=== PATIENT | female | born 1940 | race Caucasian/White ===

== ENCOUNTER 2019-04-06 09:10 | Observation (INO) ==
--- OUTSIDE RECORDS SUMMARY | 2019-04-06 09:13 | External Medical Summary | Continuity of Care Document ---
:1940 Author Name Wilda Bush, Provider Address Unavailable Unavailable , Care Team Providers Name Role Phone Wilda Bush, ObGyn Unavailable [email or web address], UNKNOWN Unavailable Unavailable Problems Active medical history not documented Allergies and Adverse Reactions Allergy history not documented Medications Medications not documented Procedures Procedures not documented Immunizations Immunizations not documented Plan of Treatment Planned Observations Planned Goals not documented Results No Known Results Results not documented
[2019-04-06] MEDS ORDERED: ACETAMINOPHEN 500 MG TAB PO STA ×2 (09:53→15:19)
--- NOTE | 2019-04-06 10:44 | XRay Report ---
XR knee LT 2V routine CLINICAL HISTORY: 78 years-old Female presenting with Pt c/o left knee pain, swelling. TECHNIQUE: Frontal and cross to lateral views of the left knee were obtained. COMPARISON: None. FINDINGS: Comminuted fracture of the patella, which is primarily oriented in a Y configuration violating the me dial and lateral aspects and extending inferiorly in a sagittal orientation. No significant displacem ent of fracture fragments. Large lipohemarthrosis. Underlying osteopenia. No significant degenerative change or malalignment. IMPRESSION: 1. Comminuted patellar fracture without significant displacement. 2. Large lipohemarthrosis. 3. Osteopenia. Electronically signed by: Martin Rocha M.D. 04/06/2019 10:43 AM
[2019-04-06] MEDS ORDERED: SODIUM CHLORIDE 0.9% 1000ML 500 ML IV ONE (11:15)
--- NOTE | 2019-04-06 11:37 | XRay Report ---
SINGLE VIEW CHEST CLINICAL HISTORY: Generalized weakness. FINDINGS: An AP, portable, upright chest radiograph is obtained. No prior studies are available for c omparison at the time of dictation. The cardiomediastinal silhouette is unremarkable. The lungs and pleural spaces are clear. No pneumothorax is seen. The skeletal structures are osteopenic. The bony t horax is grossly intact. IMPRESSION: No active disease in the chest. Electronically signed by: Freddy Swann M.D. 04/06/2019 11:36 AM
--- NOTE | 2019-04-06 12:02 | CT Scan Report ---
CT SCAN OF THE BRAIN WITHOUT IV CONTRAST CLINICAL HISTORY: Generalized weakness. Change in mental status. Fall. COMPARISON STUDY: MRI of the brain dated 08/03/2015. TECHNIQUE: Unenhanced axial CT scan of the brain is performed from the vertex to the skull base. A do se lowering technique was utilized adhering to the principles of ALARA. CT DOSE: 537.48 mGy.cm FINDINGS: Brain parenchyma: There are age-related involutional changes noting mild subcortical and periventric ular microangiopathic change. There is no hemorrhage, mass effect, or evidence of acute territorial i schemia by CT criteria. Mace-white matter differentiation is preserved. No extra-axial fluid collecti on is seen. Ventricles, sulci, cisterns: Prominent secondary to involutional change. Intracranial vasculature: There is atherosclerotic calcification of the cavernous carotid arteries. Calvarium: Unremarkable. Sinuses and mastoids: There is chronic appearing mucosal thickening within the left sphenoid sinus. T he remaining visualized paranasal sinuses are clear. The mastoid air cells are well pneumatized. Orbits: The bony orbits are grossly intact. IMPRESSION: There is no hemorrhage, mass effect, or evidence of acute territorial ischemia by CT crit gabriel. Electronically signed by: Freddy Swann M.D. 04/06/2019 12:00 PM
[2019-04-06 12:19] LABS: Basophils # (auto) 0.01 K/uL (0-0.2); Basophils % (auto) 0.1 %; Hematocrit (blood only) 34.6 % (37-47); Immature Granulocytes # (auto) 0.02 K/uL (0.00-0.02); Immature Granulocytes % (auto) 0.2 %; Lymphocytes # (auto) 1.09 K/uL (1.2-3.4); Lymphocytes % (auto) 10.6 %; Mean Corpuscular Hgb Conc 34.7 g/dL (32-36); Mean Corpuscular Volume 95.6 fL (80-100); Mean Platelet Volume 10.6 fL (7.4-10.4); Monocytes # (auto) 1.19 K/uL (0.11-0.59); Monocytes % (auto) 11.5 %; Neutrophils # (auto) 8.01 K/uL (1.4-6.5); Neutrophils % (auto) 77.6 %; Platelet Count 238 K/uL (130-400); RDW Coefficient of Variation 12.8 % (11.5-14.5); RDW Standard Deviation 44.8 fL (36.4-46.3); Red Blood Count 3.62 M/uL (4.2-5.4); White Blood Count 10.32 K/uL (4.8-10.8)
[2019-04-06 12:36] LABS: Alanine Aminotransferase 25 U/L (12-78); Albumin Level 3.7 gm/dl (3.4-5.0); Aspartate Aminotransferase 30 U/L (15-37); BUN Creatinine Ratio 21.1 (10-20); Blood Urea Nitrogen 24 mg/dl (7-18); Calcium 8.9 mg/dl (8.5-10.1); Carbon Dioxide 25 mmol/L (21-32); Chloride 109 mmol/L (98-107); Est GFR (African American) 53.3; Glucose 122 mg/dl (70-99); Potassium 3.7 mmol/L (3.5-5.1); Sodium 140 mmol/L (136-145)
[2019-04-06 12:46] LABS: Albumin Globulin Ratio 0.9 (0.9-2); Alkaline Phosphatase 95 U/L (45-117); Bilirubin,Total 0.7 mg/dl (0.2-1); Creatine Kinase 816 U/L (26-192); Globulin 3.9 gm/dl (2.5-4.0); Total Protein 7.6 gm/dl (6.4-8.2); Troponin I < 0.015 ng/ml (0-0.045)
--- NOTE | 2019-04-06 13:01 | Emergency Department Note ---
Entered by Francoise Martinez acting as a scribe for Wu Muro MD History of Present Illness General Chief complaint: Leg Injury/Pain Stated complaint: LEFT LEG PAIN Time Seen by Provider: 04/06/19 09:35 Source: patient Mode of arrival: ambulatory Limitations: no limitations History of Present Illness Provider complaint: left knee Onset (ago): hour(s) (last night) Location: knee and left Radiation: non-radiation Pain Consistency: + other (episode) Quality: + other (fall) Relieved By: + medication Exacerbated By: + movement Associated symptoms: + other (swelling, pain) Treatments prior to arrival: other (Tylenol) The patient is a 78 year old female who presents to the ER following a knee injury that occurred last night. The patient reports that last night she was in her storage closet and tripped over a box and hell on her left knee. She states that she has had worsening left knee pain and swelling sine her fall. She denies injuring her head or any other injuries. She notes that she has had difficulty ambulating secondary to the pain but that she has been taking Tylenol which does alleviate the pain. Home Medications Home Medications Medication Instructions Recorded Confirmed Type Centrum Silver 1 tab PO DAILY 04/06/19 04/06/19 History amlodipine 10 mg PO DAILY 04/06/19 04/06/19 History atorvastatin 10 mg PO HS 04/06/19 04/06/19 History lisinopril 40 mg PO DAILY 04/06/19 04/06/19 History mirtazapine 45 mg PO HS 04/06/19 04/06/19 History quetiapine 25 mg PO BID 04/06/19 04/06/19 History ranitidine HCl 300 mg PO HS 04/06/19 04/06/19 History acetaminophen [Mapap 650 mg PO Q6H PRN #30 tab 04/07/19 Rx (acetaminophen)] Allergies Allergy/AdvReac Type Severity Reaction Status Date / Time Sulfa (Sulfonamide Allergy Mild Unknown Unverified 04/06/19 10:54 Antibiotics) Past Med/Surg History Medical History Hypertension (Chronic) Breast cancer (Chronic) "DCIS s/p lumpectomy, s/p radiation, on Tamoxifen" IBS (irritable bowel syndrome) (Chronic) Lactose intolerance (Chronic) CKD (chronic kidney disease), stage III (Chronic) Osteoporosis (Chronic) Osteoarthritis (Chronic) Dementia GERD (gastroesophageal reflux disease) HLD (hyperlipidemia) Surgical History History of tubal ligation (Chronic) Hx of tonsillectomy (Chronic) S/P partial mastectomy (Chronic) S/P appendectomy (Chronic) H/O cystoscopy (Chronic) S/P removal of ovarian cyst (Chronic) H/O colonoscopy (Chronic) "03/15/2015- normal" Family History Mother , Kidney Disease Kidney disease Father Old age Social History Preferred Language: Guinean Communication Ability: Impaired Beliefs That Will Affect Care: None marital status: Current Living Situation: Spouse Feels Safe at Home: Yes Smoking Status: Never smoker Hx Alcohol Use: Yes Alcohol type: wine Hx Substance Use: No Review of Systems See HPI for pertinent positives & negatives. and A total of 6 systems reviewed and were otherwise negative Physical Exam Vital Signs Vital Signs - 24 hr 04/06/19 09:17 Temperature 36.9 C Temperature Source Oral Sepsis Recent Fever Within 48 Hours No Sepsis New/Unexplained Change in Mental Status No Sepsis Action Taken by Nursing No Action Required Pulse Rate 81 Respiratory Rate 18 Respiratory Effort / Characteristics Non-Labored Spontaneous Respiratory Depth Normal Respiratory Pattern Regular Blood Pressure 151/72 H Blood Pressure Mean 98 Blood Pressure Position Sitting Pulse Oximetry 96 Oxygen Delivery Method Room Air GENERAL: Awake, alert, well-appearing, in no acute distress HENT: Normocephalic, atraumatic. Oropharynx unremarkable. EYES: Normal conjunctiva. Sclera non-icteric. NECK: Supple. No nuchal rigidity. FROM. No JVD. RESPIRATORY: Clear to auscultation. CARDIAC: Regular rate, normal rhythm. Extremities warm and well perfused. Pulses equal. ABDOMEN: Soft, non-distended. No tenderness to palpation. No rebound or guarding. No masses. RECTAL: Deferred. MUSCULOSKELETAL: Chest examination reveals no tenderness. The back is symmetrical on inspection without obvious abnormality. There is no CVA tenderness to palpation. No joint edema. LOWER EXTREMITIES: Calves are equal size bilaterally and non-tender. Left knee is grossly swollen. Good ROM of the knee, hip and left ankle. NVI to the foot. No discoloration. NEURO: Normal sensorium. No sensory or motor deficits noted. SKIN: No rash or jaundice noted. Course 0948: Past medical records reviewed. The patient was evaluated in room A9B. A complete history and physical examination was performed. 1125: I updated the patient's . He reports that the patient was recently diagnosed with dementia and is concerned he is unable to take care of her. 1141: Case management met with the patient. 1144: I reviewed the patient's case with Dr. Navas - [facility] [place] Orthopedic Surgery. He recommends weight bear as tolerable, no range of motion and to follow-up in a week. Administered Medications Discontinued Medications Acetaminophen (Tylenol) 1,000 mg PO NOW STA Stop: 04/06/19 09:54 Last Admin: 04/06/19 10:00 Dose: 1,000 mg Documented by: [id number] Acetaminophen (Tylenol) 1,000 mg PO NOW STA Stop: 04/06/19 15:20 Last Admin: 04/06/19 15:46 Dose: 1,000 mg Documented by: [id number] Acetaminophen (Tylenol) 650 mg PO Q4H PRN PRN Reason: pain/fever Stop: 05/06/19 20:07 Last Admin: 04/07/19 06:02 Dose: 650 mg Documented by: [id number] Amlodipine Besylate (Norvasc) 10 mg PO DAILY DARREN Stop: 05/07/19 08:59 Last Admin: 04/07/19 09:17 Dose: 10 mg Documented by: [id number] Atorvastatin Calcium (Lipitor) 10 mg PO HS DARREN Stop: 05/06/19 20:59 Last Admin: 04/06/19 21:53 Dose: 10 mg Documented by: [id number] Heparin Sodium (Porcine) (Heparin Sodium (Porcine)) 5,000 units SQ Q8 DARREN Stop: 05/06/19 21:59 Last Admin: 04/07/19 13:53 Dose: 5,000 units Documented by: [id number] Cosigned by: [id number] Admin: 04/07/19 06:03 Dose: 5,000 units Documented by: [id number] Cosigned by: [id number] Admin: 04/06/19 21:55 Dose: 5,000 units Documented by: [id number] Cosigned by: [id number] Sodium Chloride (Nss 1000ml) 500 mls @ 999 mls/hr IV .Q31M ONE Stop: 04/06/19 11:45 Last Infusion: 04/06/19 14:05 Dose: 0 mls/hr Documented by: [id number] Admin: 04/06/19 13:00 Dose: 999 mls/hr Documented by: [id number] Lisinopril (Zestril) 40 mg PO DAILY DARREN Stop: 05/07/19 08:59 Last Admin: 04/07/19 09:17 Dose: 40 mg Documented by: [id number] Mirtazapine (Remeron Solutab) 45 mg PO HS DARREN Stop: 05/06/19 20:59 Last Admin: 04/06/19 21:53 Dose: 45 mg Documented by: [id number] Multivitamins/Minerals (Multivitamin W/ Minerals Tab) 1 tab PO DAILY DARREN Stop: 05/07/19 08:59 Last Admin: 04/07/19 09:17 Dose: 1 tab Documented by: [id number] Quetiapine Fumarate (Seroquel) 25 mg PO BID DARREN Stop: 05/06/19 20:59 Last Admin: 04/07/19 09:17 Dose: 25 mg Documented by: [id number] Admin: 04/06/19 21:52 Dose: 25 mg Documented by: [id number] Ranitidine HCl (Zantac) 300 mg PO HS DARREN Stop: 05/06/19 20:59 Last Admin: 04/06/19 21:53 Dose: 300 mg Documented by: [id number] Medical Decision Making Differential Diagnosis Differential diagnosis includes: fracture, dislocation, neurovascular compromise, compartment syndrome, soft tissue injury, as well as others were entertained. Medical Records Attestation: I reviewed the patient's medical records. Home Medications Current Medication List: was personally reviewed by me Laboratory Data Attestation: I reviewed the patient's lab results. Result diagrams: 04/07/19 07:36 04/07/19 07:36 Lab Results 04/06/19 04/06/19 04/06/19 Range/Units 12:07 12:07 13:50 WBC 10.32 (4.8-10.8) K/uL RBC 3.62 L (4.2-5.4) M/uL Hgb 12.0 (12.0-16.0) g/dL Hct 34.6 L (37-47) % MCV 95.6 (80-100) fL MCH 33.1 (25-34) pg MCHC 34.7 (32-36) g/dL RDW Std Deviation 44.8 (36.4-46.3) fL RDW Coeff of Cedric 12.8 (11.5-14.5) % Plt Count 238 (130-400) K/uL MPV 10.6 H (7.4-10.4) fL Immature Gran % (Auto) 0.2 % Neut % (Auto) 77.6 % Lymph % (Auto) 10.6 % Addison % (Auto) 11.5 % Eos % (Auto) 0.0 % Baso % (Auto) 0.1 % Immature Gran # (Auto) 0.02 (0.00-0.02) K/uL Neut # (Auto) 8.01 H (1.4-6.5) K/uL Lymph # (Auto) 1.09 L (1.2-3.4) K/uL Addison # (Auto) 1.19 H (0.11-0.59) K/uL Eos # (Auto) 0.00 (0-0.5) K/uL Baso # (Auto) 0.01 (0-0.2) K/uL Sodium 140 (136-145) mmol/L Potassium 3.7 (3.5-5.1) mmol/L Chloride 109 H (98-107) mmol/L Carbon Dioxide 25 (21-32) mmol/L Anion Gap 6.0 (3-11) BUN 24 H (7-18) mg/dl Creatinine 1.14 (0.6-1.2) mg/dl Est Cr Clr Drug Dosing Not Reportable Est GFR ( Amer) 53.3 Est GFR (Non-Af Amer) 46.0 BUN/Creatinine Ratio 21.1 H (10-20) Glucose 122 H (70-99) mg/dl Calcium 8.9 (8.5-10.1) mg/dl Total Bilirubin 0.7 (0.2-1) mg/dl AST 30 (15-37) U/L ALT 25 (12-78) U/L Alkaline Phosphatase 95 (45-117) U/L Total Creatine Kinase 816 H (26-192) U/L Troponin I < 0.015 (0-0.045) ng/ml Total Protein 7.6 (6.4-8.2) gm/dl Albumin 3.7 (3.4-5.0) gm/dl Globulin 3.9 (2.5-4.0) gm/dl Albumin/Globulin Ratio 0.9 (0.9-2) TSH 0.991 (0.300-4.500) uIu/ml Urine Color Yellow Urine Appearance Clear (Clear) Urine pH 8.0 H (4.5-7.5) Ur Specific [place] 1.010 (1.000-1.030) Urine Protein Negative (Negative) Urine Glucose (UA) Negative (Negative) Urine Ketones Negative (Negative) Urine Blood 1+ H (Negative) Urine Nitrite Negative (Negative) Urine Bilirubin Negative (Negative) Urine Urobilinogen Negative (Negative) Ur Leukocyte Esterase Negative (Negative) Urine WBC (Auto) 1-5 (0-5) /hpf Urine RBC (Auto) 5-10 H (0-4) /hpf U Hyaline Cast (Auto) 0 (0-5) /lpf U Epithel Cells (Auto) 5-10 H (0-5) /lpf Urine Bacteria (Auto) Negative (Negative) Imaging Data Radiologist's Impression: Radiology results as stated below per my review and the radiologist's interpretation: XR knee LT 2V routine CLINICAL HISTORY: 78 years-old Female presenting with Pt c/o left knee pain, swelling. TECHNIQUE: Frontal and cross to lateral views of the left knee were obtained. COMPARISON: None. FINDINGS: Comminuted fracture of the patella, which is primarily oriented in a Y configuration violating the medial and lateral aspects and extending inferiorly in a sagittal orientation. No significant displacement of fracture fragments. Large lipohemarthrosis. Underlying osteopenia. No significant degenerative change or malalignment. IMPRESSION: 1. Comminuted patellar fracture without significant displacement. 2. Large lipohemarthrosis. 3. Osteopenia. Electronically signed by: Martin Rocha M.D. 04/06/2019 10:43 AM SINGLE VIEW CHEST CLINICAL HISTORY: Generalized weakness. FINDINGS: An AP, portable, upright chest radiograph is obtained. No prior studies are available for comparison at the time of dictation. The cardiomediastinal silhouette is unremarkable. The lungs and pleural spaces are clear. No pneumothorax is seen. The skeletal structures are osteopenic. The bony thorax is grossly intact. IMPRESSION: No active disease in the chest. Electronically signed by: Freddy Swann M.D. 04/06/2019 11:[address] SCAN OF THE BRAIN WITHOUT IV CONTRAST CLINICAL HISTORY: Generalized weakness. Change in mental status. Fall. COMPARISON STUDY: MRI of the brain dated 08/03/2015. TECHNIQUE: Unenhanced axial CT scan of the brain is performed from the vertex to the skull base. A dose lowering technique was utilized adhering to the principles of ALARA. CT DOSE: 537.48 mGy.cm FINDINGS: Brain parenchyma: There are age-related involutional changes noting mild subcortical and periventricular microangiopathic change. There is no hemorrhage, mass effect, or evidence of acute territorial ischemia by CT criteria. Mace- white matter differentiation is preserved. No extra-axial fluid collection is seen. Ventricles, sulci, cisterns: Prominent secondary to involutional change. Intracranial vasculature: There is atherosclerotic calcification of the cavernous carotid arteries. Calvarium: Unremarkable. Sinuses and mastoids: There is chronic appearing mucosal thickening within the left sphenoid sinus. The remaining visualized paranasal sinuses are clear. The mastoid air cells are well pneumatized. Orbits: The bony orbits are grossly intact. IMPRESSION: There is no hemorrhage, mass effect, or evidence of acute territorial ischemia by CT criteria. Electronically signed by: Freddy Swann M.D. 04/06/2019 12:00 PM ECG Data Attestation: I personally reviewed and interpreted this ECG as follows: Indication: altered mental status Rate (beats per minute): 74 Rhythm: normal sinus Findings: no ST depression and no ST elevation Blood Pressure Blood Pressure Findings: Elevated blood pressure MDM Narrative This is a 78-year-old female who presents emergency department with a fall. Patient was sent for x-rays and was found to have a fractured patella. I did discuss this with both the patient and her . 2 hours into the emergency department visit the patient's decided to inform me that he felt he could no longer take care of the patient at home as she has dementia and is becoming difficult to care for him. At this point the decision was made to obtain laboratory work as well as orthopedic consults physical therapy and occupational therapy consults. The case was discussed with case management who recommended rehabilitation. This was discussed with the [facility] liaison. There is an extended period of time waiting for [facility] to get back. Because of this the patient was signed out to Dr. thomas. Impression & Plan Fracture, patella Discharge Plan Visit Data *Final* Discharge Date/Time: 04/06/19 20:19 Chief Complaint: Leg Injury/Pain Stated Complaint: LEFT LEG PAIN ED Provider: Wu Muro Discharge Problem: Fracture, patella Patient Disposition: Still a Patient Discharge Instructions Interventions: ED Discharge Assessment Last Done: 04/06/19 20:19 Discharge Problem: Fracture, patella Qualifiers: Encounter type: initial encounter Fracture type: closed Fracture morphology: unspecified fracture morphology Fracture alignment: nondisplaced Laterality: left Qualified Code(s): S82.002A - Unspecified fracture of left patella, initial encounter for closed fracture The scribe's documentation has been prepared under my direction and personally reviewed by me in its entirety. I confirm that the note above accurately reflects all work, treatment, procedures, and medical decision making performed by me.
[2019-04-06 14:16] LABS: Appearance Urine Clear (Clear); Bacteria Urine Automated Negative (Negative); Bilirubin Urine Negative (Negative); Blood Urine 1+ (Negative); Cast Urine Automated 0 /lpf (0-5); Color Urine Yellow; Glucose Urine UA Negative (Negative); Ketones Urine Negative (Negative); Leukocyte Esterase Urine Negative (Negative); Nitrite Urine Negative (Negative); Protein Urine Negative (Negative); Urobilinogen Urine Negative (Negative)
--- NOTE | 2019-04-06 17:41 | Emergency Department Note ---
ED Visit Note Patient was signed out to me pending disposition by Dr. Muro. Multiple attempts were made to place the patient in a fpc facility as family feels they can no longer care for her at home due to worsening dementia and now a new patellar fracture limiting her mobility. Attempts by case management to place her today were unsuccessful due to an unsafe discharge plan and family's inability to care for her, patient will be brought into the hospital for additional evaluation and eventual placement. Case discussed with Ifrah Chaves. . : Fracture, patella Qualifiers: Encounter type: initial encounter Fracture type: closed Fracture morphology: unspecified fracture morphology Fracture alignment: nondisplaced Laterality: left Qualified Code(s): S82.002A - Unspecified fracture of left patella, initial encounter for closed fracture
--- NOTE | 2019-04-06 18:30 | History & Physical Report ---
Date of Service April 06, 2019 Assessment & Plan (1) Fracture, patella: (2) Dementia: (3) GERD (gastroesophageal reflux disease): (4) HLD (hyperlipidemia): (5) Hypertension: (6) Breast cancer: (7) Kidney disease: (8) GERD (gastroesophageal reflux disease): (9) CKD (chronic kidney disease), stage III: Place under observation, continue current meds, DVT Pfx, Immobolizer, Pain control ROS-No Headache, No Visual Changes, No Nausea, No Vomiting, No Fever, No Chills, No Neck Pain or Stiffness, No Chest Pain, No Palpitations, No SOB, No STEWART, No Cough, No Sputum, No Wheezing, No Abdominal Pain, No Diarrhea, No Hematemesis, No Hemoptysis, No Unexpected Weight Loss, No Flank pain, No Melena, No Hematochezia, No Frequency, No Urgency, No Burning, No Hematuria, No Rashes, No Diaphoresis. Appetite is Normal, sore L Knee Physical Exam Gen-AAO x 2, NAD, Afebrile, Pleasant and [place] Head-NCAT, EOMI, PERRLA, Anicteric Sclera, No Posterior Pharyngeal Erythema Neck-Supple, No JVD, No Thyromegaly, No Masses, No LAD, No Bruits Lungs-Clear to Auscultation Bilaterally, No Rales, No Rhonchi, No Wheezing, No Crepitus Chest-No S4, +S1, +S2, No S3, No Murmurs, No Rubs, No Gallops, No Ectopy Abdomen-Soft, Bowel Sounds Present, Non Tender, Non Distended, No Hepatomegaly, No Splenomegaly, No Palpable Masses, No Rebound, No Rigidity, No Guarding Musculoskeletal-Full Range of Motion Bilaterally, No CVAT Extremities-No Cyanosis, No Clubbing, No Edema, L Knee immobilizer Nuero-Cranial Nerves II-XII grossly intact, Motor WNL, DTRs WNL, Strength WNL, Non Focal Psych-Normal Mood History of Present Illness 78 yo female c PMH of dementia, HTN, NLD, GERD, and breast Cancer presents after falling at home while cleaning out a storage bin. She tripped over a box and sustained a L Patellar fracture. Ortho reviewed the films and said no surgery need. A Left knee immobilizer was placed. did not feel comfortable taking her home so I will place her under observation Primary Care Provider: Shonda Lomax MD Allergies Allergy/AdvReac Type Severity Reaction Status Date / Time Sulfa (Sulfonamide Allergy Mild Unknown Unverified 04/06/19 10:54 Antibiotics) Home Medications Home Medications Medication Instructions Recorded Confirmed Type amlodipine 10 mg PO DAILY 04/06/19 04/06/19 History atorvastatin 10 mg PO HS 04/06/19 04/06/19 History lisinopril 40 mg PO DAILY 04/06/19 04/06/19 History mirtazapine 45 mg PO HS 04/06/19 04/06/19 History [id number]-[id number]-lycopen-lutein 1 tab PO DAILY 04/06/19 04/06/19 History [Centrum Silver] quetiapine 25 mg PO BID 04/06/19 04/06/19 History ranitidine HCl 300 mg PO HS 04/06/19 04/06/19 History Past Med/Surg History Medical History Hypertension (Chronic) Breast cancer (Chronic) "DCIS s/p lumpectomy, s/p radiation, on Tamoxifen" IBS (irritable bowel syndrome) (Chronic) Lactose intolerance (Chronic) CKD (chronic kidney disease), stage III (Chronic) Osteoporosis (Chronic) Osteoarthritis (Chronic) Dementia GERD (gastroesophageal reflux disease) HLD (hyperlipidemia) Surgical History History of tubal ligation (Chronic) Hx of tonsillectomy (Chronic) S/P partial mastectomy (Chronic) S/P appendectomy (Chronic) H/O cystoscopy (Chronic) S/P removal of ovarian cyst (Chronic) H/O colonoscopy (Chronic) "03/15/2015- normal" Family History Mother , Kidney Disease Kidney disease Father Old age Social History Preferred Language: Japanese marital status: Current Living Situation: Spouse Feels Safe at Home: Yes Smoking Status: Never smoker Results & Data Vital Signs (Past 12 Hours) Vital Signs Temp Pulse Pulse Resp BP BP Pulse Ox 04/06/19 15:00 70 18 149/76 H 97 04/06/19 13:11 74 16 143/72 H 99 04/06/19 09:17 36.9 C 81 18 151/72 H 96 Allergies Sulfa (Sulfonamide Antibiotics) Allergy (Mild, Unverified 04/06/19 10:54) Unknown Height/Weight/Isolation Height 5 ft 2 in Chemistry 04/06/19 12:07 Sodium 140 Potassium 3.7 Chloride 109 H Carbon Dioxide 25 Anion Gap 6.0 BUN 24 H Creatinine 1.14 Glucose 122 H Urinalysis 04/06/19 13:50 Urine Color Yellow Urine Appearance Clear Urine pH 8.0 H Ur Specific [place] 1.010 Urine Protein Negative Urine Glucose (UA) Negative Urine Ketones Negative Urine Blood 1+ H Urine Nitrite Negative Urine Bilirubin Negative Code Status & VTE Plan Code Status Full Code VTE Prophylaxis Plan VTE Prophylaxis will be ordered: Yes (1) Fracture, patella Encounter type: initial encounter Fracture alignment: nondisplaced Fracture morphology: unspecified fracture morphology Fracture type: closed Laterality: left Qualified Code(s): S82.002A - Unspecified fracture of left patella, initial encounter for closed fracture
[2019-04-06] MEDS ORDERED: ACETAMINOPHEN 325 MG TAB PO PRN (20:08)
[2019-04-06] MEDS ORDERED: ATORVASTATIN 10 MG TAB PO SCH (21:00)
[2019-04-06] MEDS ORDERED: MIRTAZAPINE SOLTAB 15 MG PO SCH (21:00)
[2019-04-06 21:01] LABS: INR 1.1 (0.9-1.1); Partial Thromboplastin Time 27.9 Seconds (21.0-31.0)
[2019-04-06] MEDS: QUETIAPINE FUMARATE 25 MG TABLET PO SCH (21:52)
[2019-04-06] MEDS: HEPARIN SOD 5,000 UNIT/0.5 ML VIAL SQ SCH (21:55)
[2019-04-07] MEDS: HEPARIN SOD 5,000 UNIT/0.5 ML VIAL SQ SCH ×2 (06:03→13:53)
[2019-04-07 07:53] LABS: Hematocrit (blood only) 35.2 % (37-47); Hemoglobin 12.2 g/dL (12.0-16.0); Mean Corpuscular Hgb Conc 34.7 g/dL (32-36); Mean Corpuscular Volume 96.7 fL (80-100); Mean Platelet Volume 10.5 fL (7.4-10.4); Platelet Count 228 K/uL (130-400); RDW Coefficient of Variation 12.8 % (11.5-14.5); RDW Standard Deviation 45.1 fL (36.4-46.3); Red Blood Count 3.64 M/uL (4.2-5.4); White Blood Count 9.21 K/uL (4.8-10.8)
[2019-04-07 08:19] LABS: Calcium 9.1 mg/dl (8.5-10.1); Creatinine Clr Calc Pharmacy 31.9 ml/min; Est GFR (African American) 56.3; Est GFR (Non-African American) 48.6; Potassium 3.8 mmol/L (3.5-5.1)
[2019-04-07] MEDS ORDERED: LISINOPRIL 40 MG TAB PO SCH (09:00)
[2019-04-07] MEDS ORDERED: AMLODIPINE BESYLATE 5 MG TAB PO SCH (09:00)
[2019-04-07] MEDS ORDERED: CEROVITE ADV FORMULA TAB PO SCH (09:00)
[2019-04-07] MEDS: QUETIAPINE FUMARATE 25 MG TABLET PO SCH (09:17)
--- NOTE | 2019-04-07 10:54 | Orthopedic Consultation ---
Date of Consultation April 07, 2019 Assessment & Plan (1) Fracture, patella: Nondisplaced left patella fracture-stable. No plans for surgical intervention at this time. She was seen and evaluated today by Dr. Navas. She may be weight-bear as tolerated with the knee immobilizer on her left knee at all times. She will also need to use a walker to assist with ambulation. She may be out of bed with physical therapy and Occupational Therapy but should not perform any range of motion, quad sets straight leg raising of her left knee. She can apply ice to her left knee as needed for pain or swelling. An Jarod bandage was applied to her left lower extremity to include her foot for compression. She is allowed for ankle and toe range of motion as tolerated. Elevate her left lower extremity for swelling. Ankle pumps to prevent DVT prophylaxis. Would also recommend aspirin, if able on a daily basis for the next 3-6 for DVT prophylaxis. Recommend follow-up with Dr. Navas in proximally 1 week. Okay from orthopedic standpoint for discharge to her side when bed available. We will continue to follow as inpatient. Please call [phone] with any questions. Present on Admission?: Yes History of Present Illness Reason for Consultation: left patella fracture Requesting Physician: Zenaida Wright MD Attending Physician: Zenaida Wright MD History of Present Illness Patient is a 77 year old female, s/p fall 2 days ago while at home. She states that she fell onto her left knee. Her is at the bedside and states that she initially refused to come to the ED or have an ambulance called. She was unable to weight bear normally, but was able to "hobble around". Due to pain worsening the next day, she agreed to be brought to the ED for evaluation. She denies any other injuries, she denies any previous injuries to left knee. She had x-rays in the ED and was found to have a left knee effusion with a nondisplaced left patella fracture. Dr. Navas was notified. She was stable for discharge to [facility] but they did not have a bed available. She was then admitted for care. We were asked to see her as an inpatient to give recommendations for treatment of her left patellar fracture. Allergies Allergy/AdvReac Type Severity Reaction Status Date / Time Sulfa (Sulfonamide Allergy Mild Unknown Unverified 04/06/19 10:54 Antibiotics) Home Medications Home Medications Medication Instructions Recorded Confirmed Type amlodipine 10 mg PO DAILY 04/06/19 04/06/19 History atorvastatin 10 mg PO HS 04/06/19 04/06/19 History lisinopril 40 mg PO DAILY 04/06/19 04/06/19 History mirtazapine 45 mg PO HS 04/06/19 04/06/19 History jynbgles-dmt-XU-lycopen-lutein 1 tab PO DAILY 04/06/19 04/06/19 History [Centrum Silver] quetiapine 25 mg PO BID 04/06/19 04/06/19 History ranitidine HCl 300 mg PO HS 04/06/19 04/06/19 History acetaminophen [Mapap 650 mg PO Q6H PRN #30 tab 04/07/19 Rx (acetaminophen)] Patient History Medical History Hypertension (Chronic) Breast cancer (Chronic) "DCIS s/p lumpectomy, s/p radiation, on Tamoxifen" IBS (irritable bowel syndrome) (Chronic) Lactose intolerance (Chronic) CKD (chronic kidney disease), stage III (Chronic) Osteoporosis (Chronic) Osteoarthritis (Chronic) Dementia GERD (gastroesophageal reflux disease) HLD (hyperlipidemia) Surgical History History of tubal ligation (Chronic) Hx of tonsillectomy (Chronic) S/P partial mastectomy (Chronic) S/P appendectomy (Chronic) H/O cystoscopy (Chronic) S/P removal of ovarian cyst (Chronic) H/O colonoscopy (Chronic) "03/15/2015- normal" Family History Mother , Kidney Disease Kidney disease Father Old age Social History Preferred Language: Amharic Communication Ability: Impaired Beliefs That Will Affect Care: None marital status: Current Living Situation: Spouse Feels Safe at Home: Yes Safety Concerns: Feels Safe At This Time Smoking Status: Never smoker Hx Alcohol Use: Yes Alcohol type: wine Hx Substance Use: No Review of Systems Musculoskeletal: + joint pain (left knee), + swelling and + limited range of motion; no radicular pain and no muscle atrophy Denies any numbness or tingling. Denies any bleeding at time of injury. States that she's just unable to lift her leg or walk without pain. Physical Exam Physical Exam: Exam focused on her left lower extremity. She was seen and evaluated today by myself as well as Dr. Navas. She does have a moderate to large effusion of her left knee. Her skin is intact. She has no prepatellar effusion. She is point tender with palpation over her left patella. She is nontender over the medial or lateral condyle of her distal femur. She has stable at collateral ligaments. No range of motion was attempted of the knee due to her patella fracture. She is unable to do belly straight leg raise due to pain. She has no calf pain. Her calf is supple. No distal edema of her le ft lower extremity. She has full ankle range of motion and toe range of motion with comfort. Dorsalis pedis and posterior tibial pulses are 1+. Capillary refill is brisk. Her foot is warm. Skin is intact. Constitutional: WD/WN, vitals as above Psychiatric: Orientation: alert, oriented to person and cooperative; + not oriented to place and + not oriented to time Results & Data Vital Signs (Past 12 Hours) Vital Signs Temp Pulse Pulse Resp BP BP Pulse Ox 04/07/19 07:47 37 C 80 18 156/58 H 96 04/06/19 23:42 36.4 C L 78 19 153/75 H 96 Laboratory Results 04/07/19 04/07/19 04/06/19 Range/Units 07:36 07:36 20:32 WBC 9.21 (4.8-10.8) K/uL RBC 3.64 L (4.2-5.4) M/uL Hgb 12.2 (12.0-16.0) g/dL Hct 35.2 L (37-47) % MCV 96.7 (80-100) fL MCH 33.5 (25-34) pg MCHC 34.7 (32-36) g/dL RDW Std Deviation 45.1 (36.4-46.3) fL RDW Coeff of Cedric 12.8 (11.5-14.5) % Plt Count 228 (130-400) K/uL MPV 10.5 H (7.4-10.4) fL PT 11.0 (9.0-12.0) Seconds INR 1.1 (0.9-1.1) APTT 27.9 (21.0-31.0) Seconds PTT Ratio 1.0 Sodium 141 (136-145) mmol/L Potassium 3.8 (3.5-5.1) mmol/L Chloride 111 H (98-107) mmol/L Carbon Dioxide 22 (21-32) mmol/L Anion Gap 9.0 (3-11) BUN 25 H (7-18) mg/dl Creatinine 1.09 (0.6-1.2) mg/dl Est Cr Clr Drug Dosing 31.9 ml/min Est GFR ( Amer) 56.3 Est GFR (Non-Af Amer) 48.6 BUN/Creatinine Ratio 23.0 H (10-20) Glucose 93 (70-99) mg/dl Calcium 9.1 (8.5-10.1) mg/dl Total Creatine Kinase 619 H (26-192) U/L Diagnostic Findings XR knee LT 2V routine CLINICAL HISTORY: 78 years-old Female presenting with Pt c/o left knee pain, swelling. TECHNIQUE: Frontal and cross to lateral views of the left knee were obtained. COMPARISON: None. FINDINGS: Comminuted fracture of the patella, which is primarily oriented in a Y configuration violating the medial and lateral aspects and extending inferiorly in a sagittal orientation. No significant displacement of fracture fragments. Large lipohemarthrosis. Underlying osteopenia. No significant degenerative change or malalignment. IMPRESSION: 1. Comminuted patellar fracture without significant displacement. 2. Large lipohemarthrosis. 3. Osteopenia. (1) Fracture, patella Encounter type: initial encounter Fracture alignment: nondisplaced Fracture morphology: unspecified fracture morphology Fracture type: closed Laterality: left Qualified Code(s): S82.002A - Unspecified fracture of left patella, initial encounter for closed fracture
--- NOTE | 2019-04-07 15:07 | Hospitalist Progress Note ---
Date of Service April 07, 2019 Assessment & Plan (1) Fracture, patella: S/P mechanical fall Knee xray showed comminuted patellar fracture without significant displacement. Ortho on board recommended weight bear as tolerable, no range of motion and to follow-up in a week. Continue PT/OT Fall precaution Pain control with Tylenol (2) Hypertension: BP stable Continue Amlodipine 10mg and Lisinopril 40m daily (3) CKD (chronic kidney disease), stage III: Creatinine stable Dementia Continue quetiapine Stable Dyslipidemia Continue statin DVT px on Heparin subq CODE STATUS FULL dianna Disposition Discharge today to rehab Subjective Pt was seen and examined Sitting in chair with no distress with at bedside Pt said that she feels ok She is ready to be discharged today Denies any chest pain, palpitation and SOB Physical Exam Physical Exam: General- No acute distress Head- atraumatic Eyes- PERRL, EOMI, ENT- oropharynx clear Neck- supple, no JVD Lungs- clear to auscultation Heart- regular rhythm; no murmur Abdomen- normal bowel sounds, soft, nontender Extremities- no calf tenderness, left knee tenderness Neuro- alert, oriented x 3; PERRL, EOMI; no facial palsy; no dysarthria Skin- warm & dry Results & Data Vital Signs (Past 12 Hours) Vital Signs Temp Pulse Resp BP Pulse Ox 04/07/19 11:25 36.5 C 78 18 138/68 96 04/07/19 07:47 37 C 80 18 156/58 H 96 (1) Fracture, patella Encounter type: initial encounter Fracture alignment: nondisplaced Fracture morphology: unspecified fracture morphology Fracture type: closed Laterality: left Qualified Code(s): S82.002A - Unspecified fracture of left patella, initial encounter for closed fracture
--- NOTE | 2019-04-07 15:21 | Discharge Summary ---
Date of Service April 07, 2019 Admission HPI Per Admitting Provider 78 yo female c PMH of dementia, HTN, NLD, GERD, and breast Cancer presents after falling at home while cleaning out a storage bin. She tripped over a box and sustained a L Patellar fracture. Ortho reviewed the films and said no surgery need. A Left knee immobilizer was placed. did not feel comfortable taking her home so I will place her under observation Primary Care Provider: Shonda Lomax MD Admission Exam Per Admitting Provider Gen-AAO x 2, NAD, Afebrile, Pleasant and BEAVER Head-NCAT, EOMI, PERRLA, Anicteric Sclera, No Posterior Pharyngeal Erythema Neck-Supple, No JVD, No Thyromegaly, No Masses, No LAD, No Bruits Lungs-Clear to Auscultation Bilaterally, No Rales, No Rhonchi, No Wheezing, No Crepitus Chest-No S4, +S1, +S2, No S3, No Murmurs, No Rubs, No Gallops, No Ectopy Abdomen-Soft, Bowel Sounds Present, Non Tender, Non Distended, No Hepatomegaly, No Splenomegaly, No Palpable Masses, No Rebound, No Rigidity, No Guarding Musculoskeletal-Full Range of Motion Bilaterally, No CVAT Extremities-No Cyanosis, No Clubbing, No Edema, L Knee immobilizer Nuero-Cranial Nerves II-XII grossly intact, Motor WNL, DTRs WNL, Strength WNL, Non Focal Psych-Normal Mood Principal Diagnosis Fracture, patella Dementia HLD (hyperlipidemia) Hypertension CKD (chronic kidney disease), stage III: Discharge Exam General- No acute distress Head- atraumatic Eyes- PERRL, EOMI, ENT- oropharynx clear Neck- supple, no JVD Lungs- clear to auscultation Heart- regular rhythm; no murmur Abdomen- normal bowel sounds, soft, nontender Extremities- no calf tenderness, left knee tenderness Neuro- alert, oriented x 3; PERRL, EOMI; no facial palsy; no dysarthria Skin- warm & dry Discharge Data Allergies Allergy/AdvReac Type Severity Reaction Status Date / Time Sulfa (Sulfonamide Allergy Mild Unknown Unverified 04/06/19 10:54 Antibiotics) Consultations 04/06/19 20:08 Consult Case Management - Discharge Planning Routine Consult Orthopedic Surgery Routine Ordered Studies 04/06/19 11:15 CT head/brain wo con Stat CT SCAN OF THE BRAIN WITHOUT IV CONTRAST CLINICAL HISTORY: Generalized weakness. Change in mental status. Fall. COMPARISON STUDY: MRI of the brain dated 08/03/2015. TECHNIQUE: Unenhanced axial CT scan of the brain is performed from the vertex to the skull base. A dose lowering technique was utilized adhering to the principles of ALARA. CT DOSE: 537.48 mGy.cm FINDINGS: Brain parenchyma: There are age-related involutional changes noting mild subcortical and periventricular microangiopathic change. There is no hemorrhage, mass effect, or evidence of acute territorial ischemia by CT criteria. Mace-whi te matter differentiation is preserved. No extra-axial fluid collection is seen. Ventricles, sulci, cisterns: Prominent secondary to involutional change. Intracranial vasculature: There is atherosclerotic calcification of the cavernous carotid arteries. Calvarium: Unremarkable. Sinuses and mastoids: There is chronic appearing mucosal thickening within the left sphenoid sinus. The remaining visualized paranasal sinuses are clear. The mastoid air cells are well pneumatized. Orbits: The bony orbits are grossly intact. IMPRESSION: There is no hemorrhage, mass effect, or evidence of acute te rritorial ischemia by CT criteria. Electronically signed by: Freddy Swann M.D. 04/06/2019 12:00 PM Dictated: 04/06/19 1157 Transcribed: 04/06/19 1157 SINGLE VIEW CHEST CLINICAL HISTORY: Generalized weakness. FINDINGS: An AP, portable, upright chest radiograph is obtained. No prior studies are available for comparison at the time of dictation. The cardiomediastinal silhouette is unremarkable. The lungs and pleural spaces are clear. No pneumothorax is seen. The skeletal structures are osteopenic. The bony thorax is grossly intact. IMPRESSION: No active disease in the chest. Electronically signed by: Freddy Swann M.D. 04/06/2019 11:36 AM Dictated: 04/06/19 1135 Transcribed: 04/06/19 1135 XR knee LT 2V routine CLINICAL HISTORY: 78 years-old Female presenting with Pt c/o left knee pain, swelling. TECHNIQUE: Frontal and cross to lateral views of the left knee were obtained. COMPARISON: None. FINDINGS: Comminuted fracture of the patella, which is primarily oriented in a Y configuration violating the medial and lateral aspects and extending inferiorly in a sagittal orientation. No significant displacement of fracture fragments. Large lipohemarthrosis. Underlying osteopenia. No significant degenerative change or malalignment. IMPRESSION: 1. Comminuted patellar fracture without significant displacement. 2. Large lipohemarthrosis. 3. Osteopenia. Electronically signed by: Martin Rocha M.D. 04/06/2019 10:43 AM Dictated: 04/06/19 1041 Transcribed: 04/06/19 1041 Hospital Course (1) Fracture, patella: S/P mechanical fall Knee xray showed comminuted patellar fracture without significant displacement. Ortho on board recommended weight bear as tolerable, no range of motion and to follow-up in a week. Continue PT/OT Fall precaution Pain control with Tylenol (2) Hypertension: BP stable Continue Amlodipine 10mg and Lisinopril 40m daily (3) CKD (chronic kidney disease), stage III: Creatinine stable Dementia Continue quetiapine Stable Dyslipidemia Continue statin DVT px on Heparin subq CODE STATUS FULL dianna Disposition Discharge today to rehab Total Time Total Time Spent Total Time Spent (In Minutes): 35 minutes Total Time Includes: Examination of the Patient, Discharge Planning, Medication Reconciliation, Communication With Other Providers and Other Discharge Plan Discharge Items Patient Disposition: [facility] Reason For Visit: PATELLAR FRACTURE Discharge Diagnosis: Fracture, patella Dementia HLD (hyperlipidemia) Hypertension: CKD (chronic kidney disease), stage III: Discharge Goals: Decrease discomfort, Improve disease control, Improve function and Increase independence Activity: Resume your previous activity Activity Comment: As tolerated Non-emergency contact: Primary Care Provider and Specialist Call non-emergency contact if: you have any medication questions, your symptoms worsen and your pain is not controlled Follow-up/Referrals: Shonda Lomax MD [Primary Care Provider] - Martin Navas MD [Surgeon] - Diet: Heart Healthy Addtl Provider Instructions: Follow up with your primary care provider once discharge from rehab Fall precaution Continue physical and occupational therapy Ice to left knee as needed for pain/swelling Elevate left lower extremity as needed for pain/swelling. Weight bear as tolerated left lower extremity with knee immobilizer with assistance of a walker No range of motion to left knee, no Prescriptions: New acetaminophen [Mapap (acetaminophen)] 325 mg Tablet 650 mg PO Q6H PRN (Reason: pain) Qty: 30 RF: 0 Continued quetiapine 25 mg tablet 25 mg PO BID RF: 0 atorvastatin 10 mg tablet 10 mg PO HS RF: 0 ranitidine HCl 300 mg tablet 300 mg PO HS RF: 0 lisinopril 20 mg tablet 40 mg PO DAILY RF: 0 amlodipine 10 mg tablet 10 mg PO DAILY RF: 0 mirtazapine 45 mg tablet 45 mg PO HS RF: 0 Centrum Silver 0.4-300-250 mg-mcg-mcg Tablet 1 tab PO DAILY RF: 0 Stand-Alone Forms: [facility] Discharge Orders: Discharge Order (Routine); Ordered 04/07/19 Ordered By: Zenaida Wright Skilled Items Patient informed of condition?: Yes DNR: No Discharge Level of Care: Skilled Communicable Disease: No Discharge Prognosis: Stable Admission Data Admit Date/Time: 04/06/19 17:57 Attending Provider: Zenaida Wright Admit Provider: Gregorio Haro Primary Care Provider: Shonda Lomax Other Providers: Martin Navas [place] Service: Medical
== END 2019-04-07 16:50 ==
LOC: 3N 09:10 → 3W 09:10 → ED 09:10 → SUATTDRO 17:57 → 3N 20:19

== ENCOUNTER 2020-10-30 11:34 | Inpatient (IN) ==
--- NOTE | 2020-10-30 12:27 | Emergency Department Note ---
Impression & Plan Closed hip fracture, COVID-19, Fall, Acute hypokalemia ED Provider Note NAME: MARYAN MERRITT AGE: 80 SEX: F : 1940 ARRIVES VIA: Ambulance INFORMANT: Patient ED PROVIDER(S): Blayne Lucero DO CHIEF COMPLAINT: Right hip pain HPI: Patient is an 80-year-old female who presents the ER as she was found down on the floor in the bathroom. She was complaining of hip pain. She has demented. Small contusion on the head right elbow and right hip. History is limited otherwise secondary to mentation. ROS: History is limited secondary to mentation PAST MEDICAL HISTORY:See Below PAST SURGICAL HISTORY:See Below FAMILY HISTORY:See Below SOCIAL HISTORY:See Below HOME MEDICATIONS:See Below ALLERGIES:See Below VITALS:See Below PHYSICAL EXAMINATION: GENERAL: Sitting up in bed, alert, chronically ill-appearing, cachectic, disheveled EYE EXAM: normal conjunctiva. OROPHARYNX: Dry mucous membranes NECK: supple, no nuchal rigidity, no adenopathy, non-tender LUNGS: Clear to auscultation. Normal chest wall mechanics HEART: no murmurs, S1 normal and S2 normal ABDOMEN: abdomen soft, non-tender, normo-active bowel sounds, no masses, no rebound or guarding. BACK: Back is symmetrical on inspection and there is no deformity, no midline tenderness, no CVA tenderness. UPPER EXTREMITIES: upper extremities are grossly normal. LOWER EXTREMITIES: No pitting edema. NEURO EXAM: Awake intermittently moaning not moving right lower extremity but moving bilateral upper extremities MEDICAL DECISION MAKING: Patient is an 80-year-old female with dementia the presents the ER found down on the floor. IV was established blood work was obtained. CT head and cervical spine were unremarkable. X-rays of the pelvis show right hip fracture. Labs show no significant leukocytosis or anemia. INR unremarkable. BMP with mild hypokalemia. LFTs bilirubin was unremarkable. Troponin was negative. Covid was positive. Discussed with and updated him via phone. Discussed with the hospitalist for further evaluation. Patient rested extremely comfortably in the ER and very difficult to arouse intermittently and consequently was not given any pain medications as she was comfortable lying. Triage Nursing notes reviewed. Prior medical records reviewed Vital Signs: reviewed and remarkable for no significant abnormalities Differential diagnosis: Differential diagnoses include major intracranial, cervical, spinal, thoracic, abdominal, pelvic and neurologic injury. Fracture, contusion, sprain, strain, laceration, abrasions included as well. ER treatment provided: See below Diagnostics interpreted by me: ECG: none Cardiac Monitoring: An order was placed for continuous cardiac monitoring. The monitor shows a rate of 61 with sinus rhythm. Laboratory studies: As stated above and show below. Imaging studies: CTs of the head and cervical spine showed no acute pathology X-ray of the right hip and pelvis show right hip fracture Consultation(s): Discussed with Ifrah Liz for further evaluation ED COURSE: Procedures: none Critical Care: None Past Med/Surg History Medical History (Updated 10/30/20 @ 14:27 by Blayne Lucero DO) Breast cancer "DCIS s/p lumpectomy, s/p radiation, on Tamoxifen" CKD (chronic kidney disease), stage III Dementia GERD (gastroesophageal reflux disease) HLD (hyperlipidemia) Hypertension IBS (irritable bowel syndrome) Lactose intolerance Osteoarthritis Osteoporosis Surgical History H/O colonoscopy "03/15/2015- normal" H/O cystoscopy History of tubal ligation Hx of tonsillectomy S/P appendectomy S/P partial mastectomy S/P removal of ovarian cyst Family History Mother , Kidney Disease Kidney disease Father Old age Social History Smoking Status: Unknown if ever smoked Hx Alcohol Use: Yes Alcohol type: wine Hx Substance Use: No Preferred Language: Cuban Communication Ability: Impaired Beliefs That Will Affect Care: None marital status: Current Living Situation: Spouse Feels Safe at Home: Yes Assistive Devices: Brace/Splint/Immobilizer, Denture - Upper and Walker Allergies Allergies Allergy/AdvReac Type Severity Reaction Status Date / Time Sulfa (Sulfonamide Allergy Mild Unknown Unverified 10/30/20 13:53 Antibiotics) lactose AdvReac Intermediate GI Unverified 10/30/20 13:53 intolerance Home Meds Home Medications Medication Instructions Recorded Confirmed amlodipine 10 mg PO DAILY 04/06/19 10/30/20 atorvastatin 10 mg PO HS 04/06/19 10/30/20 famotidine 20 mg PO BID 10/30/20 10/30/20 mirtazapine 15 mg PO HS 10/30/20 10/30/20 olanzapine 5 mg PO HS 10/30/20 10/30/20 trazodone 50 mg PO HS 10/30/20 10/30/20 Results & Data (ED) Vital Signs Vital Signs - 24 hr 10/30/20 11:51 10/30/20 12:31 10/30/20 14:00 Temperature 36.7 C Temperature Source Oral Pulse Rate 59 L Pulse Rate [Finger] 59 L Respiratory Rate 20 20 Blood Pressure 134/60 Blood Pressure [Right Arm] 134/77 Blood Pressure Mean 84 Blood Pressure Mean [Right Arm] 96 Pulse Oximetry 99 98 97 Oxygen Delivery Method Room Air Room Air Room Air Sepsis Recent Fever Within 48 Hours No Sepsis New/Unexplained Change in Mental Status No Sepsis Action Taken by Nursing No Action Required Laboratory Data Result diagrams: 10/30/20 12:24 10/30/20 12:24 Lab Results 10/30/20 10/30/20 10/30/20 Range/Units 12:24 12:24 12:24 WBC 5.57 (4.8-10.8) K/uL RBC 4.19 L (4.2-5.4) M/uL Hgb 13.9 (12.0-16.0) g/dL Hct 40.7 (37-47) % MCV 97.1 (80-100) fL MCH 33.2 (25-34) pg MCHC 34.2 (32-36) g/dL RDW Std Deviation 45.6 (36.4-46.3) fL RDW Coeff of Cedric 12.9 (11.5-14.5) % Plt Count 172 (130-400) K/uL MPV 11.1 H (7.4-10.4) fL Immature Gran % (Auto) 0.2 % Neut % (Auto) 81.1 % Lymph % (Auto) 11.7 % [place] % (Auto) 6.8 % Eos % (Auto) 0.0 % Baso % (Auto) 0.2 % Neut # (Auto) 4.52 (1.4-6.5) K/uL Lymph # (Auto) 0.65 L (1.2-3.4) K/uL [place] # (Auto) 0.38 (0.11-0.59) K/uL Eos # (Auto) 0.00 (0-0.5) K/uL Baso # (Auto) 0.01 (0-0.2) K/uL Immature Gran # (Auto) 0.01 (0.00-0.02) K/uL PT 10.8 (9.0-12.0) Seconds INR 1.0 (0.9-1.1) Sodium 143 (136-145) mmol/L Potassium 3.3 L (3.5-5.1) mmol/L Chloride 108 H (98-107) mmol/L Carbon Dioxide 26 (21-32) mmol/L Anion Gap 8.0 (3-11) BUN 25 H (7-18) mg/dl Creatinine 0.93 (0.6-1.2) mg/dl Est Cr Clr Drug Dosing Not Reportable Est GFR ( Amer) 67.3 Est GFR (Non-Af Amer) 58.0 BUN/Creatinine Ratio 27.1 H (10-20) Glucose 129 H (70-99) mg/dl Calcium 8.4 L (8.5-10.1) mg/dl Total Bilirubin 0.7 (0.2-1) mg/dl AST 32 (15-37) U/L ALT 35 (12-78) U/L Alkaline Phosphatase 90 (45-117) U/L Troponin I < 0.015 (0-0.045) ng/ml Total Protein 7.1 (6.4-8.2) gm/dl Albumin 3.6 (3.4-5.0) gm/dl Globulin 3.5 (2.5-4.0) gm/dl Albumin/Globulin Ratio 1.0 (0.9-2) SARS-CoV-2 Ag (Rapid) (Negative) 10/30/20 Range/Units Unknown WBC (4.8-10.8) K/uL RBC (4.2-5.4) M/uL Hgb (12.0-16.0) g/dL Hct (37-47) % MCV (80-100) fL MCH (25-34) pg MCHC (32-36) g/dL RDW Std Deviation (36.4-46.3) fL RDW Coeff of Cedric (11.5-14.5) % Plt Count (130-400) K/uL MPV (7.4-10.4) fL Immature Gran % (Auto) % Neut % (Auto) % Lymph % (Auto) % [place] % (Auto) % Eos % (Auto) % Baso % (Auto) % Neut # (Auto) (1.4-6.5) K/uL Lymph # (Auto) (1.2-3.4) K/uL [place] # (Auto) (0.11-0.59) K/uL Eos # (Auto) (0-0.5) K/uL Baso # (Auto) (0-0.2) K/uL Immature Gran # (Auto) (0.00-0.02) K/uL PT (9.0-12.0) Seconds INR (0.9-1.1) Sodium (136-145) mmol/L Potassium (3.5-5.1) mmol/L Chloride (98-107) mmol/L Carbon Dioxide (21-32) mmol/L Anion Gap (3-11) BUN (7-18) mg/dl Creatinine (0.6-1.2) mg/dl Est Cr Clr Drug Dosing Est GFR ( Amer) Est GFR (Non-Af Amer) BUN/Creatinine Ratio (10-20) Glucose (70-99) mg/dl Calcium (8.5-10.1) mg/dl Total Bilirubin (0.2-1) mg/dl AST (15-37) U/L ALT (12-78) U/L Alkaline Phosphatase (45-117) U/L Troponin I (0-0.045) ng/ml Total Protein (6.4-8.2) gm/dl Albumin (3.4-5.0) gm/dl Globulin (2.5-4.0) gm/dl Albumin/Globulin Ratio (0.9-2) SARS-CoV-2 Ag (Rapid) Positive A* (Negative) Discharge Plan Visit Data Chief Complaint: Hip Pain ED Provider: Blayne Lucero Discharge Problem: Closed hip fracture, COVID-19, Fall, Acute hypokalemia Forms Stand Alone Forms: My [facility] [place] [facility] Prescriptions Prescriptions: No Action atorvastatin 10 mg tablet 10 mg PO HS RF: 0 amlodipine 10 mg tablet 10 mg PO DAILY RF: 0 trazodone 50 mg Tablet 50 mg PO HS RF: 0 famotidine 20 mg tablet 20 mg PO BID RF: 0 mirtazapine 15 mg tablet 15 mg PO HS RF: 0 olanzapine 5 mg tablet,disintegrating 5 mg PO HS RF: 0 [facility]errals [facility] - Discharge Problem: Closed hip fracture Qualifiers: Encounter type: initial encounter Laterality: right Qualified Code(s): S72.001A - Fracture of unspecified part of neck of right femur, initial encounter for closed fracture Fall Qualifiers: Encounter type: initial encounter Qualified Code(s): W19.XXXA - Unspecified fall, initial encounter
[2020-10-30 12:38] LABS: Basophils # (auto) 0.01 K/uL (0-0.2); Basophils % (auto) 0.2 %; Hematocrit (blood only) 40.7 % (37-47); Hemoglobin 13.9 g/dL (12.0-16.0); Immature Granulocytes # (auto) 0.01 K/uL (0.00-0.02); Immature Granulocytes % (auto) 0.2 %; Lymphocytes # (auto) 0.65 K/uL (1.2-3.4); Lymphocytes % (auto) 11.7 %; Mean Corpuscular Hemoglobin 33.2 pg (25-34); Mean Corpuscular Hgb Conc 34.2 g/dL (32-36); Mean Corpuscular Volume 97.1 fL (80-100); Mean Platelet Volume 11.1 fL (7.4-10.4); Monocytes # (auto) 0.38 K/uL (0.11-0.59); Monocytes % (auto) 6.8 %; Neutrophils # (auto) 4.52 K/uL (1.4-6.5); Neutrophils % (auto) 81.1 %; Platelet Count 172 K/uL (130-400); RDW Coefficient of Variation 12.9 % (11.5-14.5); RDW Standard Deviation 45.6 fL (36.4-46.3); Red Blood Count 4.19 M/uL (4.2-5.4); White Blood Count 5.57 K/uL (4.8-10.8)
--- NOTE | 2020-10-30 12:44 | XRay Report ---
XR chest 1V portable CLINICAL HISTORY: Trauma. Chest pain COMPARISON STUDY: 03/22/2020 FINDINGS: The cardiac and mediastinal contours are normal. There is no evidence of focal pulmonary co nsolidation. There is no evidence of failure. No pleural effusions are visualized.[No pneumothorax is visualized. IMPRESSION: No active disease in the chest. ACT 112: Negative or not required by law. Electronically signed by: Anthony Ny M.D. 10/30/2020 12:42 PM
--- NOTE | 2020-10-30 12:48 | XRay Report ---
XR hip 1V RT w pelvis CLINICAL HISTORY: Right hip pain. COMPARISON STUDY: None. FINDINGS: Slightly angulated and impacted intertrochanteric fracture within the proximal right femur. No dislocation. The visualized pelvic bones are intact. Focal cortical irregularity along the superi or aspect of the left femoral neck. A left hip fracture is considered less likely but not entirely ex cluded. No radiopaque foreign bodies. Soft tissues are unremarkable. The visualized sacrum appears in tact. IMPRESSION: 1. Intertrochanteric fracture within the proximal right femur. No dislocation. 2. Focal cortical irregularity along the superior aspect of the left femoral neck. A left hip fractur e is considered less likely but not entirely excluded. Dedicated left hip radiograph is recommended f or further evaluation. ACT 112: Negative or not required by law. Electronically signed by: Francois Morel M.D. 10/30/2020 12:46 PM
[2020-10-30 12:52] LABS: Prothrombin Time 10.8 Seconds (9.0-12.0)
[2020-10-30 12:55] LABS: Alanine Aminotransferase 35 U/L (12-78); Albumin Level 3.6 gm/dl (3.4-5.0); Aspartate Aminotransferase 32 U/L (15-37); BUN Creatinine Ratio 27.1 (10-20); Blood Urea Nitrogen 25 mg/dl (7-18); Calcium 8.4 mg/dl (8.5-10.1); Carbon Dioxide 26 mmol/L (21-32); Chloride 108 mmol/L (98-107); Est GFR (African American) 67.3; Glucose 129 mg/dl (70-99); Potassium 3.3 mmol/L (3.5-5.1); Sodium 143 mmol/L (136-145)
[2020-10-30 13:00] LABS: Alkaline Phosphatase 90 U/L (45-117); Bilirubin,Total 0.7 mg/dl (0.2-1); Globulin 3.5 gm/dl (2.5-4.0); Total Protein 7.1 gm/dl (6.4-8.2); Troponin I < 0.015 ng/ml (0-0.045)
--- NOTE | 2020-10-30 13:04 | CT Scan Report ---
HEAD CT NONCONTRAST CT DOSE: HISTORY: fall hit head TECHNIQUE: Multiaxial CT images of the head were performed without the use of intravenous contrast. A utomated exposure control was utilized for this study. A dose lowering technique was utilized adheri ng to the principles of ALARA. Comparison: Head CT 03/30/2020. Findings: Chronic partial opacification of the left sphenoid sinus. The mastoid air cells are clear. The calvarium and skull base are intact. There is no mass, hematoma, midline shift, acute infarct. Wh ite matter hypodensity is nonspecific but suggestive of microvascular ischemic change. The ventricles and sulci demonstrate mild age-related involutional changes. Impression: No significant change compared to the prior study. No acute intracranial abnormality. ACT 112: Negative or not required by law. Electronically signed by: Francois Morel M.D. 10/30/2020 1:03 PM
--- NOTE | 2020-10-30 13:06 | CT Scan Report ---
CT OF THE CERVICAL SPINE CLINICAL HISTORY: Neck pain status post trauma COMPARISON STUDY: No previous studies for comparison. CT DOSE: 897.62 mGy.cm TECHNIQUE: CT scan of the cervical spine was performed from the skull base to the thoracic inlet. Daya ges are reviewed in the axial, sagittal, and coronal planes. IV contrast was not administered for thi s examination. A dose lowering technique was utilized adhering to the principles of ALARA. FINDINGS: The visualized portions of the lung apices reveal no evidence of pneumothorax. There is a small amoun t of fluid present within the sphenoid sinus. The prevertebral soft tissues are normal. No fractures or subluxations are visualized. There are multilevel degenerative changes IMPRESSION: No evidence of acute fracture or traumatic subluxation. ACT 112: Negative or not required by law. Electronically signed by: Anthony Ny M.D. 10/30/2020 1:04 PM
--- NOTE | 2020-10-30 13:30 | XRay Report ---
XR hip LT min 2V CLINICAL HISTORY: Left hip pain COMPARISON: None. DISCUSSION: The femoral neck appears foreshortened on the AP view, but no fractures are visualized on the lateral view. If symptoms persist, an MRI could be obtained in follow-up. There are mild degener ative changes. IMPRESSION: 1. Slight foreshortening of the femoral neck on the AP view, but no evidence of fracture on the later al view. If symptoms persist, an MRI could be obtained to exclude an occult fracture. ACT 112: Negative or not required by law. Electronically signed by: Anthony Ny M.D. 10/30/2020 1:29 PM
--- NOTE | 2020-10-30 15:31 | History & Physical Report ---
Date of Service October 30, 2020 Assessment & Plan (1) Closed hip fracture: -Admit to [facility] -Patient presenting from [facility] after she was found on the bathroom floor after an unwitnessed fall -In the ED, found to have right intertrochanteric fracture within the proximal femur -Questionable abnormality noted of left femoral neck on XR, obtain MRI for follow-up -Pain control with bowel regimen -PT/OT when appropriate -Ortho consult, case discussed with Dr. Fuentes -EKG without acute ST changes, CXR negative for acute cardiopulmonary disease. No further preoperative testing is warranted at this time. Given patient's advanced age and underlying dementia, would place patient at moderate risk for surgery. (2) COVID-19: -Saturating well on room air, no signs of pneumonia on CXR -Does not meet criteria for treatment at this time (3) Hypertension: -BP controlled, continue amlodipine (4) CKD (chronic kidney disease), stage III: -Baseline creatinine runs in the low 1's -Creatinine 0.9 today -Monitor renal functions (5) Dementia: -Continue home medications (6) DVT prophylaxis: -SQ heparin History of Present Illness Chief Complaint: Fall, right hip pain Primary Care Provider: [facility] 80-year-old female with PMH dementia, CKD stage III, HTN, and other problems listed below who presents the ED for evaluation after a fall and right hip pain. Patient's dementia is fairly advanced, therefore history is unobtainable from her. I spoke with the staff at [facility] who report that they found the patient on the floor in the bathroom this morning. She had unwitnessed fall. At baseline, patient ambulates unassisted however is confused. The staff reports the patient has been doing well recently. No recent illnesses. She was tested for COVID-19 about 2 weeks ago and was negative. In the ED, patient is found to have right intertrochanteric hip fracture. She also tested positive for COVID-19. She is saturating well on room air and CXR negative for acute cardiopulmonary findings. Allergies Allergy/AdvReac Type Severity Reaction Status Date / Time Sulfa (Sulfonamide Allergy Mild Unknown Unverified 10/30/20 13:53 Antibiotics) lactose AdvReac Intermediate GI Unverified 10/30/20 13:53 intolerance Home Medications Medication Instructions Recorded Confirmed Type amlodipine 10 mg PO DAILY 04/06/19 10/30/20 History atorvastatin 10 mg PO HS 04/06/19 10/30/20 History famotidine 20 mg PO BID 10/30/20 10/30/20 History mirtazapine 15 mg PO HS 10/30/20 10/30/20 History olanzapine 5 mg PO HS 10/30/20 10/30/20 History trazodone 50 mg PO HS 10/30/20 10/30/20 History Past Med/Surg History Medical History (Updated 10/30/20 @ 15:27 by LEÓN Caro) Breast cancer DCIS s/p lumpectomy, s/p radiation CKD (chronic kidney disease), stage III Dementia Fracture, patella GERD (gastroesophageal reflux disease) HLD (hyperlipidemia) Hypertension IBS (irritable bowel syndrome) Lactose intolerance Osteoarthritis Osteoporosis Surgical History H/O colonoscopy "03/15/2015- normal" H/O cystoscopy History of tubal ligation Hx of tonsillectomy S/P appendectomy S/P partial mastectomy S/P removal of ovarian cyst Family History Mother , Kidney Disease Kidney disease Father Old age Social History (Updated 10/30/20 @ 15:18 by LEÓN Caro) Smoking Status: Never smoker Hx Alcohol Use: No Hx Substance Use: No Preferred Language: Norwegian Communication Ability: Impaired Beliefs That Will Affect Care: None marital status: Current Living Situation: Spouse Feels Safe at Home: Yes Assistive Devices: Brace/Splint/Immobilizer, Denture - Upper and Walker Review of Systems Review of Systems: Unobtainable due to cognitive status Physical Exam Constitutional: + thin; no acute distress Vitals as above Eyes: PERRL, conjunctivae normal, anicteric sclerae ENMT: external ear and nose normal, oropharynx normal Respiratory: normal respiratory effort, lungs clear to auscultation Cardiovascular: Rate/Rhythm: regular rate and regular rhythm Vessels: normal peripheral pulses Extremities: no edema Gastrointestinal (Abdomen): normal bowel sounds, soft, nontender, no hepatosplenomegaly Musculoskeletal: Extremities: no cyanosis and no clubbing Does not follow commands to evaluate strength, grimaces when RLE is moved Skin: no rashes, warm and dry Neurologic: PERRL, EOMI, accommodation nl, no face palsy, no dysarthria Psychiatric: Sleeping, arouses to verbal stimuli, does not follow commands Results & Data Results & Data ([facility]) Vital Signs (Past 12 Hours) Vital Signs Temp Pulse Pulse Resp BP BP Pulse Ox 10/30/20 14:00 59 L 20 134/77 97 10/30/20 12:31 98 10/30/20 11:51 36.7 C 59 L 20 134/60 99 Laboratory Results Short CBC 10/30/20 Range/Units 12:24 WBC 5.57 (4.8-10.8) K/uL Hgb 13.9 (12.0-16.0) g/dL Hct 40.7 (37-47) % Plt Count 172 (130-400) K/uL BMP 10/30/20 12:24 Sodium 143 Potassium 3.3 L Chloride 108 H Carbon Dioxide 26 BUN 25 H Creatinine 0.93 Glucose 129 H Calcium 8.4 L Cardiac Enzymes 10/30/20 Range/Units 12:24 Troponin I < 0.015 (0-0.045) ng/ml Liver Function 10/30/20 Range/Units 12:24 Total Bilirubin 0.7 (0.2-1) mg/dl AST 32 (15-37) U/L ALT 35 (12-78) U/L Alkaline Phosphatase 90 (45-117) U/L Albumin 3.6 (3.4-5.0) gm/dl Diagnostic Findings CT C-SPINE IMPRESSION: No evidence of acute fracture or traumatic subluxation. CXR IMPRESSION: No active disease in the chest. HEAD CT IMPRESSION: No significant change compared to the prior study. No acute intracranial abnormality. HIP/PELVIS XR IMPRESSION: 1. Intertrochanteric fracture within the proximal right femur. No dislocation. 2. Focal cortical irregularity along the superior aspect of the left femoral neck. A left hip fracture is considered less likely but not entirely excluded. Dedicated left hip radiograph is recommended for further evaluation. LEFT HIP X-RAY IMPRESSION: 1. Slight foreshortening of the femoral neck on the AP view, but no evidence of fracture on the lateral view. If symptoms persist, an MRI could be obtained to exclude an occult fracture. Code Status & VTE Plan Code Status Patient is a full code as per my discussion with patient's via telephone. VTE Prophylaxis Plan VTE Prophylaxis will be ordered: Yes Supervising Physician Co-Signing Physician Notes Attending addendum: The patient was seen and examined in emergency room She was admitted with a history of fall and fracture of right hip She has dementia minimally conversant She is complaining of some pain in the right hip but otherwise noted to have no acute distress On examination Minimal distress secondary to right hip pain Afebrile and hemodynamically stable Chest-decreased breath sounds both sides especially at the bases Heart-S1-S2, regular. No murmur appreciated Abdomen-soft, nontender, bowel sounds present Extremities-trace edema bilaterally Any movement of the right lower extremity produced pain in the right hip. Similar but less pain on movement noted on the left side [employer]IL WR[employer]PER-alert and awake. Has dementia and pleasantly confused Her admission labs, EKG and imaging studies reviewed Has closed nondisplaced fracture of the right hip with history of dementia and mechanical fall COVID-19 infection-asymptomatic Orthopedic surgeon consulted Reviewed assessment plan as outlined above by Ifrah Zapata (1) Closed hip fracture Encounter type: initial encounter Laterality: right Qualified Code(s): S72.001A - Fracture of unspecified part of neck of right femur, initial encounter for closed fracture
--- NOTE | 2020-10-30 16:05 | Anesthesiology Consultation ---
Date of Service October 30, 2020 Assessment & Plan (1) Encounter for pre-operative examination: Chart Review Chart Review: Acceptable Risk for Surgery and Patient NOT seen in Pre Admission Testing Consults Requested none Additional Notes 80 yo female s/p unwitnessed fall with left hip fracture. PMH is significant for dementia, CKD stage III, HTN, and patient tested COVID positive on admission. Patient is full code and consent will need to be obtained from patient's next of kin in the morning, Franco Villagomez, her , at [phone]. History Surgery Operation Date: 10/31/20 07:00 Proposed Procedures p Right Long Troch Nail, - Franco Fuentes MD s Left Possible Pinning - Franco Fuentes MD Height/Weight Weight: 49.4 kg Allergies Allergy/AdvReac Type Severity Reaction Status Date / Time Sulfa (Sulfonamide Allergy Mild Unknown Unverified 10/30/20 13:53 Antibiotics) lactose AdvReac Intermediate GI Unverified 10/30/20 13:53 intolerance Medications Home Medications Medication Instructions Recorded Confirmed Last Taken amlodipine 10 mg PO DAILY 04/06/19 10/30/20 05/27/19 atorvastatin 10 mg PO HS 04/06/19 10/30/20 05/27/19 famotidine 20 mg PO BID 10/30/20 10/30/20 Unknown mirtazapine 15 mg PO HS 10/30/20 10/30/20 Unknown olanzapine 5 mg PO HS 10/30/20 10/30/20 Unknown trazodone 50 mg PO HS 10/30/20 10/30/20 Unknown Past Medical History Medical History Breast cancer DCIS s/p lumpectomy, s/p radiation CKD (chronic kidney disease), stage III Dementia Fracture, patella GERD (gastroesophageal reflux disease) HLD (hyperlipidemia) Hypertension IBS (irritable bowel syndrome) Lactose intolerance Osteoarthritis Osteoporosis Exercise / Class Metabolic Activity III < 4 Walking/Shop/Light housework (per [facility] report) Past Family History Family History Mother , Kidney Disease Kidney disease Father Old age Past Surgical History Surgical History H/O colonoscopy "03/15/2015- normal" H/O cystoscopy History of tubal ligation Hx of tonsillectomy S/P appendectomy S/P partial mastectomy S/P removal of ovarian cyst Social History Smoking Status: Never smoker Hx Alcohol Use: No Alcohol type: wine alcohol intake frequency: holidays/special occasions only Hx Substance Use: No substance use type: does not use Physical Exam Vital Signs Last Vital Signs Temp 36.8 C 10/30/20 17:20 Pulse 65 10/30/20 17:20 Resp 16 10/30/20 17:20 BP 149/65 H 10/30/20 17:20 Pulse Ox 98 10/30/20 18:36 Testing Laboratory Results 10/30/20 12:24 10/30/20 12:24 PT 10.8 Seconds (9.0-12.0) 10/30/20 12:24 INR 1.0 (0.9-1.1) 10/30/20 12:24 Urine Color Yellow 10/30/20 Unknown Urine Appearance Clear (Clear) 10/30/20 Unknown Urine pH 6.5 (4.5-7.5) 10/30/20 Unknown Ur Specific [place] 1.016 (1.000-1.030) 10/30/20 Unknown Urine Protein Negative (Negative) 10/30/20 Unknown Urine Glucose (UA) Negative (Negative) 10/30/20 Unknown Urine Ketones Negative (Negative) 10/30/20 Unknown Urine Nitrite Negative (Negative) 10/30/20 Unknown Ur Leukocyte Esterase Negative (Negative) 10/30/20 Unknown Electrocardiogram Date: 10/30/20 Findings: + SB @ (58) when compared to ECG of 03/30/2020, PACs are no longer present. Chest X-Ray Date: 10/30/20 Findings: + NAD Other Testing Hip/pelvic Xray 10/30/2020 1. Intertrochanteric fracture within the proximal right femur. No dislocation. 2. Focal cortical irregularity along the superior aspect of the left femoral neck. A left hip fracture is considered less likely but not entirely excluded. Dedicated left hip radiograph is recommended for further evaluation.
[2020-10-30] MEDS ORDERED: ONDANSETRON INJ 2 MG/ML 2 ML VIAL IV PRN (17:20)
[2020-10-30] MEDS ORDERED: ACETAMINOPHEN 325 MG TAB PO PRN (17:20)
[2020-10-30] MEDS ORDERED: bisacodyL 10 MG SUPP PR PRN (17:20)
[2020-10-30] MEDS ORDERED: POTASSIUM CHLORIDE CRTAB 20 MEQ TABCR PO STA (17:20)
[2020-10-30] MEDS ORDERED: NALOXONE HCL 0.4 MG/1 ML VIAL/CARP IV PRN (17:20)
--- NOTE | 2020-10-30 18:39 | Electrocardiogram Report ---
Test Reason : Blood Pressure : / mmHG Vent. Rate : 058 BPM Atrial Rate : 058 BPM P-R Int : 152 ms QRS Dur : 070 ms QT Int : 446 ms P-R-T Axes : 079 053 078 degrees QTc Int : 437 ms Poor data quality, interpretation may be adversely affected Sinus bradycardia Otherwise normal ECG When compared with ECG of 30-MAR-2020 15:24, Premature atrial complexes are no longer Present Confirmed by Horacio Virk ([id number]) on 10/30/2020 6:38:47 PM Referred By: Confirmed By:Abisai Virk
[2020-10-30 20:25] LABS: Appearance Urine Clear (Clear); Bilirubin Urine Negative (Negative); Blood Urine Negative (Negative); Color Urine Yellow; Glucose Urine UA Negative (Negative); Ketones Urine Negative (Negative); Leukocyte Esterase Urine Negative (Negative); Nitrite Urine Negative (Negative); Protein Urine Negative (Negative); Specific Gravity Urine 1.016 (1.000-1.030); Urobilinogen Urine Negative (Negative); pH Urine 6.5 (4.5-7.5)
[2020-10-30] MEDS: traZODone HCL 50 MG TAB PO SCH (21:31)
[2020-10-30] MEDS: MIRTAZAPINE TAB 15 MG TAB PO SCH (21:31)
[2020-10-30] MEDS: ATORVASTATIN 10 MG TAB PO SCH (21:31)
[2020-10-30] MEDS: OLANZapine ZYDIS 5 MG ORALLY DIS. TAB PO SCH (21:31)
[2020-10-30] MEDS: FAMOTIDINE 20 MG TAB PO SCH (21:31)
[2020-10-30] MEDS: DOCUSATE SODIUM/SENNA 50/8.6MG TAB PO SCH (21:31)
[2020-10-30] MEDS: HEPARIN SOD 5,000 UNIT/0.5 ML VIAL SQ SCH (21:32)
[2020-10-31] MEDS: MoRPHine SULFATE 2 MG/ML CARP IV PRN ×2 (01:37→23:29)
[2020-10-31] MEDS: HEPARIN SOD 5,000 UNIT/0.5 ML VIAL SQ SCH (05:37)
--- NOTE | 2020-10-31 07:34 | Magnetic Resonance Report ---
MR hip LT wo con HISTORY: 80 years-old Female pain, ? fracture acute left-sided hip pain with clinical concern for oc cult fracture. COMPARISON: Pelvis and left hip radiograph of same day TECHNIQUE: Multiplanar multisequence MRI of the left hip was obtained without the use of IV contrast. FINDINGS: Craft Recruiter localizer images demonstrate no gross abnormality of the pelvis. Barry catheter is noted within a decompressed urinary bladder. The fundal endometrium measures the up per limits of normal at 4 mm. Probable nabothian cyst of the cervix, 4 mm. Trace free fluid within th e dependent pelvis. There is an acute slightly impacted intertrochanteric fracture of the right femur. There is associate d small to moderate hemarthroses with considerable amount of hemorrhage and reactive edema in the adj acent soft tissues which extends into the iliopsoas and medial musculature of the upper thigh. No dis location. There is mild to moderate osteoarthritis of the bilateral hips. No dislocation or avascular necrosis. Fraying and irregularity suggestive of degeneration with chronic tears of the bilateral la bra. No acute fracture, dislocation or bone marrow edema of the left hip. Moderate degeneration of th e pubic symphysis. No pubic ring fracture identified. Mild enthesitis of the gluteal attachment sites at the left greater trochanter. Trace left hip joint effusion. IMPRESSION: 1. Acute mildly impacted intertrochanteric fracture of the right femur with small to moderate hemarth roses. Considerable amount of hemorrhage with reactive edema surrounds the right hip and extends into the abductor musculature of the right upper thigh. 2. No acute fracture or dislocation of the left hip. 3. Mild to moderate bilateral hip osteoarthritis. ACT 112: Negative or not required by law. The above report was generated using voice recognition software. It may contain grammatical, syntax o r spelling errors. Electronically signed by: Kevin Marshall M.D. 10/31/2020 7:32 AM
[2020-10-31] MEDS ORDERED: BUPIVACAINE 0.5 % 5 MG/1 ML PF 10ML VIAL ONE (07:41)
--- NOTE | 2020-10-31 07:49 | Orthopedic Consultation ---
Date of Consultation October 31, 2020 Assessment & Plan (1) Closed hip fracture: 80-year-old female with pretty severe underlying dementia as well as a recent positive Covid test with a right displaced intertrochanteric hip fracture. There was questionable concern of left hip fracture but the MRI rules that out. After extensive thought and discussion with the patient's we did elect to proceed with IM nailing of the right hip fracture. The risks med this procedure explained to the patient as well as the and he understands. He is the power of business attorney. They would like to proceed. He is discussed this with the rest of his family as well. Present on Admission?: Yes History of Present Illness Reason for Consultation: Fall with hip fracture. Attending Physician: Claudia Arellano MD History of Present Illness Patient is an 80-year-old female with fairly severe dementia from the [facility] dementia unit in [place] who was found on the floor in the bathroom yesterday morning. She had an unwitnessed fall. She is normally an ambulator but unable to ambulate afterwards. She is brought to the emergency room where x-rays with a right intertrochanteric hip fracture. There was concern about a left hip fracture as well. Patient was admitted were consulted for evaluation and treatment. She is an independent ambulator previously. She has severe dementia. Allergies Allergy/AdvReac Type Severity Reaction Status Date / Time Sulfa (Sulfonamide Allergy Mild Unknown Unverified 10/30/20 13:53 Antibiotics) lactose AdvReac Intermediate GI Unverified 10/30/20 13:53 intolerance Home Medications Medication Instructions Recorded Confirmed Type amlodipine 10 mg PO DAILY 04/06/19 10/30/20 History atorvastatin 10 mg PO HS 04/06/19 10/30/20 History famotidine 20 mg PO BID 10/30/20 10/30/20 History mirtazapine 15 mg PO HS 10/30/20 10/30/20 History olanzapine 5 mg PO HS 10/30/20 10/30/20 History trazodone 50 mg PO HS 10/30/20 10/30/20 History Patient History Medical History Breast cancer DCIS s/p lumpectomy, s/p radiation CKD (chronic kidney disease), stage III Dementia Fracture, patella GERD (gastroesophageal reflux disease) HLD (hyperlipidemia) Hypertension IBS (irritable bowel syndrome) Lactose intolerance Osteoarthritis Osteoporosis Surgical History H/O colonoscopy "03/15/2015- normal" H/O cystoscopy History of tubal ligation Hx of tonsillectomy S/P appendectomy S/P partial mastectomy S/P removal of ovarian cyst Family History Mother , Kidney Disease Kidney disease Father Old age Social History Smoking Status: Unknown if ever smoked Hx Alcohol Use: No (Pt demented, unable to answer) Hx Substance Use: No (Pt demented, unable to answer) Preferred Language: Serbian Communication Ability: Impaired Asphalt Worker Required: No Beliefs That Will Affect Care: None marital status: Current Living Situation: Care Home Other Information That Helps Us Care for You: No Feels Safe at Home: Yes Assistive Devices: Walker Review of Systems Review of Systems: All systems reviewed & are unremarkable except as noted in HPI & below Physical Exam Physical Exam: Physical examination reveals a demented thin cachectic elderly female is lying in bed. She really cannot follow commands. She looks relatively comfortable. Examination of the right lower extremity reveals a very thin soft tissue envelope. There is no bruising or swelling. Her right leg is slightly shortened and slightly externally rotated. She does have significant pain with any type of hip motion. There is no knee effusion. She spontaneously moves her foot back and forth. Examination of left hip and leg reveals no obvious deformity. She does have some underlying spasticity. No apparent or obvious pain with hip motion. Results & Data ([facility]) Vital Signs (Past 12 Hours) Vital Signs Temp Pulse Resp BP Pulse Ox 10/30/20 22:49 36.9 C 63 16 152/71 H 98 Diagnostic Findings X-rays of the pelvis as well as both hips reveal a right displaced intertrochanteric hip fracture. Diffuse osteopenia. Some mild underlying arthritis. X-rays of the left hip reveal a question of an impacted valgus femoral neck fracture on the AP. On the lateral film there is no obvious deformity. Fairly mild arthritis. MRI of the left hip was reviewed. It shows the right intertrochanteric hip fracture. There is no signs of left hip fracture. PG Care Time/CCT Total # of Minutes Spent Total Time Spent with Patient: Total time spent is greater than 50% in coordination of care (as documented) at patient's floor/unit and/or counseling patient: Coding Level of Care Code 07357 Inpt Consult Level 4 Diagnoses Closed hip fracture S72.001A Encounter type: initial encounter Laterality: right (1) Closed hip fracture Encounter type: initial encounter Laterality: right Qualified Code(s): S72.001A - Fracture of unspecified part of neck of right femur, initial encounter for closed fracture
--- NOTE | 2020-10-31 07:50 | History & Physical Bridge Note ---
Date of Service October 31, 2020 History & Physical Bridge Note I have examined the patient, reviewed the History & Physical and in the interval since the performance of the History & Physical I have noted the following changes of clinical significance: no changes noted
[2020-10-31] MEDS ORDERED: fentaNYL citrate 100 MCG/2 ML VIAL ONE (08:01)
[2020-10-31] MEDS ORDERED: MIDAZOLAM HCL 1 MG/ML 2ML VIAL ONE (08:01)
[2020-10-31] MEDS ORDERED: PROPOFOL IV EMULSION 10 MG/ML 20 ML VIAL IV ONE (08:01)
[2020-10-31] MEDS ORDERED: LIDOCAINE HCL 2% 2 ML VIAL/AMP(20MG/ML) INFIL ONE (08:01)
[2020-10-31] MEDS ORDERED: KETAMINE 50 MG/5 ML SYRINGE ONE (08:11)
[2020-10-31 08:20] LABS: Hematocrit (blood only) 41.2 % (37-47); Hemoglobin 13.6 g/dL (12.0-16.0); Mean Corpuscular Hemoglobin 32.3 pg (25-34); Mean Corpuscular Volume 97.9 fL (80-100); Mean Platelet Volume 11.9 fL (7.4-10.4); Platelet Count 191 K/uL (130-400); RDW Coefficient of Variation 13.1 % (11.5-14.5); RDW Standard Deviation 47.3 fL (36.4-46.3); Red Blood Count 4.21 M/uL (4.2-5.4); White Blood Count 5.69 K/uL (4.8-10.8)
[2020-10-31 08:46] LABS: BUN Creatinine Ratio 34.8 (10-20); Blood Urea Nitrogen 31 mg/dl (7-18); Calcium 8.6 mg/dl (8.5-10.1); Carbon Dioxide 25 mmol/L (21-32); Chloride 112 mmol/L (98-107); Est GFR (African American) 70.9; Est GFR (Non-African American) 61.2; Glucose 116 mg/dl (70-99); Potassium 3.7 mmol/L (3.5-5.1); Sodium 146 mmol/L (136-145)
[2020-10-31] MEDS ORDERED: BUPIVACAINE/EPINEPHRINE 0.5% MPF 1:200,000 30 ML VIAL ONE (09:30)
[2020-10-31] MEDS: ceFAZolin 2000MG 2,000 MG/15 ML SYR IV SCH ×2 (10:05→10:25)
[2020-10-31] MEDS ORDERED: ePHEDrine sulfate 50 MG/ML AMP IV PRN (10:51)
[2020-10-31] MEDS ORDERED: ATROPINE SULFATE 0.1 MG/ML 10ML SYR IV PRN (10:51)
[2020-10-31] MEDS ORDERED: ONDANSETRON INJ 2 MG/ML 2 ML VIAL IV PRN (10:51)
[2020-10-31] MEDS ORDERED: fentaNYL citrate 100 MCG/2 ML VIAL IV PRN (10:51)
[2020-10-31] MEDS: amLODIPine BESYLATE 5 MG TAB PO SCH (10:55)
[2020-10-31] MEDS: FAMOTIDINE 20 MG TAB PO SCH ×2 (10:55→20:31)
--- NOTE | 2020-10-31 11:24 | Fluoroscopy Report ---
FL hip RT 2-3V CLINICAL HISTORY: RT LONG TROCH NAIL COMPARISON STUDY: Pelvis and right hip radiographs October 30, 2020. FLUOROSCOPY TIME: 1 minute and 1 second. FLUOROSCOPIC IMAGES: 4 FINDINGS: Fluoroscopy was provided during internal fixation of the intertrochanteric fracture of the right femur with trochanteric nail. Fracture alignment has significantly improved and appears near an atomic. There is a distal screw. Hardware is intact. There are no unexpected radiopaque foreign chelsie s. IMPRESSION: Fluoroscopy provided during internal fixation of the intertrochanteric fracture of the r ight femur. ACT 112: Negative or not required by law. Electronically signed by: Freddy Valencia M.D. 10/31/2020 11:22 AM
--- NOTE | 2020-10-31 11:25 | Post Operative Brief Note ---
PG Immediate Post Op with CF Date of Surgery October 31, 2020 Pre & Post Diagnosis Operation Date: 10/31/20 07:00 Pre-Op Diagnosis: RIGHT INTERTROCHANTERIC HIP FRACTURE Post-Op Diagnosis: RIGHT INTERTROCHANTERIC HIP FRACTURE I identified the patient and participated in the time-out.: Yes Procedure Operation Date: 10/31/20 07:00 Actual Procedures p Right Long Troch Nail,(Right) - Franco Fuentes MD s Left Possible Pinning - Franco Fuentes MD Surgeon Franco Fuentes MD Truck Driver Helper ESTUARDO Maurice Estimated Blood Loss 20 Findings Consistent with Post-Op Diagnosis Fluids 300 cc Specimens Specimen Description: none Anesthesia Type Spinal MAC Complications none Disposition Accompanied Patient To Recovery: No Disposition: Recovery Room
--- NOTE | 2020-10-31 11:31 | Operative Report ---
Post Operative Report Pre & Post Diagnosis Operation Date: 10/31/20 07:00 Pre-Op Diagnosis: RIGHT INTERTROCHANTERIC HIP FRACTURE Post-Op Diagnosis: RIGHT INTERTROCHANTERIC HIP FRACTURE I identified the patient and participated in the time-out.: Yes Procedure Operation Date: 10/31/20 07:00 Actual Procedures p Right Long Troch Nail,(Right) - Franco Fuentes MD s Left Possible Pinning - Franco Fuentes MD Surgeon Franco Fuentes MD Separating Machine Operator ESTUARDO Maurice Estimated Blood Loss 20 Findings Consistent with Post-Op Diagnosis Specimens None. Anesthesia Type Spinal MAC Disposition Accompanied Patient To Recovery: No Disposition: Recovery Room Indications Patient is an 80-year-old female with fairly severe advanced dementia who sustained an unwitnessed fall yesterday. She was found to bathroom floor. She brought the emergency room x-rays with a right intertrochanteric hip fracture. There was concern for a left hip fracture but an MRI was performed and there is no signs of hip pathology on that side. The patient is medically optimized indicated for surgical stabilization of the right hip fracture. Description of Procedure Operative implants consist of: 1. Synthes right 340 x 10 mm long trochanteric nail. 2. Synthes 85 mm helical blade. 3. 5 mm x 48 mm of distal interlocking screw. The patient was taken to the operating identified and placed on the operating t able supine position but all contact areas were properly padded. IV antibiotics tried by anesthesia team and spinal anesthetic was implemented by the anesthesia team. The patient was then placed on the fracture table. The right leg was placed in boot traction the left leg was placed in a well leg tubbs. I applied some longitudinal traction to the right leg and internally rotated the foot so t he kneecap pointed the ceiling. X-ray was brought in and the fracture was anatomically reduced. The right hip and leg were then scrubbed with a Hibiclens and then prepped with ChloraPrep and draped in the usual sterile fashion. A slightly curvilinear incision was made just proximal to the greater trochanter of the right hip. Sharp dissection was got through subcutaneous this down the gluteal fascia. The gluteal fascia was incised longitudinally in line with skin incision. A guidewire was then placed just lateral to the tip of the trochanter advanced down the IM canal both the AP and lateral fluoroscopic views. The large reamer was then used to over ream the wire once position was verified. The wire was then removed and a ball-tipped guidewire was placed. I need to measured for nail length at 340 mm nail was selected. I then reamed beginning with a size 9 mm reamer progressing up to 11 and after we got some fairly mild to moderate chatter at 11 and half so we elected to place a 10 mm nail. A 10 mm x 3 and 40 mm right long trochanteric nail was then placed over the guidewire and tapped in position. The guidewire was removed. The lateral aiming arm was attached. A stab incision was made in the lateral aiming arm was advanced to the lateral aspect the femur. A guidewire was placed in the central aspect of the femoral head neck in both AP and lateral planes. This was measured and 85 mm helical blade was selected. The cortical step drill was used to breach the cortex and then 85 mm triple reamer was used to ream up the femoral neck. A 85 mm helical blade was placed and tapped into position. The proximal setscrew was tightened. The lateral aiming arm was removed and some final x-rays were obtained. Attention drawn toward distal interlocking. Using the perfect [place] technique, a distal interlocking screw was placed. I first drilled with a 4.0 mm drill and then placed a 48 mm x 5mm interlocking hole in the dynamic position. Was final x-rays were obtained. Attention drawn toward closing. The wounds were irrigated with copious amounts of normal saline. I did inject locally with 30 cc of half percent Marcaine with epinephrine. The gluteal fascia then closed with 0 Vicryl suture in running fashion for subcutaneous tissue of all wounds were then closed with a 2-0 Dexon suture in a buried interrupted fashion skin was closed skin may. Leg was then cleaned dried a sterile dressing composed of Xeroform, 4 x 4's, ABD pad, foam tape was applied. The patient then taken off the fracture table and transported to the recovery room in stable condition. Patient tolerated the procedure well and there were no complications. Loyd Maurice, my physician surgical supply assistant, was present for the entire procedure. His assistance was required for proper patient positioning, placement of the fracture table, prepping and draping, surgical exposure, retraction, placement of the implants, performing the technical aspects of the operation, closure of the wound, and placement of the sterile bandage. I attest to the content of the Intraoperative Record and any orders documented therein. Any exceptions are noted below.
[2020-10-31] MEDS ORDERED: NALOXONE HCL 0.4 MG/1 ML VIAL/CARP IV PRN (12:09)
--- NOTE | 2020-10-31 12:47 | Anesthesiology Progress Note ---
Date of Service October 31, 2020 Anesthesia Post Procedure Vital Signs Vital Signs: Temp Pulse Pulse Pulse Pulse Resp BP 10/31/20 12:28 36.7 C 79 18 10/31/20 12:00 36.8 C 71 14 10/31/20 11:45 81 17 10/31/20 11:35 37.3 C 78 18 10/31/20 11:25 75 18 10/31/20 11:18 36.1 C L 85 17 10/31/20 07:47 37.3 C 75 16 10/30/20 22:49 36.9 C 63 16 10/30/20 18:36 10/30/20 17:20 36.8 C 65 16 10/30/20 16:58 63 23 144/69 H 10/30/20 16:42 63 23 144/69 H 10/30/20 16:00 62 16 152/81 H 10/30/20 14:00 59 L 20 BP Pulse Ox Pulse Ox 10/31/20 12:28 153/72 H 96 10/31/20 12:00 144/76 H 96 10/31/20 11:45 142/83 H 96 10/31/20 11:35 144/70 H 96 10/31/20 11:25 149/68 H 96 10/31/20 11:18 131/60 97 10/31/20 07:47 162/70 H 92 10/30/20 22:49 152/71 H 98 10/30/20 18:36 98 10/30/20 17:20 149/65 H 98 10/30/20 16:58 97 10/30/20 16:42 97 10/30/20 16:00 97 10/30/20 14:00 134/77 97 Pain Intensity Right Leg: Pain Intensity: 2 Transfer of Care Handoff Completed per policy Notes Mental Status: alert / awake / arousable Patient Amnestic to Procedure: Yes Nausea / Vomiting: adequately controlled Pain: adequately controlled Airway Patency, RR, SpO2: stable & adequate BP & HR: stable & adequate Hydration State: stable & adequate Neuraxial Anesthesia: was administered and sensory block is resolving Anesthetic Complications: no major complications apparent
--- NOTE | 2020-10-31 13:09 | Hospitalist Progress Note ---
Date of Service October 31, 2020 Assessment & Plan (1) Closed hip fracture: Right intertrochanteric hip fracture CT head negative Status post right long troch nail this morning Monitor recovery. May advance diet as tolerated when awake Pain control Will need PT/OT (2) COVID-19: Saturating well on room air, no signs of pneumonia on CXR Covid specific therapies at this time (3) Hypertension: Continue amlodipine (4) CKD (chronic kidney disease), stage III: Baseline creatinine runs in the low 1's Renal function at baseline (5) Dementia: Continue home medications (6) DVT prophylaxis: Hold heparin subcu today due to surgery today Admission and Anticipated Discharge Date Admission Date: October 30, 2020 Subjective Patient seen and examined the return from OR Patient sleeping Withdraws from noxious stimuli RN spoke with NH, patient reported to be independent with ADL at baseline but needs cueing. Also usually alert and would attempt conversation but mostly scrambled words Review of Systems Review of Systems: Drowsy and just returned from OR Physical Exam Constitutional: + thin Elderly woman sleeping Eyes: Sleeping ENMT: External ear and nose normal Respiratory: normal respiratory effort, lungs clear to auscultation Cardiovascular: Rate/Rhythm: regular rate and regular rhythm S1 and S2 Gastrointestinal (Abdomen): normal bowel sounds, soft, nontender, no hepatosplenomegaly Musculoskeletal: Clean dressing over right hip No pedal edema Neurologic: Somnolent Withdraws from noxious stimuli Results & Data Results & Data ([facility]) Vital Signs (Past 12 Hours) Vital Signs Temp Pulse Pulse Pulse Resp BP Pulse Ox 10/31/20 12:28 36.7 C 79 18 153/72 H 96 10/31/20 12:00 36.8 C 71 14 144/76 H 96 10/31/20 11:45 81 17 142/83 H 96 10/31/20 11:35 37.3 C 78 18 144/70 H 96 10/31/20 11:25 75 18 149/68 H 96 10/31/20 11:18 36.1 C L 85 17 131/60 97 10/31/20 07:47 37.3 C 75 16 162/70 H 92 Laboratory Results Laboratory Results - last 24 hr 10/30/20 10/30/20 10/30/20 12:24 20:52 Unknown WBC RBC Hgb Hct MCV MCH MCHC RDW Std Deviation RDW Coeff of Cedric Plt Count MPV Sodium Potassium Chloride Carbon Dioxide Anion Gap BUN Creatinine Est Cr Clr Drug Dosing Est GFR ( Amer) Est GFR (Non-Af Amer) BUN/Creatinine Ratio Glucose Calcium 25-OH Vitamin D Total 30.7 Urine Color Urine Appearance Urine pH Ur Specific [place] Urine Protein Urine Glucose (UA) Urine Ketones Urine Blood Urine Nitrite Urine Bilirubin Urine Urobilinogen Ur Leukocyte Esterase Nasal Screen MRSA (PCR) Negative Blood Type O Negative Antibody Screen NEGATIVE 10/30/20 10/31/20 10/31/20 Unknown 06:41 06:41 WBC 5.69 RBC 4.21 Hgb 13.6 Hct 41.2 MCV 97.9 MCH 32.3 MCHC 33.0 RDW Std Deviation 47.3 H RDW Coeff of Cedric 13.1 Plt Count 191 MPV 11.9 H Sodium 146 H Potassium 3.7 Chloride 112 H Carbon Dioxide 25 Anion Gap 9.0 BUN 31 H Creatinine 0.89 Est Cr Clr Drug Dosing Not Reportable Est GFR ( Amer) 70.9 Est GFR (Non-Af Amer) 61.2 BUN/Creatinine Ratio 34.8 H Glucose 116 H Calcium 8.6 25-OH Vitamin D Total Urine Color Yellow Urine Appearance Clear Urine pH 6.5 Ur Specific [place] 1.016 Urine Protein Negative Urine Glucose (UA) Negative Urine Ketones Negative Urine Blood Negative Urine Nitrite Negative Urine Bilirubin Negative Urine Urobilinogen Negative Ur Leukocyte Esterase Negative Nasal Screen MRSA (PCR) Blood Type Antibody Screen (1) Closed hip fracture Encounter type: initial encounter Laterality: right Qualified Code(s): S72.001A - Fracture of unspecified part of neck of right femur, initial encounter for closed fracture
[2020-10-31] MEDS: D5W AND 1/2NSS 1,000 ML IV SCH (20:24)
[2020-10-31] MEDS: DOCUSATE SODIUM/SENNA 50/8.6MG TAB PO SCH (20:31)
[2020-10-31] MEDS: ATORVASTATIN 10 MG TAB PO SCH (20:31)
[2020-10-31] MEDS: OLANZapine ZYDIS 5 MG ORALLY DIS. TAB PO SCH (20:31)
[2020-10-31] MEDS: MIRTAZAPINE TAB 15 MG TAB PO SCH (20:31)
[2020-10-31] MEDS: traZODone HCL 50 MG TAB PO SCH (20:31)
[2020-10-31] MEDS: ASPIRIN 81 MG ECTAB PO SCH (20:32)
[2020-11-01 07:10] LABS: Basophils # (auto) 0.01 K/uL (0-0.2); Basophils % (auto) 0.1 %; Hemoglobin 12.1 g/dL (12.0-16.0); Immature Granulocytes # (auto) 0.01 K/uL (0.00-0.02); Immature Granulocytes % (auto) 0.1 %; Lymphocytes % (auto) 9.9 %; Mean Corpuscular Hemoglobin 32.7 pg (25-34); Mean Corpuscular Hgb Conc 32.7 g/dL (32-36); Mean Platelet Volume 11.4 fL (7.4-10.4); Monocytes # (auto) 0.73 K/uL (0.11-0.59); Monocytes % (auto) 10.4 %; Neutrophils # (auto) 5.59 K/uL (1.4-6.5); Neutrophils % (auto) 79.5 %; Platelet Count 151 K/uL (130-400); RDW Coefficient of Variation 13.4 % (11.5-14.5); RDW Standard Deviation 48.6 fL (36.4-46.3); White Blood Count 7.04 K/uL (4.8-10.8)
[2020-11-01 07:39] LABS: BUN Creatinine Ratio 37.2 (10-20); Blood Urea Nitrogen 34 mg/dl (7-18); Calcium 8.4 mg/dl (8.5-10.1); Carbon Dioxide 29 mmol/L (21-32); Chloride 109 mmol/L (98-107); Est GFR (African American) 69.1; Est GFR (Non-African American) 59.6; Glucose 155 mg/dl (70-99); Sodium 141 mmol/L (136-145)
[2020-11-01] MEDS: FAMOTIDINE 20 MG TAB PO SCH ×2 (08:43→22:24)
[2020-11-01] MEDS: ASPIRIN 81 MG ECTAB PO SCH ×2 (08:43→22:24)
[2020-11-01] MEDS: amLODIPine BESYLATE 5 MG TAB PO SCH (08:43)
--- NOTE | 2020-11-01 08:50 | Progress Notes ---
DATE: 11/01/2020 SUBJECTIVE: An 80-year-old female postop day 1 from IM nailing of a right intertrochanteric fracture. Surgery went well. There were no complications. She is postop day 1. Severe dementia with a minimal subjective reliable feedback. OBJECTIVE: VITAL SIGNS: Temperature 36.8. Vital signs stable. GENERAL: Is deferred as patient is in the COVID unit. LABORATORY DATA: Hemoglobin is 12.1. Hematocrit 37.0. White cell count 7.04. Electrolytes are stable. ASSESSMENT: An 80-year-old female with pretty severe underlying dementia postop day 1 from IM nailing of a right intertrochanteric fracture. Everything appears stable. PLAN: 1. DVT prophylaxis including thigh-high TEDs, SCDs, and we would recommend a baby aspirin twice a day. This patient is a very high fall risk and having more aggressive anticoagulation increases risk of bleeding in other problems. 2. PT/OT. She can fully weightbear as tolerated in right lower extremity. 3. Medical management as per the medicine service. 4. Disposition: She is orthopedically okay for discharge any time. She just needs routine wound care. I need to see her back in 2-3 weeks out from surgery date. Any orthopedic questions can be directed to me at [phone].
[2020-11-01] MEDS: D5W AND 1/2NSS 1,000 ML IV SCH (12:08)
--- NOTE | 2020-11-01 14:07 | Hospitalist Progress Note ---
Date of Service November 01, 2020 Assessment & Plan (1) Closed hip fracture: Right intertrochanteric hip fracture s/p fall CT head negative/CT C-spine negative. Status post right long troch nail on 10/[address] Fuentes. She is recovering on the floor and hemodynamically stable with ice in place as tolerated. Scheduled APAP now. Additional pain control as needed PT/OT and activity restrictions per orthopedics. DVT proph per orthopedics. (2) COVID-19: Saturating well on room air, no signs of pneumonia on CXR No Covid specific therapies indicated at this time. Cont current isolation. (3) Hypertension: Slightly elevated, poss 2/2 uncontrolled pain, ?delirium. Scheduled APAP per plan above. Continue amlodipine (4) CKD (chronic kidney disease), stage III: Renal function at baseline, cont to avoid nephrotoxic substances and renally dose medications as appropriate. (5) Dementia: currently somnolent but will awaken and appears to be at baseline mental status. Difficult to tell if delirium may be present. Will give scheduled APAP to treat underlying pain and try to avoid narcotics. Will also empirically treat ?nausea. Cont home medications as tolerating PO, which she is currently too somnolent to tolerate PO regularly. Cont to reorient as needed. (6) DVT prophylaxis: ASA 81mg PO BID Full Code Dispo-uncertain at this time. Laine Ahmadi DO [facility] Hospitalist Admission and Anticipated Discharge Date Admission Date: October 30, 2020 Subjective 80 yo F admitted for R hip fracture, COVID positive -dementia patient who appears to be somewhat at her baseline mental status -she is able to open her eyes and mumble unintelligible sounds at me today -she doesn't appears in any acute distress but is somnolent -she is unable to give and ROS 2/2 dementia Review of Systems Review of Systems: Unobtainable due to mental health condition (dementia) Physical Exam Physical Exam: CONSTITUTIONAL: elderly, frail, vitals as above, NAD, somnolent EYES: pupils are round and equal bilaterally, normal conjunctivae, no scleral icterus ENT: external ear and nose normal RESPIRATORY: clear to auscultation bilaterally, no crackles, rales or wheezes, normal respiratory effort CARDIOVASCULAR: regular rate and rhythm, S1 and 2 heard without murmurs, gallops or rubs, no JVD, no peripheral edema GASTROINTESTINAL: soft, nontender, nondistended, no guarding MUSCULOSKELETAL: strength intact although limited exam, she is resisting examination, head is normocephalic and atraumatic, leg strength not examined and post op site is covered SKIN: warm and dry NEUROLOGIC: somnolent, doesn't appear focal Results & Data Results & Data ([facility]) Vital Signs (Past 12 Hours) Vital Signs Temp Pulse Resp BP Pulse Ox 11/01/20 12:12 36.8 C 86 18 157/71 H 94 11/01/20 07:54 37.4 C 72 18 149/70 H 96 11/01/20 03:41 36.8 C 69 16 131/72 94 Laboratory Results Short CBC 11/01/20 Range/Units 06:20 WBC 7.04 (4.8-10.8) K/uL Hgb 12.1 (12.0-16.0) g/dL Hct 37.0 (37-47) % Plt Count 151 (130-400) K/uL BMP 11/01/20 06:20 Sodium 141 Potassium 4.0 Chloride 109 H Carbon Dioxide 29 BUN 34 H Creatinine 0.91 Glucose 155 H Calcium 8.4 L Medications Administered Current Inpatient Medications Acetaminophen (Acetaminophen 325 Mg Tab) 650 mg PO Q4H PRN PRN Reason: pain/fever Stop: 11/29/20 17:19 Amlodipine Besylate (Amlodipine Besylate 5 Mg Tab) 10 mg PO DAILY DARREN Stop: 11/30/20 08:59 Last Admin: 11/01/20 08:43 Dose: 10 mg Documented by: Aspirin (Aspirin 81 Mg Ectab) 81 mg PO BID DARREN Stop: 11/30/20 20:59 Last Admin: 11/01/20 08:43 Dose: 81 mg Documented by: Atorvastatin Calcium (Atorvastatin 10 Mg Tab) 10 mg PO HS DARREN Stop: 11/29/20 20:59 Last Admin: 10/31/20 20:31 Dose: Not Given Documented by: Bisacodyl (Bisacodyl 10 Mg Supp) 10 mg [place] DAILY PRN PRN Reason: Constipation Stop: 11/29/20 17:19 Famotidine (Famotidine 20 Mg Tab) 20 mg PO BID DARREN Stop: 11/29/20 20:59 Last Admin: 11/01/20 08:43 Dose: 20 mg Documented by: Dextrose/Sodium Chloride (D5w And 1/2nss) 1,000 mls @ 60 mls/hr IV .[id number] [facility] Stop: 11/30/20 18:44 Last Admin: 11/01/20 12:08 Dose: 60 mls/hr Documented by: Magnesium Hydroxide (Magnesium Hydroxide Susp 30 Ml Udc) 30 ml PO DAILY PRN PRN Reason: Constipation Stop: 11/29/20 17:19 Mirtazapine (Mirtazapine Tab 15 Mg Tab) 15 mg PO [facility] Stop: 11/29/20 20:59 Last Admin: 10/31/20 20:31 Dose: Not Given Documented by: Morphine Sulfate (Morphine Sulfate 2 Mg/Ml Carp) 2 mg IV Q3H PRN PRN Reason: Pain (1,2,3,4,5) & Pre PT Stop: 11/13/20 17:19 Last Admin: 10/31/20 23:29 Dose: 2 mg Documented by: Naloxone HCl (Naloxone Hcl 0.4 Mg/1 Ml Vial/Carp) 0.1 mg IV UD PRN PRN Reason: Opiate Overdose Stop: 11/29/20 17:19 Naloxone HCl (Naloxone Hcl 0.4 Mg/1 Ml Vial/Carp) 0.1 mg IV UD PRN PRN Reason: Opioid Overdose Stop: 11/30/20 12:08 Olanzapine (Olanzapine Zydis 5 Mg Orally Dis. Tab) 5 mg PO [facility] Stop: 11/29/20 20:59 Last Admin: 10/31/20 20:31 Dose: Not Given Documented by: Ondansetron HCl (Ondansetron Inj 2 Mg/Ml 2 Ml Vial) 4 mg IV Q6H PRN PRN Reason: Nausea And Vomiting Stop: 11/29/20 17:19 Senna/Docusate Sodium (Docusate Sodium/Senna 50/8.6mg Tab) 2 tab PO [facility] Stop: 11/29/20 20:59 Last Admin: 10/31/20 20:31 Dose: Not Given Documented by: Trazodone HCl (Trazodone Hcl 50 Mg Tab) 50 mg PO [facility] Stop: 11/29/20 20:59 Last Admin: 10/31/20 20:31 Dose: Not Given Documented by: (1) Closed hip fracture Encounter type: initial encounter Laterality: right Qualified Code(s): S72.001A - Fracture of unspecified part of neck of right femur, initial encounter for closed fracture
[2020-11-01] MEDS ORDERED: ONDANSETRON INJ 2 MG/ML 2 ML VIAL IV ONE (14:11)
[2020-11-01] MEDS: ACETAMINOPHEN 1,000 MG/100 ML VIAL IV SCH ×2 (14:25→22:18)
[2020-11-01] MEDS: MoRPHine SULFATE 2 MG/ML CARP IV PRN (16:36)
[2020-11-01] MEDS: MIRTAZAPINE TAB 15 MG TAB PO SCH (22:16)
[2020-11-01] MEDS: OLANZapine ZYDIS 5 MG ORALLY DIS. TAB PO SCH (22:17)
[2020-11-01] MEDS: traZODone HCL 50 MG TAB PO SCH (22:17)
[2020-11-01] MEDS: ATORVASTATIN 10 MG TAB PO SCH (22:24)
[2020-11-01] MEDS: DOCUSATE SODIUM/SENNA 50/8.6MG TAB PO SCH (22:25)
[2020-11-02] MEDS: MoRPHine SULFATE 2 MG/ML CARP IV PRN ×3 (04:02→23:27)
[2020-11-02] MEDS: ACETAMINOPHEN 1,000 MG/100 ML VIAL IV SCH ×3 (05:12→21:52)
[2020-11-02] MEDS: D5W AND 1/2NSS 1,000 ML IV SCH (05:12)
[2020-11-02] MEDS: amLODIPine BESYLATE 5 MG TAB PO SCH ×2 (08:36→08:41)
[2020-11-02] MEDS: ASPIRIN 81 MG ECTAB PO SCH ×3 (08:36→20:39)
[2020-11-02] MEDS: FAMOTIDINE 20 MG TAB PO SCH ×3 (08:36→20:40)
--- NOTE | 2020-11-02 10:37 | Progress Notes ---
DATE: 11/02/2020 SUBJECTIVE: An 80-year-old female postop day 2 from IM nailing of a right intertroch fracture. She has got severe dementia. OBJECTIVE: VITAL SIGNS: Temperature 36.8. Vital signs stable. GENERAL: Shows a thin, cachectic elderly female. She is lying in bed, looks reasonably comfortable. She really does not follow much in the way of commands. EXTREMITIES: Examination of the right hip and leg reveals the dressing to be clean, dry and intact. Thigh is soft and supple. Her leg lengths are equal. She spontaneously moves both feet, but not necessarily on command. LABORATORY DATA: No new labs. ASSESSMENT: An 80-year-old female with severe underlying dementia, postoperative day 2 from intramedullary nailing of a right intertrochanteric fracture. Orthopedically, she is doing reasonably well. No signs of problems. Hemoglobin and hematocrit are stable. PLAN: 1. DVT prophylaxis including thigh-high TEDs, SCDs, and we would recommend a baby aspirin twice a day for the next 4-6 weeks. 2. PT/OT. She can fully weightbear on this right leg. 3. Medical management as per the medicine service. 4. Disposition: She is orthopedically okay for discharge at any time medically stable. I need to see her back in 2-3 weeks from the surgery date. Any orthopedic questions can be directed to me at [phone]. I am going to sign off for now as I do not think examining her any more at this point is likely beneficial. If there are any questions or concerns or need for me to look at her, just call me on the above cell phone.
--- NOTE | 2020-11-02 16:49 | Hospitalist Progress Note ---
Date of Service November 02, 2020 Assessment & Plan (1) Closed hip fracture: Right intertrochanteric hip fracture s/p fall CT head negative/CT C-spine negative. Status post right long troch nail on 10/[address] Fuentes. She is recovering on the floor and hemodynamically stable with ice in place as tolerated. Scheduled APAP and some time has appeared to perk her up and she appears to be mentating at her stated baseline. Additional pain control as needed PT/OT and activity restrictions per orthopedics. DVT proph per orthopedics. (2) COVID-19: Saturating well on room air, no signs of pneumonia on CXR No Covid specific therapies indicated at this time. Cont current isolation. (3) Hypertension: At goal, cont Tylenol for consistent pain control. Scheduled APAP per plan above. Continue amlodipine (4) CKD (chronic kidney disease), stage III: Renal function at baseline, cont to avoid nephrotoxic substances and renally dose medications as appropriate. (5) Dementia: back to baseline mental status. Awake and talking unintelligibly to noone in particular. Appears more animated today. Moving all extremities except the right leg well. Monitor for delirium, reorient as necessary (6) DVT prophylaxis: ASA 81mg PO BID Full Code Dispo-uncertain at this time. Laine Ahmadi DO [facility] Hospitalist Admission and Anticipated Discharge Date Admission Date: October 30, 2020 Subjective 80 yo F admitted for R hip fracture, COVID positive -dementia patient who appears to be somewhat at her baseline mental status -she is able to open her eyes and mumble unintelligible sounds at me today -she doesn't appears in any acute distress Review of Systems Review of Systems: Unobtainable due to mental health condition (dementia) Physical Exam Physical Exam: CONSTITUTIONAL: elderly, frail, vitals as above, NAD, somnolent EYES: pupils are round and equal bilaterally, normal conjunctivae, no scleral icterus ENT: external ear and nose normal RESPIRATORY: clear to auscultation bilaterally, no crackles, rales or wheezes, normal respiratory effort CARDIOVASCULAR: regular rate and rhythm, S1 and 2 heard without murmurs, gallops or rubs, no JVD, no peripheral edema GASTROINTESTINAL: soft, nontender, nondistended, no guarding MUSCULOSKELETAL: strength intact although limited exam, she is resisting examination, head is normocephalic and atraumatic, leg strength not examined and post op site is covered SKIN: warm and dry NEUROLOGIC: moving all extremities equally, CN 2-12 grossly intact. PSYCH: mumbling to herself, ?hallucinating about people not in the room. Unable to follow instructions. Results & Data Results & Data ([facility]) Vital Signs (Past 12 Hours) Vital Signs Temp Pulse Resp BP Pulse Ox Pulse Ox 11/02/20 15:45 98 11/02/20 15:25 36.7 C 65 16 121/54 L 98 11/02/20 07:02 36.8 C 62 16 115/54 L 97 Medications Administered Current Inpatient Medications Amlodipine Besylate (Amlodipine Besylate 5 Mg Tab) 10 mg PO DAILY DARREN Stop: 11/30/20 08:59 Last Admin: 11/02/20 08:41 Dose: Not Given Documented by: Aspirin (Aspirin 81 Mg Ectab) 81 mg PO BID DARREN Stop: 11/30/20 20:59 Last Admin: 11/02/20 08:41 Dose: Not Given Documented by: Atorvastatin Calcium (Atorvastatin 10 Mg Tab) 10 mg PO HS DARREN Stop: 11/29/20 20:59 Last Admin: 11/01/20 22:24 Dose: 10 mg Documented by: Bisacodyl (Bisacodyl 10 Mg Supp) 10 mg [place] DAILY PRN PRN Reason: Constipation Stop: 11/29/20 17:19 Famotidine (Famotidine 20 Mg Tab) 20 mg PO BID DARREN Stop: 11/29/20 20:59 Last Admin: 11/02/20 08:41 Dose: Not Given Documented by: Dextrose/Sodium Chloride (D5w And 1/2nss) 1,000 mls @ 60 mls/hr IV .[id number] DARREN Stop: 11/30/20 18:44 Last Admin: 11/02/20 05:12 Dose: 60 mls/hr Documented by: Acetaminophen (Ofirmev) 1,000 mg in 100 mls @ 400 mls/hr IV Q8H DARREN Stop: 11/04/20 14:29 Last Infusion: 11/02/20 14:31 Dose: Infused Documented by: Magnesium Hydroxide (Magnesium Hydroxide Susp 30 Ml Udc) 30 ml PO DAILY PRN PRN Reason: Constipation Stop: 11/29/20 17:19 Mirtazapine (Mirtazapine Tab 15 Mg Tab) 15 mg PO [facility] Stop: 11/29/20 20:59 Last Admin: 11/01/20 22:16 Dose: 15 mg Documented by: Morphine Sulfate (Morphine Sulfate 2 Mg/Ml Carp) 2 mg IV Q3H PRN PRN Reason: Pain (1,2,3,4,5) & Pre PT Stop: 11/13/20 17:19 Last Admin: 11/02/20 16:49 Dose: 2 mg Documented by: Naloxone HCl (Naloxone Hcl 0.4 Mg/1 Ml Vial/Carp) 0.1 mg IV UD PRN PRN Reason: Opiate Overdose Stop: 11/29/20 17:19 Naloxone HCl (Naloxone Hcl 0.4 Mg/1 Ml Vial/Carp) 0.1 mg IV UD PRN PRN Reason: Opioid Overdose Stop: 11/30/20 12:08 Olanzapine (Olanzapine Zydis 5 Mg Orally Dis. Tab) 5 mg PO [facility] Stop: 11/29/20 20:59 Last Admin: 11/01/20 22:17 Dose: 5 mg Documented by: Ondansetron HCl (Ondansetron Inj 2 Mg/Ml 2 Ml Vial) 4 mg IV Q6H PRN PRN Reason: Nausea And Vomiting Stop: 11/29/20 17:19 Senna/Docusate Sodium (Docusate Sodium/Senna 50/8.6mg Tab) 2 tab PO [facility] Stop: 11/29/20 20:59 Last Admin: 11/01/20 22:25 Dose: 2 tab Documented by: Trazodone HCl (Trazodone Hcl 50 Mg Tab) 50 mg PO [facility] Stop: 11/29/20 20:59 Last Admin: 11/01/20 22:17 Dose: 50 mg Documented by: (1) Closed hip fracture Encounter type: initial encounter Laterality: right Qualified Code(s): S72.001A - Fracture of unspecified part of neck of right femur, initial encounter for closed fracture
[2020-11-02] MEDS: traZODone HCL 50 MG TAB PO SCH (20:39)
[2020-11-02] MEDS: MIRTAZAPINE TAB 15 MG TAB PO SCH (20:40)
[2020-11-02] MEDS: ATORVASTATIN 10 MG TAB PO SCH (20:40)
[2020-11-02] MEDS: DOCUSATE SODIUM/SENNA 50/8.6MG TAB PO SCH (20:40)
[2020-11-02] MEDS: OLANZapine ZYDIS 5 MG ORALLY DIS. TAB PO SCH (20:41)
[2020-11-03] MEDS: ACETAMINOPHEN 1,000 MG/100 ML VIAL IV SCH ×3 (05:42→22:00)
[2020-11-03] MEDS: MoRPHine SULFATE 2 MG/ML CARP IV PRN (06:02)
[2020-11-03] MEDS: FAMOTIDINE 20 MG TAB PO SCH ×2 (10:13→21:12)
[2020-11-03] MEDS: amLODIPine BESYLATE 5 MG TAB PO SCH (10:13)
[2020-11-03] MEDS: ASPIRIN 81 MG ECTAB PO SCH ×2 (10:13→21:12)
--- NOTE | 2020-11-03 11:58 | Hospitalist Progress Note ---
Date of Service November 03, 2020 Assessment & Plan (1) Closed hip fracture: Initial CT head negative/CT C-spine negative after traumatic fall. Right intertrochanteric hip fracture s/p fall, POD#3 She is recovering on the floor and hemodynamically stable. She is oxygenating well on room air and is at her baseline mental status. Cont scheduled Tylenol for today Additional pain control as needed. Cont to work with PT and OT with placement planned for after this holiday weekend Nurses changing surgical dressing daily or as needed. (2) COVID-19: Saturating well on room air, no signs of pneumonia on CXR No Covid specific therapies indicated at this time. Cont current isolation. (3) Hypertension: At goal, cont Tylenol for consistent pain control. Scheduled APAP per plan above. Continue amlodipine (4) CKD (chronic kidney disease), stage III: Renal function at baseline, cont to avoid nephrotoxic substances and renally dose medications as appropriate. (5) Dementia: back to baseline mental status. Awake and talking unintelligibly to noone in particular. Appears more animated today. Moving all extremities except the right leg well. Monitor for delirium, reorient as necessary (6) DVT prophylaxis: ASA 81mg PO BID Full Code Dispo-uncertain at this time. Likely DC to SNF. Laine Ahmadi DO [facility] Hospitalist Admission and Anticipated Discharge Date Admission Date: October 30, 2020 Subjective 80 yo F admitted for R hip fracture, COVID positive,s/p R trochanteric nail, POD #3 -dementia patient who appears to be somewhat at her baseline mental status, somnolent today after receiving morphine for agitation -urinary retention overnight 550cc and she was straight cath'd -tolerating PO Review of Systems Review of Systems: All systems reviewed & are unremarkable except as noted in Subjective Physical Exam Physical Exam: CONSTITUTIONAL: elderly, frail, vitals as above, NAD, somnolent EYES: pupils are round and equal bilaterally, normal conjunctivae, no scleral icterus ENT: external ear and nose normal RESPIRATORY: clear to auscultation bilaterally, no crackles, rales or wheezes, normal respiratory effort CARDIOVASCULAR: regular rate and rhythm, S1 and 2 heard without murmurs, gallops or rubs, no JVD, no peripheral edema GASTROINTESTINAL: soft, nontender, nondistended, no guarding MUSCULOSKELETAL: strength intact although limited exam, moves all extremities equally, head is normocephalic and atraumatic, leg strength not examined and post op site is covered SKIN: warm and dry NEUROLOGIC: moving all extremities equally, CN 2-12 grossly intact. PSYCH: mumbles to herself, Unable to follow instructions. Results & Data Results & Data ([facility]) Vital Signs (Past 12 Hours) Vital Signs Temp Pulse Resp BP Pulse Ox 11/03/20 08:18 37.1 C 70 18 113/71 96 11/02/20 23:55 37.3 C 70 18 136/74 96 Medications Administered Current Inpatient Medications Amlodipine Besylate (Amlodipine Besylate 5 Mg Tab) 10 mg PO DAILY DARREN Stop: 11/30/20 08:59 Last Admin: 11/03/20 10:13 Dose: 10 mg Documented by: Aspirin (Aspirin 81 Mg Ectab) 81 mg PO BID DARREN Stop: 11/30/20 20:59 Last Admin: 11/03/20 10:13 Dose: 81 mg Documented by: Atorvastatin Calcium (Atorvastatin 10 Mg Tab) 10 mg PO HS DARREN Stop: 11/29/20 20:59 Last Admin: 11/02/20 20:40 Dose: Not Given Documented by: Bisacodyl (Bisacodyl 10 Mg Supp) 10 mg [place] DAILY PRN PRN Reason: Constipation Stop: 11/29/20 17:19 Famotidine (Famotidine 20 Mg Tab) 20 mg PO BID DARREN Stop: 11/29/20 20:59 Last Admin: 11/03/20 10:13 Dose: 20 mg Documented by: Acetaminophen (Ofirmev) 1,000 mg in 100 mls @ 400 mls/hr IV Q8H DARREN Stop: 11/04/20 14:29 Last Infusion: 11/03/20 05:57 Dose: Infused Documented by: Magnesium Hydroxide (Magnesium Hydroxide Susp 30 Ml Udc) 30 ml PO DAILY PRN PRN Reason: Constipation Stop: 11/29/20 17:19 Mirtazapine (Mirtazapine Tab 15 Mg Tab) 15 mg PO HS [facility] Stop: 11/29/20 20:59 Last Admin: 11/02/20 20:40 Dose: Not Given Documented by: Morphine Sulfate (Morphine Sulfate 2 Mg/Ml Carp) 2 mg IV Q3H PRN PRN Reason: Pain (1,2,3,4,5) & Pre PT Stop: 11/13/20 17:19 Last Admin: 11/03/20 06:02 Dose: 2 mg Documented by: Naloxone HCl (Naloxone Hcl 0.4 Mg/1 Ml Vial/Carp) 0.1 mg IV UD PRN PRN Reason: Opiate Overdose Stop: 11/29/20 17:19 Naloxone HCl (Naloxone Hcl 0.4 Mg/1 Ml Vial/Carp) 0.1 mg IV UD PRN PRN Reason: Opioid Overdose Stop: 11/30/20 12:08 Olanzapine (Olanzapine Zydis 5 Mg Orally Dis. Tab) 5 mg PO HS DARREN Stop: 11/29/20 20:59 Last Admin: 11/02/20 20:41 Dose: Not Given Documented by: Ondansetron HCl (Ondansetron Inj 2 Mg/Ml 2 Ml Vial) 4 mg IV Q6H PRN PRN Reason: Nausea And Vomiting Stop: 11/29/20 17:19 Senna/Docusate Sodium (Docusate Sodium/Senna 50/8.6mg Tab) 2 tab PO [facility] Stop: 11/29/20 20:59 Last Admin: 11/02/20 20:40 Dose: Not Given Documented by: Trazodone HCl (Trazodone Hcl 50 Mg Tab) 50 mg PO HS DARREN Stop: 11/29/20 20:59 Last Admin: 11/02/20 20:39 Dose: Not Given Documented by: (1) Closed hip fracture Encounter type: initial encounter Laterality: right Qualified Code(s): S72.001A - Fracture of unspecified part of neck of right femur, initial encounter for closed fracture
[2020-11-03] MEDS: MIRTAZAPINE TAB 15 MG TAB PO SCH (21:12)
[2020-11-03] MEDS: OLANZapine ZYDIS 5 MG ORALLY DIS. TAB PO SCH (21:13)
[2020-11-03] MEDS: traZODone HCL 50 MG TAB PO SCH (21:13)
[2020-11-03] MEDS: DOCUSATE SODIUM/SENNA 50/8.6MG TAB PO SCH (21:13)
[2020-11-03] MEDS: ATORVASTATIN 10 MG TAB PO SCH (21:13)
[2020-11-04] MEDS: ACETAMINOPHEN 1,000 MG/100 ML VIAL IV SCH (06:03)
[2020-11-04] MEDS: FAMOTIDINE 20 MG TAB PO SCH ×2 (08:48→20:31)
[2020-11-04] MEDS: amLODIPine BESYLATE 5 MG TAB PO SCH (08:48)
[2020-11-04] MEDS: ASPIRIN 81 MG ECTAB PO SCH ×2 (08:48→20:32)
[2020-11-04] MEDS: MoRPHine SULFATE 2 MG/ML CARP IV PRN (12:25)
--- NOTE | 2020-11-04 13:17 | Hospitalist Progress Note ---
Date of Service November 04, 2020 Assessment & Plan (1) Closed hip fracture: Initial CT head negative/CT C-spine negative after traumatic fall. Right intertrochanteric hip fracture s/p fall, POD#4 She is recovering on the floor and hemodynamically stable. She is oxygenating well on room air and is at her baseline mental status. PT IS SOMNOLENT SO CHANGE SCHEDULED TYLENOL TO PRN Additional pain control as needed. Cont to work with PT and OT with placement planned for after this holiday we ekend Nurses changing surgical dressing daily or as needed. (2) COVID-19: Saturating well on room air, no signs of pneumonia on CXR No Covid specific therapies indicated at this time. Cont current isolation. (3) Hypertension: At goal, cont Tylenol for consistent pain control. Scheduled APAP per plan above. Continue amlodipine (4) CKD (chronic kidney disease), stage III: Renal function at baseline, cont to avoid nephrotoxic substances and renally dose medications as appropriate. (5) Dementia: back to baseline mental status. somnolent today likley a result of the tylenol which was changed. Monitor for delirium, reorient as necessary (6) DVT prophylaxis: ASA 81mg PO BID Full Code Dispo-uncertain at this time. Likely DC to SNF. Laine Ahmadi DO [facility] Hospitalist Admission and Anticipated Discharge Date Admission Date: October 30, 2020 Subjective 80 yo F admitted for R hip fracture, COVID positive,s/p R trochanteric nail, POD #3 -dementia patient who is somnolent and less responsive to me today -ROS unable to be obtained as a result. Review of Systems Review of Systems: Unobtainable due to mental health condition (dementia) Physical Exam Physical Exam: CONSTITUTIONAL: elderly, frail, vitals as above, NAD, somnolent EYES: normal conjunctivae, no scleral icterus ENT: external ear and nose normal, MMM RESPIRATORY: clear to auscultation bilaterally, no crackles, rales or wheezes, normal respiratory effort CARDIOVASCULAR: regular rate and rhythm, S1 and 2 heard without murmurs, gallops or rubs, no JVD, no peripheral edema GASTROINTESTINAL: soft, nontender, nondistended, no guarding MUSCULOSKELETAL: somnolent, no testing or observations performed, wound site covered with clean and dry and intact dressing. SKIN: warm and dry NEUROLOGIC: somnolent Results & Data Results & Data ([facility]) Vital Signs (Past 12 Hours) Vital Signs Temp Pulse Resp BP Pulse Ox Pulse Ox 11/04/20 07:50 93 11/04/20 07:18 36.9 C 70 16 144/66 H 93 Medications Administered Current Inpatient Medications Amlodipine Besylate (Amlodipine Besylate 5 Mg Tab) 10 mg PO DAILY DARREN Stop: 11/30/20 08:59 Last Admin: 11/04/20 08:48 Dose: 10 mg Documented by: Aspirin (Aspirin 81 Mg Ectab) 81 mg PO BID [facility] Stop: 11/30/20 20:59 Last Admin: 11/04/20 08:48 Dose: 81 mg Documented by: Atorvastatin Calcium (Atorvastatin 10 Mg Tab) 10 mg PO HS [facility] Stop: 11/29/20 20:59 Last Admin: 11/03/20 21:13 Dose: 10 mg Documented by: Bisacodyl (Bisacodyl 10 Mg Supp) 10 mg [place] DAILY PRN PRN Reason: Constipation Stop: 11/29/20 17:19 Famotidine (Famotidine 20 Mg Tab) 20 mg PO BID [facility] Stop: 11/29/20 20:59 Last Admin: 11/04/20 08:48 Dose: 20 mg Documented by: Acetaminophen (Ofirmev) 1,000 mg in 100 mls @ 400 mls/hr IV Q8H [facility] Stop: 11/04/20 14:29 Last Infusion: 11/04/20 06:28 Dose: Infused Documented by: Magnesium Hydroxide (Magnesium Hydroxide Susp 30 Ml Udc) 30 ml PO DAILY PRN PRN Reason: Constipation Stop: 11/29/20 17:19 Mirtazapine (Mirtazapine Tab 15 Mg Tab) 15 mg PO HS [facility] Stop: 11/29/20 20:59 Last Admin: 11/03/20 21:12 Dose: 15 mg Documented by: Morphine Sulfate (Morphine Sulfate 2 Mg/Ml Carp) 2 mg IV Q3H PRN PRN Reason: Pain (1,2,3,4,5) & Pre PT Stop: 11/13/20 17:19 Last Admin: 11/04/20 12:25 Dose: 2 mg Documented by: Naloxone HCl (Naloxone Hcl 0.4 Mg/1 Ml Vial/Carp) 0.1 mg IV UD PRN PRN Reason: Opiate Overdose Stop: 11/29/20 17:19 Naloxone HCl (Naloxone Hcl 0.4 Mg/1 Ml Vial/Carp) 0.1 mg IV UD PRN PRN Reason: Opioid Overdose Stop: 11/30/20 12:08 Olanzapine (Olanzapine Zydis 5 Mg Orally Dis. Tab) 5 mg PO [facility] Stop: 11/29/20 20:59 Last Admin: 11/03/20 21:13 Dose: 5 mg Documented by: Ondansetron HCl (Ondansetron Inj 2 Mg/Ml 2 Ml Vial) 4 mg IV Q6H PRN PRN Reason: Nausea And Vomiting Stop: 11/29/20 17:19 Senna/Docusate Sodium (Docusate Sodium/Senna 50/8.6mg Tab) 2 tab PO [facility] Stop: 11/29/20 20:59 Last Admin: 11/03/20 21:13 Dose: 2 tab Documented by: Trazodone HCl (Trazodone Hcl 50 Mg Tab) 50 mg PO [facility] Stop: 11/29/20 20:59 Last Admin: 11/03/20 21:13 Dose: 50 mg Documented by: (1) Closed hip fracture Encounter type: initial encounter Laterality: right Qualified Code(s): S72.001A - Fracture of unspecified part of neck of right femur, initial encounter for closed fracture
[2020-11-04] MEDS: DOCUSATE SODIUM/SENNA 50/8.6MG TAB PO SCH (20:30)
[2020-11-04] MEDS: MIRTAZAPINE TAB 15 MG TAB PO SCH (20:30)
[2020-11-04] MEDS: ATORVASTATIN 10 MG TAB PO SCH (20:31)
[2020-11-04] MEDS: traZODone HCL 50 MG TAB PO SCH (20:31)
[2020-11-04] MEDS: OLANZapine ZYDIS 5 MG ORALLY DIS. TAB PO SCH (20:31)
[2020-11-04] MEDS ORDERED: ACETAMINOPHEN 325 MG TAB PO PRN (23:27)
[2020-11-05] MEDS: MAGNESIUM HYDROXIDE SUSP 30 ML UDC PO PRN (06:21)
[2020-11-05 06:39] LABS: Hemoglobin 12.3 g/dL (12.0-16.0); Mean Corpuscular Hemoglobin 32.8 pg (25-34); Mean Corpuscular Hgb Conc 33.2 g/dL (32-36); Mean Corpuscular Volume 98.7 fL (80-100); Mean Platelet Volume 10.5 fL (7.4-10.4); Platelet Count 294 K/uL (130-400); RDW Coefficient of Variation 13.2 % (11.5-14.5); Red Blood Count 3.75 M/uL (4.2-5.4); White Blood Count 7.67 K/uL (4.8-10.8)
[2020-11-05 07:02] LABS: BUN Creatinine Ratio 49.5 (10-20); Blood Urea Nitrogen 37 mg/dl (7-18); Calcium 8.9 mg/dl (8.5-10.1); Carbon Dioxide 27 mmol/L (21-32); Chloride 111 mmol/L (98-107); Est GFR (African American) 87.3; Est GFR (Non-African American) 75.3; Glucose 109 mg/dl (70-99); Sodium 144 mmol/L (136-145)
[2020-11-05] MEDS: FAMOTIDINE 20 MG TAB PO SCH (08:54)
[2020-11-05] MEDS: amLODIPine BESYLATE 5 MG TAB PO SCH (08:54)
[2020-11-05] MEDS: ASPIRIN 81 MG ECTAB PO SCH ×3 (08:55→21:37)
--- NOTE | 2020-11-05 09:46 | XRay Report ---
XR chest 1V portable HISTORY: Shortness of breath. COVID, rule out pna COMPARISON: Chest 10/30/2020. FINDINGS: The lungs are hyperexpanded with mild apical predominant emphysematous changes. No pleural effusions. No pneumothorax. No focal lung consolidations to suggest pneumonia. The heart is normal in size. IMPRESSION: No acute process. ACT 112: Negative or not required by law. Electronically signed by: Francois Morel M.D. 11/05/2020 9:45 AM
--- NOTE | 2020-11-05 17:20 | Hospitalist Progress Note ---
Date of Service November 05, 2020 Assessment & Plan (1) Closed hip fracture: Initial CT head negative/CT C-spine negative after traumatic fall. Right intertrochanteric hip fracture s/p fall, POD#5 She is oxygenating well on room air and is at her baseline mental status. PT IS SOMNOLENT SO CHANGE SCHEDULED TYLENOL TO PRN--no improvement so changing her back to scheduled Tylenol today Additional pain control as needed. Cont to work with PT and OT with placement planned for after this holiday weekend Nurses changing surgical dressing daily or as needed. Aspirin for DVT prophylaxis (2) COVID-19: Saturating well on room air, no signs of pneumonia on CXR which was repeating today No Covid specific therapies indicated at this time. Cont current isolation. Of note CRP is elevated, but hard to say if this is from recent surgery vs covid activity vs other. Considered steroid administration, however, this may cause profound delirium in someone with end stage dementia. She may also be delirious now, and this may worsen the current situation. Would hold off on this until she becomes hypoxic or doesn't improve. (3) Hypertension: At goal, cont Tylenol for consistent pain control. Scheduled APAP per plan above. Continue amlodipine (4) CKD (chronic kidney disease), stage III: Renal function at baseline, cont to avoid nephrotoxic substances and renally dose medications as appropriate. (5) Dementia: back to baseline mental status. persistently somnolent. CRP was elevated so COVID activity may be increased. Monitor for delirium, reorient as necessary (6) DVT prophylaxis: ASA 81mg PO BID Full Code Dispo-uncertain at this time. Likely DC to SNF, however, she needs to improve mentally and start eating again first prior to going anywhere. Laine Ahmadi DO [facility] Hospitalist Admission and Anticipated Discharge Date Admission Date: October 30, 2020 Subjective 80 yo F admitted for R hip fracture, COVID positive,s/p R trochanteric nail, POD #5 -dementia patient who is somnolent and less responsive to me today -ROS unable to be obtained as a result. -updated her by phone -she is not eating much per nursing and is incontinent of urine -starting scheduled APAP and empiric Zofran Review of Systems Review of Systems: All systems reviewed & are unremarkable except as noted in Subjective Physical Exam Physical Exam: CONSTITUTIONAL: elderly, frail, vitals as above, NAD, somnolent EYES: normal conjunctivae, no scleral icterus ENT: external ear and nose normal, MMM RESPIRATORY: clear to auscultation bilaterally, no crackles, rales or wheezes, normal respiratory effort CARDIOVASCULAR: regular rate and rhythm, S1 and 2 heard without murmurs, gallops or rubs, no JVD, no peripheral edema GASTROINTESTINAL: soft, nontender, nondistended, no guarding MUSCULOSKELETAL: somnolent, no testing or observations performed, wound site covered with clean and dry and intact dressing. SKIN: warm and dry NEUROLOGIC: somnolent Results & Data Results & Data ([facility]) Vital Signs (Past 12 Hours) Vital Signs Temp Pulse Resp BP Pulse Ox Pulse Ox 11/05/20 14:48 37.5 C 74 16 152/67 H 97 11/05/20 07:55 97 11/05/20 07:19 36.7 C 65 16 160/75 H 96 Laboratory Results Short CBC 11/05/20 Range/Units 06:00 WBC 7.67 (4.8-10.8) K/uL Hgb 12.3 (12.0-16.0) g/dL Hct 37.0 (37-47) % Plt Count 294 (130-400) K/uL BMP 11/05/20 06:00 Sodium 144 Potassium 4.0 Chloride 111 H Carbon Dioxide 27 BUN 37 H Creatinine 0.75 Glucose 109 H Calcium 8.9 Medications Administered Current Inpatient Medications Amlodipine Besylate (Amlodipine Besylate 5 Mg Tab) 10 mg PO DAILY DARREN Stop: 11/30/20 08:59 Last Admin: 11/05/20 08:54 Dose: 10 mg Documented by: Aspirin (Aspirin 81 Mg Ectab) 81 mg PO BID DARREN Stop: 11/30/20 20:59 Last Admin: 11/05/20 08:55 Dose: 81 mg Documented by: Atorvastatin Calcium (Atorvastatin 10 Mg Tab) 10 mg PO HS DARREN Stop: 11/29/20 20:59 Last Admin: 11/04/20 20:31 Dose: 10 mg Documented by: Bisacodyl (Bisacodyl 10 Mg Supp) 10 mg [place] DAILY PRN PRN Reason: Constipation Stop: 11/29/20 17:19 Famotidine (Famotidine 20 Mg Tab) 20 mg PO BID DARREN Stop: 11/29/20 20:59 Last Admin: 11/05/20 08:54 Dose: 20 mg Documented by: Acetaminophen (Ofirmev) 1,000 mg in 100 mls @ 400 mls/hr IV Q8H [facility]ARREN Stop: 11/08/20 15:59 Magnesium Hydroxide (Magnesium Hydroxide Susp 30 Ml Udc) 30 ml PO DAILY PRN PRN Reason: Constipation Stop: 11/29/20 17:19 Last Admin: 11/05/20 06:21 Dose: 30 ml Documented by: Mirtazapine (Mirtazapine Tab 15 Mg Tab) 15 mg PO HS DARREN Stop: 11/29/20 20:59 Last Admin: 11/04/20 20:30 Dose: 15 mg Documented by: Naloxone HCl (Naloxone Hcl 0.4 Mg/1 Ml Vial/Carp) 0.1 mg IV UD PRN PRN Reason: Opiate Overdose Stop: 11/29/20 17:19 Naloxone HCl (Naloxone Hcl 0.4 Mg/1 Ml Vial/Carp) 0.1 mg IV UD PRN PRN Reason: Opioid Overdose Stop: 11/30/20 12:08 Olanzapine (Olanzapine Zydis 5 Mg Orally Dis. Tab) 5 mg PO HS [facility] Stop: 11/29/20 20:59 Last Admin: 11/04/20 20:31 Dose: 5 mg Documented by: Ondansetron HCl (Ondansetron Inj 2 Mg/Ml 2 Ml Vial) 4 mg IV Q8H [facility] Stop: 11/06/20 10:01 Senna/Docusate Sodium (Docusate Sodium/Senna 50/8.6mg Tab) 2 tab PO [facility] Stop: 11/29/20 20:59 Last Admin: 11/04/20 20:30 Dose: 2 tab Documented by: Trazodone HCl (Trazodone Hcl 50 Mg Tab) 50 mg PO [facility] Stop: 11/29/20 20:59 Last Admin: 11/04/20 20:31 Dose: 50 mg Documented by: (1) Closed hip fracture Encounter type: initial encounter Laterality: right Qualified Code(s): S72.001A - Fracture of unspecified part of neck of right femur, initial encounter for closed fracture
[2020-11-05] MEDS: ACETAMINOPHEN 1,000 MG/100 ML VIAL IV SCH (17:26)
[2020-11-05] MEDS: ONDANSETRON INJ 2 MG/ML 2 ML VIAL IV SCH (17:26)
[2020-11-05 18:56] LABS: Appearance Urine Turbid (Clear); Bacteria Urine Automated 4+ (Negative); Bilirubin Urine Negative (Negative); Blood Urine Negative (Negative); Color Urine Yellow; Epithelial Cell Urine Auto 0-5 /lpf (0-5); Glucose Urine UA Negative (Negative); Ketones Urine 3+ (Negative); Leukocyte Esterase Urine 1+ (Negative); Nitrite Urine Positive (Negative); RBC Urine Automated 0-4 /hpf (0-4); Specific Gravity Urine 1.019 (1.000-1.030); Urobilinogen Urine Negative (Negative); WBC Urine Automated >30 /hpf (0-5); pH Urine >= 9.0 (4.5-7.5)
[2020-11-05 19:15] LABS: Protein Urine 2+ (Negative)
[2020-11-06] MEDS: ACETAMINOPHEN 1,000 MG/100 ML VIAL IV SCH ×3 (02:27→18:03)
[2020-11-06] MEDS: ONDANSETRON INJ 2 MG/ML 2 ML VIAL IV SCH ×2 (02:28→09:58)
[2020-11-06] MEDS: amLODIPine BESYLATE 5 MG TAB PO SCH (09:00)
[2020-11-06] MEDS: ASPIRIN 81 MG ECTAB PO SCH ×2 (09:00→20:42)
--- NOTE | 2020-11-06 11:21 | Hospitalist Progress Note ---
Date of Service November 06, 2020 Assessment & Plan (1) Acute metabolic encephalopathy: 2/2 CAUTI, monitor for improvement on antibiotics. (2) Catheter-associated urinary tract infection: Recent Barry for surgery. Rocephin started along with pyridium as tolerated. Monitor for clinical [id number] abx once culture results return. (3) Closed hip fracture: Initial CT head negative/CT C-spine negative after traumatic fall. Right intertrochanteric hip fracture s/p fall, POD#6 She is oxygenating well on room air and is at her baseline mental status. Cont scheduled Tylenol which may be improving her mental status in addition to the new antibiotics. Cont to work with PT and OT with placement planned as soon as she is eating again. Nurses changing surgical dressing daily or as needed. Aspirin for DVT prophylaxis (4) COVID-19: Saturating well on room air, no signs of pneumonia on repeat CXR No Covid specific therapies indicated at this time. Cont current isolation. Of note CRP is elevated, but hard to say if this is from recent surgery vs covid activity vs other. Considered steroid administration, however, this may cause profound delirium in someone with end stage dementia. She may also be delirious now, and this may worsen the current situation. Would hold off on this until she becomes hypoxic or doesn't improve. (5) Hypertension: At goal, cont Tylenol for consistent pain control. Scheduled APAP per plan above. Continue amlodipine (6) CKD (chronic kidney disease), stage III: Renal function at baseline, cont to avoid nephrotoxic substances and renally dose medications as appropriate. (7) Dementia: back to baseline mental status and more awake today but not reliably eating. CRP was elevated so COVID activity may be increased. Monitor for delirium which appears to be present, reorient as necessary (8) DVT prophylaxis: ASA 81mg PO BID Full Code Dispo-uncertain at this time. Poss DC to SNF in am as long as she is reliably eating and has an improved clinical disposition. was updated today by phone. DO Janie Newton Hospitalist Admission and Anticipated Discharge Date Admission Date: October 30, 2020 Subjective 80 yo F admitted for R hip fracture, COVID positive,s/p R trochanteric nail, POD #6 -more interactive today but she is reaching in her groin area and bothered -UTI present on cath sample-started Rocephin -added pyridium as patient appeared concerned with this area and may be having discomfort she is unable to vocalize -updated her by phone. Review of Systems Review of Systems: Unobtainable due to mental health condition (dementia with delirium) Physical Exam Physical Exam: CONSTITUTIONAL: elderly, frail, vitals as above, NAD,awake and confused, disoriented and not following instructions or interacting with examiner EYES: normal conjunctivae, no scleral icterus ENT: external ear and nose normal, MMM RESPIRATORY: clear to auscultation bilaterally, no crackles, rales or wheezes, normal respiratory effort CARDIOVASCULAR: regular rate and rhythm, S1 and 2 heard without murmurs, gallops or rubs, no JVD, no peripheral edema GASTROINTESTINAL: soft, nontender, nondistended, no guarding MUSCULOSKELETAL: 5/5 strength throughout generally, wound site covered with clean and dry and intact dressing. SKIN: warm and dry NEUROLOGIC: slight agitation, confusion, ?hallucination, unable to communicate, speaking unintelligible words. Results & Data Results & Data ([facility]) Vital Signs (Past 12 Hours) Vital Signs Temp Pulse Resp BP Pulse Ox Pulse Ox 11/06/20 07:44 36.8 C 62 15 151/66 H 98 11/06/20 01:37 94 Laboratory Results Urine 11/05/20 Range/Units Unknown Urine Color Yellow Urine Appearance Turbid A (Clear) Urine pH >= 9.0 H (4.5-7.5) Ur Specific [place] 1.019 (1.000-1.030) Urine Protein 2+ H (Negative) Urine Glucose (UA) Negative (Negative) Medications Administered Current Inpatient Medications Amlodipine Besylate (Amlodipine Besylate 5 Mg Tab) 10 mg PO DAILY DARREN Stop: 11/30/20 08:59 Last Admin: 11/06/20 09:00 Dose: 10 mg Documented by: Aspirin (Aspirin 81 Mg Ectab) 81 mg PO BID [facility] Stop: 11/30/20 20:59 Last Admin: 11/06/20 09:00 Dose: 81 mg Documented by: Atorvastatin Calcium (Atorvastatin 10 Mg Tab) 10 mg PO HS [facility] Stop: 11/29/20 20:59 Last Admin: 11/04/20 20:31 Dose: 10 mg Documented by: Bisacodyl (Bisacodyl 10 Mg Supp) 10 mg [place] DAILY PRN PRN Reason: Constipation Stop: 11/29/20 17:19 Famotidine (Famotidine 20 Mg Tab) 20 mg PO BID [facility] Stop: 11/29/20 20:59 Last Admin: 11/05/20 08:54 Dose: 20 mg Documented by: Acetaminophen (Ofirmev) 1,000 mg in 100 mls @ 400 mls/hr IV Q8H [facility] Stop: 11/08/20 15:59 Last Infusion: 11/06/20 10:22 Dose: Infused Documented by: Ceftriaxone Sodium 1,000 mg/ (Dextrose) 50 mls @ 100 mls/hr IV Q24H [facility]; Protocol Stop: 11/11/20 11:29 Magnesium Hydroxide (Magnesium Hydroxide Susp 30 Ml Udc) 30 ml PO DAILY PRN PRN Reason: Constipation Stop: 11/29/20 17:19 Last Admin: 11/05/20 06:21 Dose: 30 ml Documented by: Mirtazapine (Mirtazapine Tab 15 Mg Tab) 15 mg PO [facility] Stop: 11/29/20 20:59 Last Admin: 11/04/20 20:30 Dose: 15 mg Documented by: Naloxone HCl (Naloxone Hcl 0.4 Mg/1 Ml Vial/Carp) 0.1 mg IV UD PRN PRN Reason: Opiate Overdose Stop: 11/29/20 17:19 Naloxone HCl (Naloxone Hcl 0.4 Mg/1 Ml Vial/Carp) 0.1 mg IV UD PRN PRN Reason: Opioid Overdose Stop: 11/30/20 12:08 Olanzapine (Olanzapine Zydis 5 Mg Orally Dis. Tab) 5 mg PO [facility] Stop: 11/29/20 20:59 Last Admin: 11/04/20 20:31 Dose: 5 mg Documented by: Senna/Docusate Sodium (Docusate Sodium/Senna 50/8.6mg Tab) 2 tab PO [facility] Stop: 11/29/20 20:59 Last Admin: 11/04/20 20:30 Dose: 2 tab Documented by: Trazodone HCl (Trazodone Hcl 50 Mg Tab) 50 mg PO [facility] Stop: 11/29/20 20:59 Last Admin: 11/04/20 20:31 Dose: 50 mg Documented by: (1) Closed hip fracture Encounter type: initial encounter Laterality: right Qualified Code(s): S72.001A - Fracture of unspecified part of neck of right femur, initial encounter for closed fracture
[2020-11-06] MEDS: cefTRIAXone SODIUM 1,000 MG in DEXTROSE 5% 50 ML IV SCH (12:15)
[2020-11-06] MEDS: PHENAZOPYRIDINE HCL 200 MG TAB PO SCH (20:42)
[2020-11-07] MEDS: ACETAMINOPHEN 1,000 MG/100 ML VIAL IV SCH ×3 (01:54→17:10)
[2020-11-07] MEDS: ASPIRIN 81 MG ECTAB PO SCH ×2 (09:07→21:44)
[2020-11-07] MEDS: amLODIPine BESYLATE 5 MG TAB PO SCH (09:07)
[2020-11-07] MEDS: PHENAZOPYRIDINE HCL 200 MG TAB PO SCH ×3 (09:08→21:44)
[2020-11-07] MEDS: cefTRIAXone SODIUM 1,000 MG in DEXTROSE 5% 50 ML IV SCH (12:24)
--- NOTE | 2020-11-07 14:15 | Hospitalist Progress Note ---
Date of Service November 07, 2020 Assessment & Plan (1) Acute metabolic encephalopathy: 2/2 CAUTI, monitor for improvement on antibiotics. Microbiology is growing Proteus that is pansensitive, however, continue Rocephin IV with the patient's current mental status. Transition to p.o. just before discharge. (2) Catheter-associated urinary tract infection: Recent Barry for surgery. Rocephin started along with pyridium as tolerated. Monitor for clinical uajkznllqhd-[id number] abx once culture results return. (3) Closed hip fracture: Initial CT head negative/CT C-spine negative after traumatic fall. Right intertrochanteric hip fracture s/p fall, POD#7 She is oxygenating well on room air and is at her baseline mental status. Cont scheduled Tylenol which may be improving her mental status in addition to the new antibiotics. Cont to work with PT and OT with placement planned as soon as she is eating again. Nurses changing surgical dressing daily or as needed. Aspirin for DVT prophylaxis (4) COVID-19: Saturating well on room air, no signs of pneumonia on repeat CXR No Covid specific therapies indicated at this time. Cont current isolation. Of note CRP is elevated, but hard to say if this is from recent surgery vs covid activity vs other. Considered steroid administration, however, this may cause profound delirium in someone with end stage dementia. She may also be delirious now, and this may worsen the current situation. Would hold off on this until she becomes hypoxic or doesn't improve. (5) Hypertension: At goal, cont Tylenol for consistent pain control. Scheduled APAP per plan above. Continue amlodipine (6) CKD (chronic kidney disease), stage III: Renal function at baseline, cont to avoid nephrotoxic substances and renally dose medications as appropriate. (7) Dementia: back to baseline mental status and more awake today but not reliably eating. CRP was elevated so COVID activity may be increased. Monitor for delirium which appears to be present, reorient as necessary (8) DVT prophylaxis: ASA 81mg PO BID Full Code Dispo-uncertain at this time. Poss DC to SNF in am as long as she is reliably eating and has an improved clinical disposition. was updated today by phone. Laine Ahmadi DO [facility] Hospitalist Admission and Anticipated Discharge Date Admission Date: October 30, 2020 Subjective 80 yo F admitted for R hip fracture, COVID positive,s/p R trochanteric nail, POD #6 Somewhat more interactive but still not completely back to mental baseline and tolerating p.o. reliably Per primary nurse she did eat breakfast The patient is somnolent and confused and unable to give a review of systems. Review of Systems Review of Systems: All systems reviewed & are unremarkable except as noted in Subjective Physical Exam Physical Exam: CONSTITUTIONAL: elderly, frail, vitals as above, NAD,awake and confused, disoriented and not following instructions or interacting with examiner EYES: normal conjunctivae, no scleral icterus ENT: external ear and nose normal, MMM RESPIRATORY: clear to auscultation bilaterally, no crackles, rales or wheezes, normal respiratory effort CARDIOVASCULAR: regular rate and rhythm, S1 and 2 heard without murmurs, gallops or rubs, no JVD, no peripheral edema GASTROINTESTINAL: soft, nontender, nondistended, no guarding MUSCULOSKELETAL: 5/5 strength throughout generally, wound site covered with clean and dry and intact dressing. SKIN: warm and dry NEUROLOGIC: slight agitation, confusion, ?hallucination, unable to communicate, speaking unintelligible words. Results & Data Results & Data ([facility]) Vital Signs (Past 12 Hours) Vital Signs Temp Pulse Resp BP Pulse Ox 11/07/20 07:15 36.7 C 59 L 16 148/65 H 98 Medications Administered Current Inpatient Medications Amlodipine Besylate (Amlodipine Besylate 5 Mg Tab) 10 mg PO DAILY DARREN Stop: 11/30/20 08:59 Last Admin: 11/07/20 09:07 Dose: 10 mg Documented by: Aspirin (Aspirin 81 Mg Ectab) 81 mg PO BID [facility] Stop: 11/30/20 20:59 Last Admin: 11/07/20 09:07 Dose: 81 mg Documented by: Atorvastatin Calcium (Atorvastatin 10 Mg Tab) 10 mg PO HS [facility] Stop: 11/29/20 20:59 Last Admin: 11/04/20 20:31 Dose: 10 mg Documented by: Bisacodyl (Bisacodyl 10 Mg Supp) 10 mg [place] DAILY PRN PRN Reason: Constipation Stop: 11/29/20 17:19 Famotidine (Famotidine 20 Mg Tab) 20 mg PO BID [facility] Stop: 11/29/20 20:59 Last Admin: 11/05/20 08:54 Dose: 20 mg Documented by: Acetaminophen (Ofirmev) 1,000 mg in 100 mls @ 400 mls/hr IV Q8H [facility] Stop: 11/08/20 15:59 Last Infusion: 11/07/20 10:08 Dose: Infused Documented by: Ceftriaxone Sodium 1,000 mg/ (Dextrose) 50 mls @ 100 mls/hr IV Q24H [facility]; Protocol Stop: 11/11/20 11:59 Last Infusion: 11/07/20 13:20 Dose: Infused Documented by: Magnesium Hydroxide (Magnesium Hydroxide Susp 30 Ml Udc) 30 ml PO DAILY PRN PRN Reason: Constipation Stop: 11/29/20 17:19 Last Admin: 11/05/20 06:21 Dose: 30 ml Documented by: Mirtazapine (Mirtazapine Tab 15 Mg Tab) 15 mg PO [facility] Stop: 11/29/20 20:59 Last Admin: 11/04/20 20:30 Dose: 15 mg Documented by: Naloxone HCl (Naloxone Hcl 0.4 Mg/1 Ml Vial/Carp) 0.1 mg IV UD PRN PRN Reason: Opiate Overdose Stop: 11/29/20 17:19 Naloxone HCl (Naloxone Hcl 0.4 Mg/1 Ml Vial/Carp) 0.1 mg IV UD PRN PRN Reason: Opioid Overdose Stop: 11/30/20 12:08 Olanzapine (Olanzapine Zydis 5 Mg Orally Dis. Tab) 5 mg PO [facility] Stop: 11/29/20 20:59 Last Admin: 11/04/20 20:31 Dose: 5 mg Documented by: Phenazopyridine HCl (Phenazopyridine Hcl 200 Mg Tab) 200 mg PO TID [facility] Stop: 11/09/20 14:01 Last Admin: 11/07/20 13:20 Dose: Not Given Documented by: Senna/Docusate Sodium (Docusate Sodium/Senna 50/8.6mg Tab) 2 tab PO [facility] Stop: 11/29/20 20:59 Last Admin: 11/04/20 20:30 Dose: 2 tab Documented by: Trazodone HCl (Trazodone Hcl 50 Mg Tab) 50 mg PO [facility] Stop: 11/29/20 20:59 Last Admin: 11/04/20 20:31 Dose: 50 mg Documented by: (1) Closed hip fracture Encounter type: initial encounter Laterality: right Qualified Code(s): S72.001A - Fracture of unspecified part of neck of right femur, initial encounter for closed fracture
[2020-11-08] MEDS: ACETAMINOPHEN 1,000 MG/100 ML VIAL IV SCH ×2 (01:41→09:40)
[2020-11-08] MEDS: ASPIRIN 81 MG ECTAB PO SCH ×2 (09:40→20:20)
[2020-11-08] MEDS: PHENAZOPYRIDINE HCL 200 MG TAB PO SCH ×3 (09:40→20:19)
[2020-11-08] MEDS: amLODIPine BESYLATE 5 MG TAB PO SCH (09:40)
[2020-11-08] MEDS: cefTRIAXone SODIUM 1,000 MG in DEXTROSE 5% 50 ML IV SCH (13:07)
--- NOTE | 2020-11-08 18:11 | Hospitalist Progress Note ---
Date of Service November 08, 2020 Assessment & Plan (1) Acute metabolic encephalopathy: Secondary to CAUTI, monitor for improvement on antibiotics. Microbiology is growing Proteus that is pansensitive, however, continue Rocephin IV with the patient's current mental status. Transition to p.o. just before discharge. No more signs of infection Remains very weak and lethargic and has not been eating or drinking Needs to be eating reasonably before she can be transferred to [facility] (2) Catheter-associated urinary tract infection: Recent Barry for surgery. Rocephin started along with pyridium as tolerated. Monitor for clinical lidyregpqup-xv-rwekywfz abx once culture results return. (3) Closed hip fracture: Initial CT head negative/CT C-spine negative after traumatic fall. Right intertrochanteric hip fracture s/p fall, POD#7 She is oxygenating well on room air and is at her baseline mental status. Cont scheduled Tylenol which may be improving her mental status in addition to the new antibiotics. Cont to work with PT and OT with placement planned as soon as she is eating again. Nurses changing surgical dressing daily or as needed. Aspirin for DVT prophylaxis (4) COVID-19: Saturating well on room air, no signs of pneumonia on repeat CXR No Covid specific therapies indicated at this time. Cont current isolation. Of note CRP is elevated, but hard to say if this is from recent surgery vs covid activity vs other. Considered steroid administration, however, this may cause profound delirium in someone with end stage dementia. She may also be delirious now, and this may worsen the current situation. Would hold off on this until she becomes hypoxic or doesn't improve. We will check another CRP tomorrow (5) Hypertension: At goal, cont Tylenol for consistent pain control. Scheduled APAP per plan above. Continue amlodipine (6) CKD (chronic kidney disease), stage III: Renal function at baseline, cont to avoid nephrotoxic substances and renally dose medications as appropriate. (7) Dementia: Back to baseline mental status and more awake today but not reliably eating. Monitor for delirium which appears to be present, reorient as necessary (8) DVT prophylaxis: ASA 81mg PO BID Full Code Dispo-uncertain at this time. Poss DC to SNF in am as long as she is reliably eating and has an improved clinical disposition. was updated today by phone. Laine Ahmadi DO [facility] Hospitalist Admission and Anticipated Discharge Date Admission Date: October 30, 2020 Subjective The patient was seen and examined in medical floor She is status post right intertrochanteric hip repair POD #8 Has been going through acute metabolic encephalopathy secondary to catheter induced UTI Remains minimally responsive to commands but alert and awake Has not been eating or drinking enough Review of Systems Review of Systems: Unobtainable due to mental health condition Physical Exam Physical Exam: Lying in bed comfortably Constitutional: + ill appearing and + thin Eyes: PERRL, conjunctivae normal, anicteric sclerae ENMT: external ear and nose normal, oropharynx normal Neck: trachea midline, no thyromegaly Respiratory: normal respiratory effort; no respiratory distress Auscultation: + diminished lung sounds Cardiovascular: Rate/Rhythm: regular rate and regular rhythm Heart Sounds: no murmur Gastrointestinal (Abdomen): Inspection/Auscultation: normal bowel sounds; abdomen not distended Percussion/Palpation: abdomen soft; abdomen nontender Musculoskeletal: No acute arthritis in any joint Neurologic: Alert and awake. Nonverbal today and not been responding to commands Lymphatic: no cervical or axillary lymphadenopathy Results & Data Results & Data ([facility]) Vital Signs (Past 12 Hours) Vital Signs Temp Pulse Resp BP Pulse Ox 11/08/20 15:17 36.6 C 69 18 157/67 H 99 11/08/20 07:34 36.9 C 63 16 137/67 95 Medications Administered Current Inpatient Medications Amlodipine Besylate (Amlodipine Besylate 5 Mg Tab) 10 mg PO DAILY [facility] Stop: 11/30/20 08:59 Last Admin: 11/08/20 09:40 Dose: 10 mg Documented by: Aspirin (Aspirin 81 Mg Ectab) 81 mg PO BID [facility] Stop: 11/30/20 20:59 Last Admin: 11/08/20 09:40 Dose: 81 mg Documented by: Atorvastatin Calcium (Atorvastatin 10 Mg Tab) 10 mg PO HS [facility] Stop: 11/29/20 20:59 Last Admin: 11/04/20 20:31 Dose: 10 mg Documented by: Bisacodyl (Bisacodyl 10 Mg Supp) 10 mg IN DAILY PRN PRN Reason: Constipation Stop: 11/29/20 17:19 Famotidine (Famotidine 20 Mg Tab) 20 mg PO BID [facility] Stop: 11/29/20 20:59 Last Admin: 11/05/20 08:54 Dose: 20 mg Documented by: Ceftriaxone Sodium 1,000 mg/ (Dextrose) 50 mls @ 100 mls/hr IV Q24H [facility]; Protocol Stop: 11/11/20 11:59 Last Infusion: 11/08/20 13:50 Dose: Infused Documented by: Magnesium Hydroxide (Magnesium Hydroxide Susp 30 Ml Udc) 30 ml PO DAILY PRN PRN Reason: Constipation Stop: 11/29/20 17:19 Last Admin: 11/05/20 06:21 Dose: 30 ml Documented by: Mirtazapine (Mirtazapine Tab 15 Mg Tab) 15 mg PO HS [facility] Stop: 11/29/20 20:59 Last Admin: 11/04/20 20:30 Dose: 15 mg Documented by: Naloxone HCl (Naloxone Hcl 0.4 Mg/1 Ml Vial/Carp) 0.1 mg IV UD PRN PRN Reason: Opiate Overdose Stop: 11/29/20 17:19 Naloxone HCl (Naloxone Hcl 0.4 Mg/1 Ml Vial/Carp) 0.1 mg IV UD PRN PRN Reason: Opioid Overdose Stop: 11/30/20 12:08 Olanzapine (Olanzapine Zydis 5 Mg Orally Dis. Tab) 5 mg PO [facility] Stop: 11/29/20 20:59 Last Admin: 11/04/20 20:31 Dose: 5 mg Documented by: Phenazopyridine HCl (Phenazopyridine Hcl 200 Mg Tab) 200 mg PO TID [facility] Stop: 11/09/20 14:01 Last Admin: 11/08/20 13:08 Dose: 200 mg Documented by: Senna/Docusate Sodium (Docusate Sodium/Senna 50/8.6mg Tab) 2 tab PO [facility] Stop: 11/29/20 20:59 Last Admin: 11/04/20 20:30 Dose: 2 tab Documented by: Trazodone HCl (Trazodone Hcl 50 Mg Tab) 50 mg PO [facility] Stop: 11/29/20 20:59 Last Admin: 11/04/20 20:31 Dose: 50 mg Documented by: (1) Closed hip fracture Encounter type: initial encounter Laterality: right Qualified Code(s): S72.001A - Fracture of unspecified part of neck of right femur, initial encounter for closed fracture
[2020-11-08] MEDS ORDERED: ACETAMINOPHEN 1,000 MG/100 ML VIAL IV PRN (18:14)
[2020-11-09 06:54] LABS: Basophils # (auto) 0.01 K/uL (0-0.2); Basophils % (auto) 0.1 %; Eosinophils # (auto) 0.05 K/uL (0-0.5); Eosinophils % (auto) 0.5 %; Hematocrit (blood only) 38.8 % (37-47); Hemoglobin 12.9 g/dL (12.0-16.0); Immature Granulocytes # (auto) 0.09 K/uL (0.00-0.02); Immature Granulocytes % (auto) 0.9 %; Lymphocytes # (auto) 1.08 K/uL (1.2-3.4); Lymphocytes % (auto) 11.3 %; Mean Corpuscular Hemoglobin 32.7 pg (25-34); Mean Corpuscular Hgb Conc 33.2 g/dL (32-36); Mean Corpuscular Volume 98.5 fL (80-100); Mean Platelet Volume 10.4 fL (7.4-10.4); Monocytes # (auto) 0.51 K/uL (0.11-0.59); Monocytes % (auto) 5.3 %; Neutrophils # (auto) 7.85 K/uL (1.4-6.5); Neutrophils % (auto) 81.9 %; Platelet Count 528 K/uL (130-400); RDW Coefficient of Variation 13.2 % (11.5-14.5); RDW Standard Deviation 47.6 fL (36.4-46.3); Red Blood Count 3.94 M/uL (4.2-5.4); White Blood Count 9.59 K/uL (4.8-10.8)
[2020-11-09 07:20] LABS: BUN Creatinine Ratio 58.8 (10-20); Calcium 8.9 mg/dl (8.5-10.1); Creatinine Clr Calc Pharmacy 47.7 ml/min; Est GFR (African American) 88.7; Est GFR (Non-African American) 76.5; Potassium 3.3 mmol/L (3.5-5.1)
[2020-11-09 07:21] LABS: C Reactive Protein 4.98 mg/dl (0-0.29)
[2020-11-09] MEDS ORDERED: POTASSIUM CHLORIDE CRTAB 20 MEQ TABCR PO STA (08:01)
[2020-11-09] MEDS: ASPIRIN 81 MG ECTAB PO SCH ×2 (09:29→20:45)
[2020-11-09] MEDS: amLODIPine BESYLATE 5 MG TAB PO SCH (09:29)
[2020-11-09] MEDS: PHENAZOPYRIDINE HCL 200 MG TAB PO SCH ×2 (09:30→13:41)
[2020-11-09] MEDS: cefTRIAXone SODIUM 1,000 MG in DEXTROSE 5% 50 ML IV SCH (11:28)
--- NOTE | 2020-11-09 15:02 | Hospitalist Progress Note ---
Date of Service November 09, 2020 Assessment & Plan (1) Acute metabolic encephalopathy: Secondary to CAUTI, monitor for improvement on antibiotics. Microbiology is growing Proteus that is pansensitive, however, continue Rocephin IV with the patient's current mental status. Transition to p.o. just before discharge. No more signs of infection Remains very weak and lethargic and has not been eating or drinking Needs to be eating reasonably before she can be transferred to retirement/[facility] facility Remains weak and lethargic but not drowsy as before Advised to eat and drink more before she can be transferred to skilled care facility (2) Catheter-associated urinary tract infection: Recent Barry for surgery. Rocephin started along with pyridium as tolerated. Monitor for clinical czgcilqfolf-ft-owluqvxr abx once culture results return. We will continue current intravenous antibiotic (3) Closed hip fracture: Initial CT head negative/CT C-spine negative after traumatic fall. Right intertrochanteric hip fracture s/p fall, POD#7 She is oxygenating well on room air and is at her baseline mental status. Cont scheduled Tylenol which may be improving her mental status in addition to the new antibiotics. Cont to work with PT and OT with placement planned as soon as she is eating again. Nurses changing surgical dressing daily or as needed. Aspirin for DVT prophylaxis (4) COVID-19: Saturating well on room air, no signs of pneumonia on repeat CXR No Covid specific therapies indicated at this time. Cont current isolation. Of note CRP is elevated, but hard to say if this is from recent surgery vs covid activity vs other. Considered steroid administration, however, this may cause profound delirium in someone with end stage dementia. She may also be delirious now, and this may worsen the current situation. Would hold off on this until she becomes hypoxic or doesn't improve. We will check another CRP tomorrow Her CRP has decreased to 4.98 from 15.51 No respiratory symptoms (5) Hypertension: At goal, cont Tylenol for consistent pain control. Scheduled APAP per plan above. Continue amlodipine (6) CKD (chronic kidney disease), stage III: Renal function at baseline, cont to avoid nephrotoxic substances and renally dose medications as appropriate. (7) Dementia: Back to baseline mental status and more awake today but not reliably eating. Monitor for delirium which appears to be present, reorient as necessary (8) DVT prophylaxis: ASA 81mg PO BID Full Code Dispo-uncertain at this time. Poss DC to SNF in am as long as she is reliably eating and has an improved clinical disposition. was updated today by phone. Admission and Anticipated Discharge Date Admission Date: October 30, 2020 Subjective The patient was seen and examined in medical floor She is status post right intertrochanteric hip repair POD #8 Has been going through acute metabolic encephalopathy secondary to catheter induced UTI Remains minimally responsive to commands but alert and awake Has not been eating or drinking enough 11/09/2020 Patient was seen and examined in medical floor She remains stable without any distress but has not been eating or drinking any Her metabolic encephalopathy seems to be improving Review of Systems Review of Systems: Unobtainable due to cognitive status Physical Exam Physical Exam: Lying in bed comfortably Constitutional: + ill appearing and + thin Eyes: PERRL, conjunctivae normal, anicteric sclerae ENMT: external ear and nose normal, oropharynx normal Neck: trachea midline, no thyromegaly Respiratory: normal respiratory effort; no respiratory distress Auscultation: + diminished lung sounds Cardiovascular: Rate/Rhythm: regular rate and regular rhythm Heart Sounds: no murmur Gastrointestinal (Abdomen): Inspection/Auscultation: normal bowel sounds; abdomen not distended Percussion/Palpation: abdomen soft; abdomen nontender Musculoskeletal: No acute arthritis in any joint Neurologic: moves all extremities and awake Alert and awake but noncommunicative Lymphatic: no cervical or axillary lymphadenopathy Results & Data Results & Data ([facility]) Vital Signs (Past 12 Hours) Vital Signs Temp Pulse Resp BP Pulse Ox Pulse Ox 11/09/20 09:38 96 11/09/20 07:30 36.9 C 74 20 160/70 H 96 Laboratory Results Short CBC 11/09/20 Range/Units 06:35 WBC 9.59 (4.8-10.8) K/uL Hgb 12.9 (12.0-16.0) g/dL Hct 38.8 (37-47) % Plt Count 528 H (130-400) K/uL BMP 11/09/20 06:35 Sodium 148 H Potassium 3.3 L Chloride 118 H Carbon Dioxide 26 BUN 44 H Creatinine 0.74 Glucose 111 H Calcium 8.9 Medications Administered Current Inpatient Medications Amlodipine Besylate (Amlodipine Besylate 5 Mg Tab) 10 mg PO DAILY [facility] Stop: 11/30/20 08:59 Last Admin: 11/09/20 09:29 Dose: 10 mg Documented by: Aspirin (Aspirin 81 Mg Ectab) 81 mg PO BID [facility] Stop: 11/30/20 20:59 Last Admin: 11/09/20 09:29 Dose: 81 mg Documented by: Atorvastatin Calcium (Atorvastatin 10 Mg Tab) 10 mg PO HS [facility] Stop: 11/29/20 20:59 Last Admin: 11/04/20 20:31 Dose: 10 mg Documented by: Bisacodyl (Bisacodyl 10 Mg Supp) 10 mg RI DAILY PRN PRN Reason: Constipation Stop: 11/29/20 17:19 Famotidine (Famotidine 20 Mg Tab) 20 mg PO BID [facility] Stop: 11/29/20 20:59 Last Admin: 11/05/20 08:54 Dose: 20 mg Documented by: Ceftriaxone Sodium 1,000 mg/ (Dextrose) 50 mls @ 100 mls/hr IV Q24H [facility]; Protocol Stop: 11/11/20 11:59 Last Infusion: 11/09/20 11:58 Dose: Infused Documented by: Acetaminophen (Ofirmev) 1,000 mg in 100 mls @ 400 mls/hr IV Q8H PRN PRN Reason: Pain Stop: 11/11/20 18:13 Last Infusion: 11/08/20 19:24 Dose: Infused Documented by: Magnesium Hydroxide (Magnesium Hydroxide Susp 30 Ml Udc) 30 ml PO DAILY PRN PRN Reason: Constipation Stop: 11/29/20 17:19 Last Admin: 11/05/20 06:21 Dose: 30 ml Documented by: Mirtazapine (Mirtazapine Tab 15 Mg Tab) 15 mg PO [facility] Stop: 11/29/20 20:59 Last Admin: 11/04/20 20:30 Dose: 15 mg Documented by: Naloxone HCl (Naloxone Hcl 0.4 Mg/1 Ml Vial/Carp) 0.1 mg IV UD PRN PRN Reason: Opiate Overdose Stop: 11/29/20 17:19 Naloxone HCl (Naloxone Hcl 0.4 Mg/1 Ml Vial/Carp) 0.1 mg IV UD PRN PRN Reason: Opioid Overdose Stop: 11/30/20 12:08 Olanzapine (Olanzapine Zydis 5 Mg Orally Dis. Tab) 5 mg PO [facility] Stop: 11/29/20 20:59 Last Admin: 11/04/20 20:31 Dose: 5 mg Documented by: Senna/Docusate Sodium (Docusate Sodium/Senna 50/8.6mg Tab) 2 tab PO [facility] Stop: 11/29/20 20:59 Last Admin: 11/04/20 20:30 Dose: 2 tab Documented by: Trazodone HCl (Trazodone Hcl 50 Mg Tab) 50 mg PO [facility] Stop: 11/29/20 20:59 Last Admin: 11/04/20 20:31 Dose: 50 mg Documented by: (1) Closed hip fracture Encounter type: initial encounter Laterality: right Qualified Code(s): S72.001A - Fracture of unspecified part of neck of right femur, initial encounter for closed fracture
[2020-11-10] MEDS: ASPIRIN 81 MG ECTAB PO SCH ×2 (08:12→20:41)
[2020-11-10] MEDS: amLODIPine BESYLATE 5 MG TAB PO SCH (08:12)
[2020-11-10] MEDS: MAGNESIUM HYDROXIDE SUSP 30 ML UDC PO PRN (08:21)
[2020-11-10 11:22] LABS: BUN Creatinine Ratio 58.1 (10-20); Calcium 9.5 mg/dl (8.5-10.1); Creatinine Clr Calc Pharmacy 44.7 ml/min; Est GFR (African American) 81.9; Est GFR (Non-African American) 70.7; Potassium 4.5 mmol/L (3.5-5.1)
[2020-11-10] MEDS: cefTRIAXone SODIUM 1,000 MG in DEXTROSE 5% 50 ML IV SCH (12:28)
--- NOTE | 2020-11-10 15:13 | Hospitalist Progress Note ---
Date of Service November 10, 2020 Assessment & Plan (1) Acute metabolic encephalopathy: Secondary to CAUTI, monitor for improvement on antibiotics. Microbiology is growing Proteus that is pansensitive, however, continue Rocephin IV with the patient's current mental status. Transition to p.o. just before discharge. No more signs of infection Remains very weak and lethargic and has not been eating or drinking Needs to be eating reasonably before she can be transferred to skilled nursing/[facility] facility Remains weak and lethargic but not drowsy as before Advised to eat and drink more before she can be transferred to skilled care facility Remains hemodynamically stable but has not been talking and/or eating We will try to push food and fluids (2) Catheter-associated urinary tract infection: Recent Barry for surgery. Rocephin started along with pyridium as tolerated. Monitor for clinical qatjmoaryxu-qv-mkuyrgvs abx once culture results return. We will continue current intravenous antibiotic Infection seems to be controlled and will continue current intravenous antibiotic (3) Closed hip fracture: Initial CT head negative/CT C-spine negative after traumatic fall. Right intertrochanteric hip fracture s/p fall, POD#7 She is oxygenating well on room air and is at her baseline mental status. Cont scheduled Tylenol which may be improving her mental status in addition to the new antibiotics. Cont to work with PT and OT with placement planned as soon as she is eating again. Nurses changing surgical dressing daily or as needed. Aspirin for DVT prophylaxis (4) COVID-19: Saturating well on room air, no signs of pneumonia on repeat CXR No Covid specific therapies indicated at this time. Cont current isolation. Of note CRP is elevated, but hard to say if this is from recent surgery vs covid activity vs other. Considered steroid administration, however, this may cause profound delirium in someone with end stage dementia. She may also be delirious now, and this may worsen the current situation. Would hold off on this until she becomes hypoxic or doesn't improve. We will check another CRP tomorrow Her CRP has decreased to 4.98 from 15.51 No respiratory symptoms-May have profound weakness from Covid (5) Hypertension: At goal, cont Tylenol for consistent pain control. Scheduled APAP per plan above. Continue amlodipine (6) CKD (chronic kidney disease), stage III: Renal function at baseline, cont to avoid nephrotoxic substances and renally dose medications as appropriate. (7) Dementia: Back to baseline mental status and more awake today but not reliably eating. Monitor for delirium which appears to be present, reorient as necessary (8) DVT prophylaxis: ASA 81mg PO BID Full Code Dispo-uncertain at this time. Poss DC to SNF in am as long as she is reliably eating and has an improved clinical disposition. was updated today by phone. Admission and Anticipated Discharge Date Admission Date: October 30, 2020 Subjective The patient was seen and examined in medical floor She is status post right intertrochanteric hip repair POD #8 Has been going through acute metabolic encephalopathy secondary to catheter induced UTI Remains minimally responsive to commands but alert and awake Has not been eating or drinking enough 11/09/2020 Patient was seen and examined in medical floor She remains stable without any distress but has not been eating or drinking any Her metabolic encephalopathy seems to be improving 11/10/2020 The patient was seen and examined in medical floor She remains stable and has been talking and eating Review of Systems Review of Systems: Unobtainable due to cognitive status Physical Exam Physical Exam: Lying in bed comfortably Constitutional: + ill appearing and + thin Eyes: PERRL, conjunctivae normal, anicteric sclerae ENMT: external ear and nose normal, oropharynx normal Neck: trachea midline, no thyromegaly Respiratory: normal respiratory effort; no respiratory distress Auscultation: + diminished lung sounds Cardiovascular: Rate/Rhythm: regular rate and regular rhythm Heart Sounds: no murmur Gastrointestinal (Abdomen): Inspection/Auscultation: normal bowel sounds; abdomen not distended Percussion/Palpation: abdomen soft; abdomen nontender Musculoskeletal: No acute arthritis in any joint Neurologic: moves all extremities and awake Lymphatic: no cervical or axillary lymphadenopathy Results & Data Results & Data ([facility]) Vital Signs (Past 12 Hours) Vital Signs Temp Pulse Resp BP Pulse Ox 11/10/20 07:11 36.9 C 76 20 154/69 H 94 Laboratory Results [facility] 11/10/20 10:32 Sodium 152 H Potassium 4.5 D Chloride 119 H Carbon Dioxide 30 BUN 46 H Creatinine 0.79 Glucose 109 H Calcium 9.5 Medications Administered Current Inpatient Medications Amlodipine Besylate (Amlodipine Besylate 5 Mg Tab) 10 mg PO DAILY [facility] Stop: 11/30/20 08:59 Last Admin: 11/10/20 08:12 Dose: 10 mg Documented by: Aspirin (Aspirin 81 Mg Ectab) 81 mg PO BID [facility] Stop: 11/30/20 20:59 Last Admin: 11/10/20 08:12 Dose: 81 mg Documented by: Atorvastatin Calcium (Atorvastatin 10 Mg Tab) 10 mg PO HS [facility] Stop: 11/29/20 20:59 Last Admin: 11/04/20 20:31 Dose: 10 mg Documented by: Bisacodyl (Bisacodyl 10 Mg Supp) 10 mg IA DAILY PRN PRN Reason: Constipation Stop: 11/29/20 17:19 Famotidine (Famotidine 20 Mg Tab) 20 mg PO BID [facility] Stop: 11/29/20 20:59 Last Admin: 11/05/20 08:54 Dose: 20 mg Documented by: Ceftriaxone Sodium 1,000 mg/ (Dextrose) 50 mls @ 100 mls/hr IV Q24H [facility]; Protocol Stop: 11/11/20 11:59 Last Infusion: 11/10/20 13:44 Dose: Infused Documented by: Acetaminophen (Ofirmev) 1,000 mg in 100 mls @ 400 mls/hr IV Q8H PRN PRN Reason: Pain Stop: 11/11/20 18:13 Last Infusion: 11/08/20 19:24 Dose: Infused Documented by: Magnesium Hydroxide (Magnesium Hydroxide Susp 30 Ml Udc) 30 ml PO DAILY PRN PRN Reason: Constipation Stop: 11/29/20 17:19 Last Admin: 11/10/20 08:21 Dose: 30 ml Documented by: Mirtazapine (Mirtazapine Tab 15 Mg Tab) 15 mg PO [facility] Stop: 11/29/20 20:59 Last Admin: 11/04/20 20:30 Dose: 15 mg Documented by: Naloxone HCl (Naloxone Hcl 0.4 Mg/1 Ml Vial/Carp) 0.1 mg IV UD PRN PRN Reason: Opiate Overdose Stop: 11/29/20 17:19 Naloxone HCl (Naloxone Hcl 0.4 Mg/1 Ml Vial/Carp) 0.1 mg IV UD PRN PRN Reason: Opioid Overdose Stop: 11/30/20 12:08 Olanzapine (Olanzapine Zydis 5 Mg Orally Dis. Tab) 5 mg PO [facility] Stop: 11/29/20 20:59 Last Admin: 11/04/20 20:31 Dose: 5 mg Documented by: Senna/Docusate Sodium (Docusate Sodium/Senna 50/8.6mg Tab) 2 tab PO HS [facility] Stop: 11/29/20 20:59 Last Admin: 11/04/20 20:30 Dose: 2 tab Documented by: Trazodone HCl (Trazodone Hcl 50 Mg Tab) 50 mg PO [facility] Stop: 11/29/20 20:59 Last Admin: 11/04/20 20:31 Dose: 50 mg Documented by: (1) Closed hip fracture Encounter type: initial encounter Laterality: right Qualified Code(s): S72.001A - Fracture of unspecified part of neck of right femur, initial encounter for closed fracture
[2020-11-11] MEDS: amLODIPine BESYLATE 5 MG TAB PO SCH (08:03)
[2020-11-11] MEDS: ASPIRIN 81 MG ECTAB PO SCH (08:03)
--- NOTE | 2020-11-11 11:26 | Hospitalist Progress Note ---
Date of Service November 11, 2020 Assessment & Plan (1) Acute metabolic encephalopathy: Secondary to CAUTI, monitor for improvement on antibiotics. Microbiology is growing Proteus that is pansensitive, however, continue Rocephin IV with the patient's current mental status. Transition to p.o. just before discharge. No more signs of infection Remains very weak and lethargic and has not been eating or drinking Needs to be eating reasonably before she can be transferred to residential/[place] facility Remains weak and lethargic but not drowsy as before Advised to eat and drink more before she can be transferred to skilled care facility Remains hemodynamically stable Has been eating and drinking reasonably as of this morning (2) Catheter-associated urinary tract infection: Recent Barry for surgery. Rocephin started along with pyridium as tolerated. Monitor for clinical [id number] abx once culture results return. We will continue current intravenous antibiotic Infection seems to be controlled and will continue current intravenous antibiotic Infection seems to be controlled with intravenous antibiotic the acute delirium is resolved (3) Closed hip fracture: Initial CT head negative/CT C-spine negative after traumatic fall. Right intertrochanteric hip fracture s/p fall, POD#7 She is oxygenating well on room air and is at her baseline mental status. Cont scheduled Tylenol which may be improving her mental status in addition to the new antibiotics. Cont to work with PT and OT with placement planned as soon as she is eating again. Nurses changing surgical dressing daily or as needed. Aspirin for DVT prophylaxis (4) COVID-19: Saturating well on room air, no signs of pneumonia on repeat CXR No Covid specific therapies indicated at this time. Cont current isolation. Of note CRP is elevated, but hard to say if this is from recent surgery vs covid activity vs other. Considered steroid administration, however, this may cause profound delirium in someone with end stage dementia. She may also be delirious now, and this may worsen the current situation. Would hold off on this until she becomes hypoxic or doesn't improve. We will check another CRP tomorrow Her CRP has decreased to 4.98 from 15.51 No respiratory symptoms-May have profound weakness from Covid (5) Hypertension: At goal, cont Tylenol for consistent pain control. Scheduled APAP per plan above. Continue amlodipine (6) CKD (chronic kidney disease), stage III: Renal function at baseline, cont to avoid nephrotoxic substances and renally dose medications as appropriate. Blood pressure seems to be upper limit of normal (7) Dementia: Back to baseline mental status and more awake today but not reliably eating. Monitor for delirium which appears to be present, reorient as necessary (8) DVT prophylaxis: ASA 81mg PO BID Full Code Dispo-uncertain at this time. Poss DC to SNF in am as long as she is reliably eating and has an improved clinical disposition. was updated today by phone. Will be discharged to [facility] this afternoon Admission and Anticipated Discharge Date Admission Date: October 30, 2020 Subjective The patient was seen and examined in medical floor She is status post right intertrochanteric hip repair POD #8 Has been going through acute metabolic encephalopathy secondary to catheter induced UTI Remains minimally responsive to commands but alert and awake Has not been eating or drinking enough 11/09/2020 Patient was seen and examined in medical floor She remains stable without any distress but has not been eating or drinking any Her metabolic encephalopathy seems to be improving 11/10/2020 The patient was seen and examined in medical floor She remains stable and has been talking and eating 11/11/2020 The patient was seen and examined in medical floor in Covid unit She remains stable and 8 reasonable amount Does not have any more significant lethargy and or delirium Review of Systems Review of Systems: Drowsy and just returned from [place] Physical Exam Physical Exam: Lying in bed comfortably Constitutional: + ill appearing and + thin Eyes: PERRL, conjunctivae normal, anicteric sclerae ENMT: external ear and nose normal, oropharynx normal Neck: trachea midline, no thyromegaly Respiratory: normal respiratory effort; no respiratory distress Auscultation: + diminished lung sounds Cardiovascular: Rate/Rhythm: regular rate and regular rhythm Heart Sounds: no murmur Gastrointestinal (Abdomen): Inspection/Auscultation: normal bowel sounds; abdomen not distended Percussion/Palpation: abdomen soft; abdomen nontender Musculoskeletal: No acute arthritis in any joint Neurologic: moves all extremities and awake Lymphatic: no cervical or axillary lymphadenopathy Results & Data Results & Data ([facility]) Vital Signs (Past 12 Hours) Vital Signs Temp Pulse Pulse Resp BP BP Pulse Ox 11/11/20 07:17 36.9 C 83 122 H 18 161/93 H 94 11/10/20 23:41 36.7 C 86 15 149/72 H 93 Medications Administered Current Inpatient Medications Amlodipine Besylate (Amlodipine Besylate 5 Mg Tab) 10 mg PO DAILY [facility] Stop: 11/30/20 08:59 Last Admin: 11/11/20 08:03 Dose: 10 mg Documented by: Aspirin (Aspirin 81 Mg Ectab) 81 mg PO BID [facility] Stop: 11/30/20 20:59 Last Admin: 11/11/20 08:03 Dose: 81 mg Documented by: Atorvastatin Calcium (Atorvastatin 10 Mg Tab) 10 mg PO HS [facility] Stop: 11/29/20 20:59 Last Admin: 11/04/20 20:31 Dose: 10 mg Documented by: Bisacodyl (Bisacodyl 10 Mg Supp) 10 mg AR DAILY PRN PRN Reason: Constipation Stop: 11/29/20 17:19 Famotidine (Famotidine 20 Mg Tab) 20 mg PO BID [facility] Stop: 11/29/20 20:59 Last Admin: 11/05/20 08:54 Dose: 20 mg Documented by: Ceftriaxone Sodium 1,000 mg/ (Dextrose) 50 mls @ 100 mls/hr IV Q24H [facility]; Protocol Stop: 11/11/20 11:59 Last Infusion: 11/10/20 13:44 Dose: Infused Documented by: Acetaminophen (Ofirmev) 1,000 mg in 100 mls @ 400 mls/hr IV Q8H PRN PRN Reason: Pain Stop: 11/11/20 18:13 Last Infusion: 11/08/20 19:24 Dose: Infused Documented by: Magnesium Hydroxide (Magnesium Hydroxide Susp 30 Ml Udc) 30 ml PO DAILY PRN PRN Reason: Constipation Stop: 11/29/20 17:19 Last Admin: 11/10/20 08:21 Dose: 30 ml Documented by: Mirtazapine (Mirtazapine Tab 15 Mg Tab) 15 mg PO HS [facility] Stop: 11/29/20 20:59 Last Admin: 11/04/20 20:30 Dose: 15 mg Documented by: Naloxone HCl (Naloxone Hcl 0.4 Mg/1 Ml Vial/Carp) 0.1 mg IV UD PRN PRN Reason: Opiate Overdose Stop: 11/29/20 17:19 Naloxone HCl (Naloxone Hcl 0.4 Mg/1 Ml Vial/Carp) 0.1 mg IV UD PRN PRN Reason: Opioid Overdose Stop: 11/30/20 12:08 Olanzapine (Olanzapine Zydis 5 Mg Orally Dis. Tab) [address] [facility] Stop: 11/29/20 20:59 Last Admin: 11/04/20 20:31 Dose: 5 mg Documented by: Senna/Docusate Sodium (Docusate Sodium/Senna 50/8.6mg Tab) [address] [facility] Stop: 11/29/20 20:59 Last Admin: 11/04/20 20:30 Dose: 2 tab Documented by: Trazodone HCl (Trazodone Hcl 50 Mg Tab) [address] [facility] Stop: 11/29/20 20:59 Last Admin: 11/04/20 20:31 Dose: 50 mg Documented by: (1) Closed hip fracture Encounter type: initial encounter Laterality: right Qualified Code(s): S72.001A - Fracture of unspecified part of neck of right femur, initial encounter for closed fracture
--- NOTE | 2020-11-12 07:36 | Discharge Summary ---
Date of Service November 12, 2020 Admission HPI Per Admitting Provider 80-year-old female with PMH dementia, CKD stage III, HTN, and other problems listed below who presents the ED for evaluation after a fall and right hip pain. Patient's dementia is fairly advanced, therefore history is unobtainable from her. I spoke with the staff at [facility] who report that they found the patient on the floor in the bathroom this morning. She had unwitnessed fall. At baseline, patient ambulates unassisted however is confused. The staff reports the patient has been doing well recently. No recent illnesses. She was tested for COVID-19 about 2 weeks ago and was negative. In the ED, patient is found to have right intertrochanteric hip fracture. She also tested positive for COVID-19. She is saturating well on room air and CXR negative for acute cardiopulmonary findings. Admission Exam Per Admitting Provider Constitutional: + thin; no acute distress Vitals as above Eyes: PERRL, conjunctivae normal, anicteric sclerae ENMT: external ear and nose normal, oropharynx normal Respiratory: normal respiratory effort, lungs clear to auscultation Cardiovascular: Rate/Rhythm: regular rate and regular rhythm Vessels: normal peripheral pulses Extremities: no edema Gastrointestinal (Abdomen): normal bowel sounds, soft, nontender, no hepatosplenomegaly Musculoskeletal: Extremities: no cyanosis and no clubbing Does not follow commands to evaluate strength, grimaces when RLE is moved Skin: no rashes, warm and dry Neurologic: PERRL, EOMI, accommodation nl, no face palsy, no dysarthria Psychiatric: Sleeping, arouses to verbal stimuli, does not follow commands Principal Diagnosis IM Nailing of Right Hip Fracture, catheter associated UTI, CKD, dementia, hypertension Discharge Exam Constitutional + ill appearing and + thin Eyes PERRL, conjunctivae normal, anicteric sclerae ENMT external ear and nose normal, oropharynx normal Neck trachea midline, no thyromegaly Respiratory normal respiratory effort; no respiratory distress Auscultation: + diminished lung sounds Cardiovascular Rate/Rhythm: regular rate and regular rhythm Heart Sounds: no murmur Gastrointestinal (Abdomen) Inspection/Auscultation: normal bowel sounds; abdomen not distended Percussion/Palpation: abdomen soft; abdomen nontender Neurologic moves all extremities and awake Lymphatic no cervical or axillary lymphadenopathy Discharge Data Allergies Allergy/AdvReac Type Severity Reaction Status Date / Time Sulfa (Sulfonamide Allergy Mild Unknown Unverified 10/30/20 13:53 Antibiotics) lactose AdvReac Intermediate GI Unverified 10/30/20 13:53 intolerance Consultations 10/30/20 13:28 ED Decision to Admit Stat 10/30/20 17:20 Consult Anesthesiology Routine Consult Case Management - Discharge Planning Routine Consult Case Management - Discharge Planning Routine Consult Orthopedic Surgery Routine 10/31/20 12:09 Consult Case Management - Discharge Planning Routine Procedures Performed Operation Date: 10/31/20 07:00 Actual Procedures p Right Long Troch Nail,(Right) - Franco Fuentes MD s Left Possible Pinning - Franco Fuentes MD Ordered Studies 10/30/20 11:59 CT cervical spine wo con Stat CT head/brain wo con Stat 10/31/20 00:46 MR hip LT wo con Routine 10/31/20 13:00 FL fluoroscopy <1hr Routine FL hip RT 2-3V Routine Hospital Course (1) Acute metabolic encephalopathy: Secondary to CAUTI, monitor for improvement on antibiotics. Microbiology is growing Proteus that is pansensitive, however, continue Rocephin IV with the patient's current mental status. Transition to p.o. just before discharge. No more signs of infection Remains very weak and lethargic and has not been eating or drinking Needs to be eating reasonably before she can be transferred to care home/skilled care facility Remains weak and lethargic but not drowsy as before Advised to eat and drink more before she can be transferred to skilled care facility Remains hemodynamically stable Has been eating and drinking reasonably as of this morning (2) Catheter-associated urinary tract infection: Recent Barry for surgery. Rocephin started along with pyridium as tolerated. Monitor for clinical [id number] abx once culture results return. We will continue current intravenous antibiotic Infection seems to be controlled and will continue current intravenous antibiotic Infection seems to be controlled with intravenous antibiotic the acute delirium is resolved (3) Closed hip fracture: Initial CT head negative/CT C-spine negative after traumatic fall. Right intertrochanteric hip fracture s/p fall, POD#7 She is oxygenating well on room air and is at her baseline mental status. Cont scheduled Tylenol which may be improving her mental status in addition to the new antibiotics. Cont to work with PT and OT with placement planned as soon as she is eating again. Nurses changing surgical dressing daily or as needed. Aspirin for DVT prophylaxis (4) COVID-19: Saturating well on room air, no signs of pneumonia on repeat CXR No Covid specific therapies indicated at this time. Cont current isolation. Of note CRP is elevated, but hard to say if this is from recent surgery vs covid activity vs other. Considered steroid administration, however, this may cause profound delirium in someone with end stage dementia. She may also be delirious now, and this may worsen the current situation. Would hold off on this until she becomes hypoxic or doesn't improve. We will check another CRP tomorrow Her CRP has decreased to 4.98 from 15.51 No respiratory symptoms-May have profound weakness from Covid (5) Hypertension: At goal, cont Tylenol for consistent pain control. Scheduled APAP per plan above. Continue amlodipine (6) CKD (chronic kidney disease), stage III: Renal function at baseline, cont to avoid nephrotoxic substances and renally dose medications as appropriate. Blood pressure seems to be upper limit of normal (7) Dementia: Back to baseline mental status and more awake today but not reliably eating. Monitor for delirium which appears to be present, reorient as necessary (8) DVT prophylaxis: ASA 81mg PO BID Full Code Dispo-uncertain at this time. Poss DC to SNF in am as long as she is reliably eating and has an improved clinical disposition. was updated today by phone. Will be discharged to [facility] this afternoon Total Time Total Time Spent Total Time Spent (In Minutes): 35 minutes Total Time Includes: Examination of the Patient, Discharge Planning, Medication Reconciliation and Communication With Other Providers Discharge Plan Discharge Items Patient Disposition: Transfer Correction Fac Reason For Visit: RIGHT HIP FRACTURE Discharge Diagnosis: IM Nailing of Right Hip Fracture, catheter associated UTI, CKD, dementia, hypertension Condition on Discharge: Fair Activity: Per Instructions section Weightbearing: Full weightbearing Non-emergency contact: Primary Care Provider Call non-emergency contact if: you have any medication questions and your symptoms worsen Follow-up/Referrals: Franco Fuentes MD [Physician] - (Orthopedic follow-up 2-3 weeks from surgery date) [facility] [Primary Care Provider] - Diet: Lactose Intolerant Diet Comment: Minced and moist Addtl Attending Provider Instructions: May Weightbear as tolerated on right leg Will need assistance with feeding and ambulation Pending Studies at Discharge: No Stand-Alone Forms: My [facility] Skilled Items Patient informed of condition?: Yes DNR: No Discharge Level of Care: Skilled Communicable Disease: No Discharge Prognosis: Stable Lines: None Urinary Catheter: Yes Medications and DC Order Prescriptions: New sennosides-docusate sodium [Senokot-S] 8.6-50 mg Tablet 2 tab PO HS 30 Days Qty: 60 RF: 0 aspirin 81 mg Tablet,Delayed Release (Dr/Ec) 81 mg PO BID 30 Days Qty: 60 RF: 0 cephalexin [Keflex] 500 mg capsule 500 mg PO BID 5 Days Qty: 10 RF: 0 Continued atorvastatin 10 mg tablet 10 mg PO HS RF: 0 amlodipine 10 mg tablet 10 mg PO DAILY RF: 0 trazodone 50 mg Tablet 50 mg PO HS RF: 0 famotidine 20 mg tablet 20 mg PO BID RF: 0 mirtazapine 15 mg tablet 15 mg PO HS RF: 0 olanzapine 5 mg tablet,disintegrating 5 mg PO HS RF: 0 Discharge Orders: Discharge Order (Routine); Ordered 11/11/20 Ordered By: Anai Zapata Admission Data Admit Date/Time: 10/30/20 13:50 Attending Provider: Anai Zapata Admit Provider: Anai Zapata [facility] Other Providers: Anai Zapata ; Addie Shipley ; Franco Fuentes ; Evelia Henry ; Laine Ahmadi Other Interventions: Discharge Summary Assessment (RN) Last Done: 11/11/20 11:49
== END 2020-11-11 13:09 | DRG 480 ==
LOC: ED 11:34 → 3E 13:50 → SUATTDRO 13:50 → 3E 16:58